=== PATIENT | female | born 1935 | race Caucasian/White ===

== ENCOUNTER 2018-10-14 09:26 | Observation (INO) ==
[2018-10-14 10:22] LABS: Hematocrit 44.5 % (37.0-47.0); Hemoglobin 14.5 gm/dL (12.5-16.0); Mean Cell Volume 97.8 fl (78-100); Mean Corpuscular Hemoglobin 31.9 pg (27-31); Mean Corpuscular Hgb Conc 32.6 g/dl (32-36); Mean Platelet Volume 10.4 fl (8-12.5); Neutrophil # 4.2 K/mm3 (1.3-6.0); Neutrophil % 89.8 % (42-75.0); Platelet Count 178 K/mm3 (150-450); Red Blood Count 4.55 M/mm3 (4.2-5.4); Red Cell Distribution Width 13.8 % (11.5-14.0); White Blood Count 4.7 K/mm3 (4.0-10.5)
[2018-10-14 10:30] LABS: Troponin I 0.059 ng/mL (0.00-0.10)
[2018-10-14 10:32] LABS: Albumin * 3.6 gm/dl (3.4-5.0); BUN/Creatinine Ratio 20.2 (9.0-21.6); Bilirubin, Total 0.6 mg/dL (0.0-1.1); Ca. Corrected For Albumin 10.1 mg/dL (8.4-10.2); Calcium * 10.1 mg/dL (7.9-10.9); Carbon Dioxide 28.4 mmol/L (24-32.6); Magnesium 1.8 mg/dL (1.2-2.8); Potassium 4.4 mmol/L (3.4-4.6); Total Protein 7.4 gm/dL (6.2-8.2)
[2018-10-14] MEDS ORDERED: FUROSEMIDE 10 MG/ML VIAL IV ONE (11:41)
--- NOTE | 2018-10-14 12:40 | ERNOTE ---
Dyspnea - General Presenting Symptoms: shortness of breath, difficulty of breathing Time Seen by Provider: 10/14/18 09:55 Source: patient Exam Limitations: no limitations - Immun/Allergies/Home Medications Immunizations: IMMUNIZATION HX Immunizations Up to Date Yes History of Influenza Vaccine No Hx Pneumococcal Vaccination No Allergies/Adverse Reactions: Allergies Sulfa (Sulfonamide Antibiotics) Allergy (Verified 10/14/18 09:48) Home Medications: HOME MEDICATIONS Enalapril Maleate [Vasotec] 10 mg PO BID 09/28/14 [Last Taken 09/27/14 17:00] Gemfibrozil [Lopid] 600 mg PO BID 09/28/14 [Last Taken 09/27/14 20:00] Cholecalciferol (Vitamin D3) [Vitamin D] 2,000 unit PO DAILY 04/11/17 [Last Taken Unknown] fluticasone 50 mcg/actuation nasal spray,suspension 2 spray GEOVANNA DAILY 03/20/18 [Last Taken Unknown] warfarin 4 mg tablet See Rx Instructions PO .COMPLEX #30 tab 06/11/18 [Last Taken Unknown] warfarin 5 mg tablet See Rx Instructions PO .COMPLEX #30 tab 06/11/18 [Last Taken Unknown] amlodipine 10 mg tablet 10 mg PO DAILY #30 tab 07/04/18 [Last Taken Unknown] metformin 500 mg tablet 500 mg PO BID #180 tab 09/06/18 [Last Taken Unknown] Blood Sugar Diagnostic [Accu-Chek Joellen Plus test strp] 0 strip .ROUTE .MED SUPPLY 10/14/18 [Last Taken Unknown] Methylcellulose [Fiber] 1,000 mg PO DAILY 10/14/18 [Last Taken Unknown] Novi-3 Fatty Acids [Novi-3] 1,000 mg PO DAILY 10/14/18 [Last Taken Unknown] - History of Present Illness Narrative: Patient presents with progressive shortness of breath, inability to lay flat on her back and swollen ankles. She rates his symptoms as at least moderate in severity. 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 Initiating event: Reports: none Frequency of episodes: Reports: no prior episodes Modifying Factors - (Improves): Reports: nothing Modifying Factors (Worsens): Reports: lying down Associated Symptoms-Dyspnea: Reports: denies symptoms Review of Systems - Review of Systems Constitutional: Present: See HPI EYE: Present: no symptoms reported ENT: Present: no symptoms reported Respiratory: Present: See HPI Cardiology: Present: no symptoms reported Gastrointestinal/Abdominal: Present: no symptoms reported Genitourinary: Present: no symptoms reported Musculoskeletal: Present: no symptoms reported Skin: Present: no symptoms reported Neurological: Present: no symptoms reported Endocrine: Present: no symptoms reported Hematologic/Lymphatic: Present: no symptoms reported Psych: Present: no symptoms reported Medical History (Last Reviewed 10/14/18 @ 09:48 by Jocelyn Kwok RN) Refused influenza vaccine (Acute) Onset Date: ~06/26/18 Anemia, aplastic Onset Date: Unknown Diabetes mellitus type 2 in nonobese Onset Date: Unknown Hyperlipidemia Onset Date: Unknown Hypertension Onset Date: Unknown Hypothyroidism Onset Date: Unknown Vitamin D deficiency Onset Date: Unknown Surgical History: Surgical History (Last Reviewed 10/14/18 @ 09:48 by Jocelyn Kwok RN) History of aortic valve replacement Onset Date: ~1987, History of cholecystectomy Onset Date: Unknown History of hysterectomy Onset Date: ~1964 Family History: Family History (Last Reviewed 10/14/18 @ 09:48 by Jocelyn Kwok RN) Mother Diabetes Hypertension CAD (coronary artery disease) Father , 78 Broken hip Social History: Preferred Language Turkmen Smoking Status Never smoker Have you smoked in the past 12 No months Alcohol Use none Drug Use none (Last Updated 06/26/18 @ 11:51 by Thu Lema MD) No Social History Section defined Physical Exam - Physical Exam General Appearance: Present: wd/wn, alert, moderate distress Head Exam: Present: normal inspection, no evidence of injury Eye Exam: Normal inspection: bilateral, PERRL: bilateral Ears, Nose, Throat: Present: normal ENT inspection, H, normal pharynx Neck: Present: normal inspection, nontender Respiratory: Present: no respiratory distress, no accessory muscle use, chest nontender, accessory muscle use, crackles - in bases Cardiovascular/Chest: Present: regular rate, rhythm, normal peripheral pulses, systolic murmur Gastrointestinal/Abdominal: Present: normal bowel sounds, nontender, nondistended, soft, no organomegaly Rectal Exam: Present: deferred Back Exam: Present: normal inspection, normal range of motion Extremity Exam: Present: normal inspection, non-tender, normal range of motion, extremity edema Neurological Exam: Present: alert, oriented, normal mood/affect Skin Exam: Present: normal color, warm/dry Lymphatic Exam: Present: no adenopathy Progress - Results and Orders Patient's Lab Results:: I have reviewed the patient's lab results. - Vital Signs Patient's Vital Signs:: I have reviewed the patient's vital signs. Vital Signs: Vital Signs 10/14/18 09:40 10/14/18 10:15 10/14/18 11:10 Temperature 37.2 C Pulse Rate 76 81 68 Respiratory Rate 22 H 21 H 12 Blood Pressure 157/72 H 145/89 150/57 H O2 Sat by Pulse Oximetry 91 L 89 L 90 L 10/14/18 11:15 10/14/18 11:40 10/14/18 11:55 Temperature Pulse Rate 68 69 70 Respiratory Rate 28 H 15 Blood Pressure 152/63 H 164/62 H O2 Sat by Pulse Oximetry 91 L 91 L - EKG EKG #1 EKG: NSR EKG read: Reviewed by me - X-Ray X-Ray #1 X-Ray: chest Interpretation: Reviewed by me - Progress/Reassessment Chief Complaint: Dyspnea Plan - Plan Plan: Patient was given 80 mg of Lasix IV push in the emergency department and she will be admitted overnight for attempted correction of her hyperanticoagulation, diuresis to remove or reduce some of the congestive heart failure and echocardiogram will likely be done. Departure Clinical Impression: Coagulation defect, Hypoxemia CHF (congestive heart failure) Qualifiers: Heart failure type: unspecified Heart failure chronicity: acute Qualified Code(s): I50.9 - Heart failure, unspecified - Departure Disposition: Still a patient Condition: Fair
--- NOTE | 2018-10-14 17:40 | HP ---
Chief Complaint - Chief Complaint Date of Service: 10/14/18 Time of Service: 17:27 Chief Complaint: Leg swelling History of Present Illness: This is an 82-year-old female with a past medical history of hypertension hyperlipidemia hypothyroidism anemia presents from home with complaints of lower extremity swelling for the past several weeks. She states that she called her PCPs office today to get an appointment regarding her lower extremity swelling and was asked to go to the emergency room. In the emergency department she was found to be hypoxic down to 89%, with Suprep therapeutic INR of 9, elevated BNP, chest x-ray positive for pulmonary vascular congestion. She is admitted to the CHF pathway. She received 1 dose of 80 mg IV Lasix with good diuresis.She is not actively bleeding from urine or stool. She did notice some blood when she blew her nose but is not having any active nosebleeds. Medical History (Last Reviewed 10/14/18 @ 13:13 by Estefanía Bonilla RN) Refused influenza vaccine (Acute) Onset Date: ~06/26/18 Anemia, aplastic Onset Date: Unknown Diabetes mellitus type 2 in nonobese Onset Date: Unknown Hyperlipidemia Onset Date: Unknown Hypertension Onset Date: Unknown Hypothyroidism Onset Date: Unknown Vitamin D deficiency Onset Date: Unknown Surgical History: Surgical History (Last Reviewed 10/14/18 @ 13:13 by Estefanía Bonilla RN) History of aortic valve replacement Onset Date: ~1987, History of cholecystectomy Onset Date: Unknown History of hysterectomy Onset Date: ~1964 Family History: Family History (Last Reviewed 10/14/18 @ 13:13 by Estefanía Bonilla RN) Mother Diabetes Hypertension CAD (coronary artery disease) Father , 78 Broken hip Social History: Patient Lives/Resources Home Utilized Occupation retired Preferred Language Turkmen Do you have any orthodox or Yes: Sabianist cultural preference? Smoking Status Never smoker Have you smoked in the past 12 No months Alcohol Use none Drug Use none (Last Updated 06/26/18 @ 11:51 by Thu Lema MD) No Social History Section defined Review Of Systems (GEN) - Review of Systems Generalized/Overall Review: Absent: Fever Respiratory: Absent: Shortness of Breath Cardiac: Present: Edema. Absent: Chest Pain Abdominal: Absent: Abdominal Pain Genitourinary: Present: Frequency Misc: All systems neg except as marked Immunizations: IMMUNIZATION HX Immunizations Up to Date Yes History of Influenza Vaccine No Hx Pneumococcal Vaccination No Allergies/Adverse Reactions: Allergies Allergy/AdvReac Type Severity Reaction Status Date / Time Sulfa (Sulfonamide Allergy Verified 10/14/18 09:48 Antibiotics) Home Medications: HOME MEDICATIONS Enalapril Maleate [Vasotec] 10 mg PO BID 09/28/14 [Last Taken 10/13/18] Gemfibrozil [Lopid] 600 mg PO BID 09/28/14 [Last Taken 10/13/18] Cholecalciferol (Vitamin D3) [Vitamin D] 2,000 unit PO DAILY 04/11/17 [Last Taken 10/13/18] fluticasone 50 mcg/actuation nasal spray,suspension 2 spray GEOVANNA DAILY 03/20/18 [Last Taken 10/13/18] warfarin 4 mg tablet See Rx Instructions PO .COMPLEX #30 tab 06/11/18 [Last Taken 10/13/18] warfarin 5 mg tablet See Rx Instructions PO .COMPLEX #30 tab 06/11/18 [Last Taken 10/13/18] amlodipine 10 mg tablet 10 mg PO DAILY #30 tab 07/04/18 [Last Taken 10/13/18] metformin 500 mg tablet 500 mg PO BID #180 tab 09/06/18 [Last Taken 10/13/18] Blood Sugar Diagnostic [Accu-Chek Joellen Plus test strp] 0 strip .ROUTE .MEDSUPPLY 10/14/18 [Last Taken Unknown] Methylcellulose [Fiber] 1,000 mg PO DAILY 10/14/18 [Last Taken 10/13/18] Kerrick-3 Fatty Acids [Kerrick-3] 1,000 mg PO DAILY 10/14/18 [Last Taken 10/13/18] Exam - Exam Vital Signs: Vital Signs - Last Taken Temp 36.4 C 10/14/18 13:16 Pulse 83 10/14/18 13:16 Resp 18 10/14/18 13:16 BP 146/59 10/14/18 13:16 Pulse Ox 96 10/14/18 13:16 Constitutional: Present: Alert, Cooperative, Well developed, Well nourished, No distress ENT Exam: Absent: hearing grossly normal Respiratory: Present: crackles - Bilateral bases left worse than right. Absent: accessory muscle use, rhonchi, wheezing Cardiovascular/Chest: Present: normal peripheral pulses Peripheral Pulses: dorsalis-pedis (R): 2+, dorsalis-pedis (L): 2+ Abdomen: Present: Normal bowel sounds, soft, nontender Extremity: Present: lower extremity edema - 1+ bilaterally Diagnostic Studies: Abnormal Lab Results 10/14/18 10/14/18 10/14/18 Range/Units 10:05 10:05 10:20 MCH 31.9 H (27-31) pg Neutrophils % 89.8 H (42-75.0) % Lymphocytes % 4.7 L (20-51) % Lymphocytes # 0.22 L (1.5-3.5) k/mm3 pO2 51.1 L (83.0-108.0) mmHg Total CO2 24.5 H (19.0-24.0) mmol/L ABG O2 Sat (Measured) 87.6 L (94.0-98.0) % Sodium 146 H (132-142) mmol/L Plasma Sodium 147 H (130-142) mmol/L Anion Gap 16.0 H (6.8-13.8) mmol/L Est GFR (Non-Af Amer) 57 L (60-130) mL/min Random Glucose 139 H (70-110) mg/dL ALT 10 L (19-67) U/L B-Natriuretic Peptide 3138 H (5-550) pg/mL Laboratory Results WBC 4.7 K/mm3 (4.0-10.5) 10/14/18 10:05 RBC 4.55 M/mm3 (4.2-5.4) 10/14/18 10:05 Hgb 14.5 gm/dL (12.5-16.0) 10/14/18 10:05 Hct 44.5 % (37.0-47.0) 10/14/18 10:05 MCV 97.8 fl (78-100) 10/14/18 10:05 MCH 31.9 pg (27-31) H 10/14/18 10:05 MCHC 32.6 g/dl (32-36) 10/14/18 10:05 RDW 13.8 % (11.5-14.0) 10/14/18 10:05 Plt Count 178 K/mm3 (150-450) 10/14/18 10:05 MPV 10.4 fl (8-12.5) 10/14/18 10:05 Immature Gran % (Auto) 0.20 % (0.001-0.429) 10/14/18 10:05 Immature Gran # (Auto) 0.01 K/mm3 (0.000-0.0310) 10/14/18 10:05 Neutrophils % 89.8 % (42-75.0) H 10/14/18 10:05 Lymphocytes % 4.7 % (20-51) L 10/14/18 10:05 Monocytes % 4.5 % (0.0-9) 10/14/18 10:05 Eosinophils % 0.6 % (0.0-3.0) 10/14/18 10:05 Basophils % 0.2 % (0.0-1.0) 10/14/18 10:05 Nucleated RBC % 0.0 k/mm3 (0-1) 10/14/18 10:05 Neutrophils # 4.2 K/mm3 (1.3-6.0) 10/14/18 10:05 Lymphocytes # 0.22 k/mm3 (1.5-3.5) L 10/14/18 10:05 Monocytes # 0.2 k/mm3 (0.0-1.0) 10/14/18 10:05 Eosinophils # 0.0 k/mm3 (0.0-0.7) 10/14/18 10:05 Absolute Basophils 0.0 k/mm3 (0.0-0.1) 10/14/18 10:05 pCO2 35.7 mmHg (32.0-45.0) 10/14/18 10:20 pO2 51.1 mmHg (83.0-108.0) L 10/14/18 10:20 HCO3 23.4 mmol/L (21.0-28.0) 10/14/18 10:20 Total CO2 24.5 mmol/L (19.0-24.0) H 10/14/18 10:20 Base Excess -0.3 mmol/L (-2.0-3.0) 10/14/18 10:20 ABG pH 7.44 (7.35-7.45) 10/14/18 10:20 ABG O2 Sat (Measured) 87.6 % (94.0-98.0) L 10/14/18 10:20 Sodium 146 mmol/L (132-142) H 10/14/18 10:05 Plasma Sodium 147 mmol/L (130-142) H 10/14/18 10:05 Potassium 4.4 mmol/L (3.4-4.6) 10/14/18 10:05 Chloride 106 mmol/L (97-106) 10/14/18 10:05 Carbon Dioxide 28.4 mmol/L (24-32.6) 10/14/18 10:05 Anion Gap 16.0 mmol/L (6.8-13.8) H 10/14/18 10:05 BUN 20 mg/dL (3-23) 10/14/18 10:05 Creatinine 0.99 mg/dL (0.4-1.4) 10/14/18 10:05 Est GFR (Non-Af Amer) 57 mL/min (60-130) L 10/14/18 10:05 BUN/Creatinine Ratio 20.2 (9.0-21.6) 10/14/18 10:05 Random Glucose 139 mg/dL (70-110) H 10/14/18 10:05 Calcium 10.1 mg/dL (7.9-10.9) 10/14/18 10:05 Calcium Adj for Albumin 10.1 mg/dL (8.4-10.2) 10/14/18 10:05 Magnesium 1.8 mg/dL (1.2-2.8) 10/14/18 10:05 Total Bilirubin 0.6 mg/dL (0.0-1.1) 10/14/18 10:05 AST 23 U/L (0-48) 10/14/18 10:05 ALT 10 U/L (19-67) L 10/14/18 10:05 Alkaline Phosphatase 83 U/L (50-170) 10/14/18 10:05 Troponin I 0.059 ng/mL (0.00-0.10) 10/14/18 10:05 B-Natriuretic Peptide 3138 pg/mL (5-550) H 10/14/18 10:05 Total Protein 7.4 gm/dL (6.2-8.2) 10/14/18 10:05 Albumin 3.6 gm/dl (3.4-5.0) 10/14/18 10:05 Assessment/Plan - Narrative Narrative: This is an 82-year-old female presenting with signs and symptoms of [facility]. She was also found to have a supratherapeutic INR, but is not actively bleeding. She has been admitted to the CHF pathway. We will diurese her and monitor her labs. - Assessment/Plan (1) CHF (congestive heart failure) Assessment: Her last echocardiogram was 2 years ago. I will order one now, continue with IV Lasix, monitor CMP, fluid and salt restriction. Problem: Acute Qualifiers: Heart failure type: unspecified Heart failure chronicity: acute Qualified Code(s): I50.9 - Heart failure, unspecified (2) Coagulation defect Assessment: INR on admission was 9 with no active bleed. Hold Coumadin and recheck INR in the morning. Problem: Acute (3) Hypoxemia Assessment: Continue with oxygen as needed. Problem: Acute (4) HTN (hypertension) Assessment: Continue enalapril and amlodipine. Problem: Acute (5) Diabetes Assessment: Continue home meds, metformin. Problem: Acute Qualifiers: Diabetes mellitus type: type 2 (6) HLD (hyperlipidemia) Assessment: Continue gemfibrozil. Problem: Acute
[2018-10-14] MEDS: ENALAPRIL MALEATE 5 MG TABLET PO SCH (20:59)
[2018-10-15 05:25] LABS: Hemoglobin 13.5 gm/dL (12.5-16.0); Mean Cell Volume 97.2 fl (78-100); Mean Corpuscular Hgb Conc 32.9 g/dl (32-36); Mean Platelet Volume 10.7 fl (8-12.5); Neutrophil # 2.8 K/mm3 (1.3-6.0); Neutrophil % 72.7 % (42-75.0); Platelet Count 143 K/mm3 (150-450); Red Blood Count 4.22 M/mm3 (4.2-5.4); Red Cell Distribution Width 13.5 % (11.5-14.0); White Blood Count 3.9 K/mm3 (4.0-10.5)
[2018-10-15 05:47] LABS: Anion Gap 13.3 mmol/L (6.8-13.8); BUN/Creatinine Ratio 20.2 (9.0-21.6); Bilirubin, Total 0.7 mg/dL (0.0-1.1); Ca. Corrected For Albumin 9.2 mg/dL (8.4-10.2); Calcium * 8.7 mg/dL (7.9-10.9); Carbon Dioxide 29.8 mmol/L (24-32.6); Potassium 4.1 mmol/L (3.4-4.6); Total Protein 6.7 gm/dL (6.2-8.2)
[2018-10-15 06:01] LABS: Prothrombin Time (Patient) 87.8 Seconds (9.0-11.0)
[2018-10-15 06:36] LABS: INR 8.59 INR (0.90-1.10)
[2018-10-15] MEDS ORDERED: GEMFIBROZIL 600 MG TABLET PO SCH (07:00)
[2018-10-15] MEDS ORDERED: metFORMIN HCL 500 MG TABLET PO SCH (09:00)
[2018-10-15] MEDS ORDERED: FUROSEMIDE 40 MG TABLET PO SCH (09:00)
[2018-10-15] MEDS ORDERED: amLODIPine BESYLATE 10 MG TABLET PO SCH (09:00)
[2018-10-15] MEDS: ENALAPRIL MALEATE 5 MG TABLET PO SCH (09:12)
[2018-10-15] MEDS ORDERED: PHYTONADIONE (VIT K1) 5 MG TABLET PO ONE (09:17)
--- NOTE | 2018-10-15 11:31 | DS ---
(1) CHF (congestive heart failure) Diagnosis(s): She is asymptomatic. Denies shortness of breath. I will send her home on a 2- week supply of oral Lasix at 20 mg every other day. She is advised to follow-up with her primary care physician Dr. Lema and her french folder Dr. Diallo to determine whether or not she needs to continue on Lasix. I recommend that she monitors the swelling in her legs, and if her legs began to swell again she should take Lasix every day. She should get an echocardiogram as an outpatient. Problem: Acute Qualifiers: Heart failure type: unspecified Heart failure chronicity: acute Qualified Code(s): I50.9 - Heart failure, unspecified (2) Coagulation defect Diagnosis(s): Her INR is still elevated at 8.59 today. We will continue holding her warfarin. She received 1 dose of vitamin K at 2.5 mg. She will follow-up with the Coumadin clinic on October 17, 2018. Problem: Acute (3) Hypoxemia Diagnosis(s): We will attempt to titrate her off of the oxygen. She denies shortness of breath at rest and with ambulation. Problem: Acute (4) HTN (hypertension) Diagnosis(s): Stable continue home medications. Problem: Chronic Qualifiers: Hypertension type: essential hypertension Qualified Code(s): I10 - Essential (primary) hypertension (5) Diabetes Diagnosis(s): Stable continue home medications. Problem: Chronic Qualifiers: Diabetes mellitus type: type 2 (6) HLD (hyperlipidemia) Diagnosis(s): Stable continue home medications. Problem: Chronic Description of Stay: 82-year-old female with past medical history of hypertension, hyperlipidemia, hypothyroidism with complaints, anemia presents from home of lower extremity swelling for the past several weeks. She contacted her primary care physician's office and was asked to go to the emergency room. She was found to have an elevated BNP of over 3000, chest x-ray showed pulmonary vascular congestion. She was admitted to the CHF pathway. She will received 1 dose of IV Lasix at 80 mg, with good diuresis she was transitioned to oral Lasix which she tolerated well. She lost about 8 pounds of water weight. Patient on admission was also found to have a supra therapeutic INR of 9. No active bleed. Warfarin was held and her INR dropped to 8.59 the next day. She then received 1 dose of vitamin K at 2.5 mg. She will follow-up with her primary care physician Dr. Lema within 1 week of discharge. She states she has an appointment with her french folder Dr. Diallo on October 28. I recommend that she get an echocardiogram as an outpatient. She will follow-up with the Coumadin clinic in 2 days after discharge from hospital. Procedures Performed: none Results and Findings: Lab Pending Results 10/14/18 10:05: WBC 4.7, RBC 4.55, Hgb 14.5, Hct 44.5, MCV 97.8, MCH 31.9 H, MCHC 32.6, RDW 13.8, Plt Count 178, MPV 10.4, Immature Gran % (Auto) 0.20, Immature Gran # (Auto) 0.01, Neutrophils % 89.8 H, Lymphocytes % 4.7 L, Monocytes % 4.5, Eosinophils % 0.6, Basophils % 0.2, Nucleated RBC % 0.0, Neutrophils # 4.2, Lymphocytes # 0.22 L, Monocytes # 0.2, Eosinophils # 0.0, Absolute Basophils 0.0 10/14/18 10:05: Sodium 146 H, Plasma Sodium 147 H, Potassium 4.4, Chloride 106, Carbon Dioxide 28.4, Anion Gap 16.0 H, BUN 20, Creatinine 0.99, Est GFR (Non-Af Amer) 57 L, BUN/Creatinine Ratio 20.2, Random Glucose 139 H, Calcium 10.1, Calcium Adj for Albumin 10.1, Magnesium 1.8, Total Bilirubin 0.6, AST 23, ALT 10 L, Alkaline Phosphatase 83, Troponin I 0.059, B-Natriuretic Peptide 3138 H, Total Protein 7.4, Albumin 3.6 10/14/18 10:20: pCO2 35.7, pO2 51.1 L, HCO3 23.4, Total CO2 24.5 H, Base Excess -0.3, ABG pH 7.44, ABG O2 Sat (Measured) 87.6 L 10/15/18 05:15: PT 87.8 H, INR (Anticoag Therapy) 8.59 H* 10/15/18 05:15: WBC 3.9 L, RBC 4.22, Hgb 13.5, Hct 41.0, MCV 97.2, MCH 32.0 H, MCHC 32.9, RDW 13.5, Plt Count 143 L, MPV 10.7, Immature Gran % (Auto) 0.00 L, Immature Gran # (Auto) 0.00, Neutrophils % 72.7, Lymphocytes % 13.6 L, Monocytes % 9.3 H, Eosinophils % 3.6 H, Basophils % 0.8, Nucleated RBC % 0.0, Neutrophils # 2.8, Lymphocytes # 0.53 L, Monocytes # 0.4, Eosinophils # 0.1, Absolute Basophils 0.0 10/15/18 05:15: Sodium 144 H, Plasma Sodium 144 H, Potassium 4.1, Chloride 105, Carbon Dioxide 29.8, Anion Gap 13.3, BUN 20, Creatinine 0.99, Est GFR (Non-Af Amer) 57 L, BUN/Creatinine Ratio 20.2, Random Glucose 119 H, Calcium 8.7, Calcium Adj for Albumin 9.2, Total Bilirubin 0.7, AST 29, ALT 8 L, Alkaline Phosphatase 79, Total Protein 6.7, Albumin 3.0 L Discharge Location: Home Disposition: Home self-care Condition: Fair Referrals: Thu Lema MD [Primary Care Provider] - Additional Patient Instructions (free text): -Please make TCM appointment unless senior care discharge. Thank you! Naina @ [phone]. Prescriptions (Any new or edited meds): Furosemide [Lasix] 20 mg PO Q48H #14 tab Complete Home Medications List: Complete Home Medication List: Enalapril Maleate [Vasotec] 10 mg PO BID 09/28/14 Gemfibrozil [Lopid] 600 mg PO BID 09/28/14 Cholecalciferol (Vitamin D3) [Vitamin D3] 2,000 unit PO DAILY 04/11/17 fluticasone 50 mcg/actuation nasal spray,suspension 2 spray GEOVANNA DAILY 03/20/18 warfarin 4 mg tablet See Rx Instructions PO .COMPLEX #30 tab 06/11/18 warfarin 5 mg tablet See Rx Instructions PO .COMPLEX #30 tab 06/11/18 amlodipine 10 mg tablet 10 mg PO DAILY #30 tab 07/04/18 metformin 500 mg tablet 500 mg PO BID #180 tab 09/06/18 Blood Sugar Diagnostic [Contour Test Strip] 0 strip .ROUTE .MEDSUPPLY 10/14/18 Methylcellulose [Fiber] 1,000 mg PO DAILY 10/14/18 Amasa-3 Fatty Acids [Amasa-3] 1,000 mg PO DAILY 10/14/18 Furosemide [Lasix] 20 mg PO Q48H #14 tab 10/15/18
[2018-10-15 14:08] VITALS: BP 117/63
== END 2018-10-15 13:15 | disposition home or self-care (01) ==
LOC: ER 09:26 → INTOOBSV 11:57 → MS 11:57
PROVIDERS: ADMIT Internal Medicine; ATTEND Internal Medicine
DX: I50.9 Heart failure, unspecified; E11.9 Type 2 diabetes mellitus without complications; D68.9 Coagulation defect, unspecified; R09.02 Hypoxemia; E78.5 Hyperlipidemia, unspecified; I10 Essential (primary) hypertension
CPT/HCPCS: 36415; 36600; 71020; 71046; 80053; 82803; 83519; 83735; 83880; 84484; 85025; 85610; 93005; 96374; 99285; G0378

== ENCOUNTER 2019-02-01 13:52 | Observation (INO) ==
[2019-02-01] MEDS ORDERED: ALBUTEROL SULFATE/IPRATROPIUM 3 ML NEBU IH ONE (14:15)
[2019-02-01 14:38] LABS: Hematocrit 41.2 % (37.0-47.0); Hemoglobin 12.9 gm/dL (12.5-16.0); Mean Cell Volume 97.9 fl (78-100); Mean Corpuscular Hemoglobin 30.6 pg (27-31); Mean Corpuscular Hgb Conc 31.3 g/dl (32-36); Mean Platelet Volume 10.1 fl (8-12.5); Neutrophil # 3.3 K/mm3 (1.3-6.0); Neutrophil % 78.9 % (42-75.0); Platelet Count 152 K/mm3 (150-450); Red Blood Count 4.21 M/mm3 (4.2-5.4); Red Cell Distribution Width 13.9 % (11.5-14.0); White Blood Count 4.2 K/mm3 (4.0-10.5)
--- NOTE | 2019-02-01 14:45 | ERNOTE ---
Time Seen by Provider: 02/01/19 14:07 Stated Complaint: Cough x 3-4 weeks Presenting Symptoms:: cough Source: patient Exam Limitations: no limitations Immunizations: IMMUNIZATION HX Immunizations Up to Date Yes History of Influenza Vaccine No Hx Pneumococcal Vaccination No Allergies/Adverse Reactions: Allergies Sulfa (Sulfonamide Antibiotics) Allergy (Verified 02/01/19 14:05) Home Medications: HOME MEDICATIONS Gemfibrozil [Lopid] 600 mg PO BID 09/28/14 [Last Taken 10/13/18] Cholecalciferol (Vitamin D3) [Vitamin D3] 2,000 unit PO DAILY 04/11/17 [Last Taken 10/13/18] fluticasone 50 mcg/actuation nasal spray,suspension 2 spray GEOVANNA DAILY 03/20/18 [Last Taken 10/13/18] warfarin 4 mg tablet See Rx Instructions PO .COMPLEX #30 tab 06/11/18 [Last Taken 10/13/18] warfarin 5 mg tablet See Rx Instructions PO .COMPLEX #30 tab 06/11/18 [Last Taken 10/13/18] amlodipine 10 mg tablet 10 mg PO DAILY #30 tab 07/04/18 [Last Taken 10/13/18] metformin 500 mg tablet 500 mg PO BID #180 tab 09/06/18 [Last Taken 10/13/18] Blood Sugar Diagnostic [Contour Test Strip] 0 strip .ROUTE .MEDSUPPLY 10/14/18 [Last Taken Unknown] Methylcellulose [Fiber] 1,000 mg PO DAILY 10/14/18 [Last Taken 10/13/18] Caldwell-3 Fatty Acids [Caldwell-3] 1,000 mg PO DAILY 10/14/18 [Last Taken 10/13/18] promethazine 6.25 mg-codeine 10 mg/5 mL syrup 5 ml PO Q6H PRN #118 ml 10/22/18 [Last Taken Unknown] Losartan Potassium [Cozaar] 100 mg PO DAILY 11/19/18 [Last Taken Unknown] furosemide 20 mg tablet 20 mg PO DAILY #30 tab 12/09/18 [Last Taken Unknown] - History of Present Ilness Narrative: Patient presents with a cough over the past 3 to 4 weeks, however is gotten worse over the last 5 to 7 days. Patient denies any pain, sputum or hemoptysis Timing: getting worse Severity: moderate Frequency/Possible Cause: Reports: no prior episodes Modifying Factors - Improves: Reports: nothing Modifying Factors - Worsens: Reports: activity, coughing Associated Symptoms: Reports: cough Review of Systems - Review of Systems Constitutional: Present: See HPI EYE: Present: no symptoms reported ENT: Present: no symptoms reported Respiratory: Present: See HPI Cardiology: Present: no symptoms reported Gastrointestinal/Abdominal: Present: no symptoms reported Genitourinary: Present: no symptoms reported Musculoskeletal: Present: no symptoms reported Skin: Present: no symptoms reported Neurological: Present: no symptoms reported Endocrine: Present: no symptoms reported Hematologic/Lymphatic: Present: no symptoms reported Psych: Present: no symptoms reported Medical History (Updated 10/15/18 @ 11:36 by Irish Marquez MD) Refused influenza vaccine (Acute) Onset Date: ~06/26/18 Anemia, aplastic Onset Date: Unknown Diabetes mellitus type 2 in nonobese Onset Date: Unknown Hyperlipidemia Onset Date: Unknown Hypertension Onset Date: Unknown Hypothyroidism Onset Date: Unknown Vitamin D deficiency Onset Date: Unknown Surgical History: Surgical History (Updated 10/15/18 @ 11:36 by Irish Marquez MD) History of aortic valve replacement Onset Date: ~1987, History of cholecystectomy Onset Date: Unknown History of hysterectomy Onset Date: ~1964 Family History: Family History (Updated 03/20/18 @ 07:37 by Tashia Matthews CMA) Mother Diabetes Hypertension CAD (coronary artery disease) Father , 78 Broken hip Social History: Preferred Language Ecuadorean Smoking Status Never smoker Alcohol Use none Drug Use none (Last Updated 10/23/18 @ 12:41 by Thu Lema MD) No Social History Section defined Physical Exam - Physical Exam General Appearance: Present: wd/wn, alert, mild distress Head Exam: Present: normal inspection, no evidence of injury Eye Exam: Normal inspection: bilateral, PERRL: bilateral Ears, Nose, Throat: Present: normal ENT inspection, H, normal pharynx Neck: Present: normal inspection, nontender Respiratory: Present: no accessory muscle use, chest nontender, respiratory distress - Mild, rales - Right middle lobe Cardiovascular/Chest: Present: regular rate, rhythm, no murmur, normal peripheral pulses Gastrointestinal/Abdominal: Present: normal bowel sounds, nontender, nondistended, soft, no organomegaly Rectal Exam: Present: deferred Back Exam: Present: normal inspection, normal range of motion Extremity Exam: Present: normal inspection, non-tender, no edema, normal range of motion Neurological Exam: Present: alert, oriented, normal mood/affect Skin Exam: Present: normal color, warm/dry Lymphatic Exam: Present: no adenopathy Progress - Results and Orders Patient's Lab Results:: I have reviewed the patient's lab results. - Vital Signs Patient's Vital Signs:: I have reviewed the patient's vital signs. Vital Signs: Vital Signs 02/01/19 14:01 02/01/19 14:07 02/01/19 14:24 Temperature 37.5 C Pulse Rate 83 87 Respiratory Rate 22 H 16 Blood Pressure 140/67 O2 Sat by Pulse Oximetry 84 L 94 99 02/01/19 14:28 Temperature Pulse Rate 82 Respiratory Rate 14 Blood Pressure 138/63 O2 Sat by Pulse Oximetry 2 L - EKG EKG #1 EKG: MINA EKG read: Reviewed by me - X-Ray X-Ray #1 X-Ray: chest Interpretation: Reviewed by me - Progress/Reassessment Chief Complaint: Cough Plan - Plan Plan: Despite not having a diagnosis of pulmonary fibrosis, the chest x-ray certainly has had appearance. Without oxygen support the patient's O2 saturation falls down to 83-84%. Patient will be admitted overnight for some aggressive pulmonary toilet, evaluation for home O2 and likely the ability to provide nebulizer treatments to her self. Given the patient's underlying history of aplastic anemia it is unclear exactly how much infectious etiology this has. I will treat her presumptive for an underlying bronchitis and will start her on Rocephin and Zithromax. Patient is very suspicious for an interstitial pneumonia, especially given the low-grade fever and a cough over the past 3 to 4 weeks. Departure Clinical Impression: Hypoxemia, Pulmonary fibrosis - Departure Disposition: Still a patient Condition: Fair Referrals: Thu Lema MD [Primary Care Provider] -
[2019-02-01 14:46] LABS: Prothrombin Time (Patient) 30.1 Seconds (9.1-10.7)
[2019-02-01 14:47] LABS: INR 3.18 INR (0.92-1.08)
[2019-02-01 14:54] LABS: Albumin * 3.5 gm/dl (3.4-5.0); Anion Gap 13.3 mmol/L (6.8-13.8); Bilirubin, Total 0.5 mg/dL (0.0-1.1); Ca. Corrected For Albumin 9.7 mg/dL (8.4-10.2); Calcium * 9.6 mg/dL (7.9-10.9); Carbon Dioxide 28.2 mmol/L (24-32.6); Potassium 4.5 mmol/L (3.4-4.6); Total Protein 7.5 gm/dL (6.2-8.2)
[2019-02-01 15:11] LABS: Troponin I 0.041 ng/mL (0.00-0.10)
[2019-02-01] MEDS ORDERED: cefTRIAXone SODIUM 1,000 MG/100 ML BAG IV ONE (15:41)
[2019-02-01] MEDS ORDERED: AZITHROMYCIN 250 MG TABLET PO ONE (15:42)
--- NOTE | 2019-02-01 17:13 | HP ---
Chief Complaint - Chief Complaint Date of Service: 02/01/19 Time of Service: 16:30 Chief Complaint: dyspnea, hypoxemia History of Present Illness: Sylvia Barclay is an 83-year-old female patient who was brought to the emergency room because of shortness of breath. When she first came to the emergency room her oxygen sat was barely above 70%. After resting her O2 sat came up to 85% on room air. She was then placed on oxygen at 2 L that brought it up to 93 to 94%. At this time she is on oxygen at 2 L and is no longer feeling air hungry. Chest x-ray shows a lot of scar tissue in her lungs that may be from some autoimmune process or sarcoidosis. It does not have the typical appearance of interstitial fibrosis. The CBC has a normal white count hemoglobin and hematocrit and she is not anemic although she has a remote history of aplastic anemia. Platelets are also normal. 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 The first 1 lasted about 3 years and the second 1 has lasted almost 30 years. She does have an elevated BNP of 2019. Her renal function is excellent. Liver enzymes are normal. It appears that she may be oxygen dependent and will have to make arrangements for home oxygen, nebulizer treatments etc. Medical History (Updated 02/01/19 @ 15:43 by Jayy Gonzalez DO) Refused influenza vaccine (Acute) Onset Date: ~06/26/18 Anemia, aplastic Onset Date: Unknown Diabetes mellitus type 2 in nonobese Onset Date: Unknown Hyperlipidemia Onset Date: Unknown Hypertension Onset Date: Unknown Hypothyroidism Onset Date: Unknown Vitamin D deficiency Onset Date: Unknown Surgical History: Surgical History (Updated 10/15/18 @ 11:36 by Irish Marquez MD) History of aortic valve replacement Onset Date: ~1987, History of cholecystectomy Onset Date: Unknown History of hysterectomy Onset Date: ~1964 Family History: Family History (Updated 03/20/18 @ 07:37 by Tashia Matthews CMA) Mother Diabetes Hypertension CAD (coronary artery disease) Father , 78 Broken hip Social History: Patient Lives/Resources Home Utilized Occupation retired Preferred Language Bengali Do you have any sikh or Yes: Pentecostal cultural preference? Smoking Status Never smoker Have you smoked in the past 12 No months Do you dip or chew tobacco No Alcohol Use none Drug Use none (Last Updated 10/23/18 @ 12:41 by Thu Lema MD) No Social History Section defined Review Of Systems (GEN) - Review of Systems EENTM: Present: No Symptoms Reported Respiratory: Present: Cough, Shortness of Breath, Wheezing Cardiac: Present: No Symptoms Reported. Absent: Chest Pain, Edema, Palpitations Abdominal: Present: No Symptoms Reported, Nausea. Absent: Vomiting Genitourinary: Present: No Symptoms Reported Musculoskeletal: Present: No Symptoms Reported Neurological: Present: No Symptoms Reported Skin: Present: No Symptoms Reported Endocrine: Present: No Symptoms Reported Immunizations: IMMUNIZATION HX Immunizations Up to Date Yes History of Influenza Vaccine No Hx Pneumococcal Vaccination No Allergies/Adverse Reactions: Allergies Allergy/AdvReac Type Severity Reaction Status Date / Time Sulfa (Sulfonamide Allergy Verified 02/01/19 14:05 Antibiotics) Home Medications: HOME MEDICATIONS Gemfibrozil [Lopid] 600 mg PO BID 09/28/14 [Last Taken 10/13/18] Cholecalciferol (Vitamin D3) [Vitamin D3] 2,000 unit PO DAILY 04/11/17 [Last Taken 10/13/18] warfarin 4 mg tablet See Rx Instructions PO .COMPLEX #30 tab 06/11/18 [Last Taken 10/13/18] warfarin 5 mg tablet See Rx Instructions PO .COMPLEX #30 tab 06/11/18 [Last Taken 10/13/18] amlodipine 10 mg tablet 10 mg PO DAILY #30 tab 07/04/18 [Last Taken 10/13/18] metformin 500 mg tablet 500 mg PO BID #180 tab 09/06/18 [Last Taken 10/13/18] Blood Sugar Diagnostic [Contour Test Strip] 0 strip .ROUTE .MEDSUPPLY 10/14/18 [Last Taken Unknown] Methylcellulose [Fiber] 1,000 mg PO BID 10/14/18 [Last Taken 10/13/18] [place]-3 Fatty Acids [[place]-3] 1,000 mg PO DAILY 10/14/18 [Last Taken 10/13/18] Losartan Potassium [Cozaar] 100 mg PO DAILY 11/19/18 [Last Taken Unknown] furosemide 20 mg tablet 20 mg PO DAILY #30 tab 12/09/18 [Last Taken Unknown] Exam - Exam Vital Signs: Vital Signs - Last Taken Temp 36.8 C 02/01/19 16:08 Pulse 83 02/01/19 16:15 Resp 16 05/18/19 16:15 BP 124/57 02/01/19 16:15 Pulse Ox 96 02/01/19 16:15 Constitutional: Present: Alert, Oriented x3, Cooperative, Well developed, Well nourished, No distress ENT Exam: Present: normal ENT inspection, hearing grossly normal, pharynx normal, TMs normal Eye Exam: bilateral eye: normal inspection, PERRL, EOMI Neck: Present: non-tender, full range of motion, supple, normal inspection, trachea midline Back Exam: Present: normal inspection, no CVA tenderness, no vertebral tenderness Respiratory: Present: decreased breath sounds, accessory muscle use, expiration (prolonged), No wheezing Cardiovascular/Chest: Present: normal peripheral pulses, regular rate, rhythm, no chest tenderness, no edema, no gallop, no JVD, no murmur, no rub. Absent: edema Peripheral Pulses: carotid (R): 2+, carotid (L): 2+, radial (R): 2+, radial (L): 2+ Abdomen: Present: Normal bowel sounds, soft, nontender, nondistended, no rebound tenderness, no hepatospenomegaly, no masses /Rectal: Present: Exam deferred Extremity: Present: normal range of motion, non-tender, normal inspection, no pedal edema, no calf tenderness, normal capillary refill Skin Exam: Present: normal color, warm/dry, no cyanosis Lymphatic: Present: no adenopathy Neurologic: Present: lens polisher hand II-XII nml as tested, normal cerebellar test, no motor/sensory deficits, alert, normal mood/affect, oriented x 3 Appearance: Present: appropriate appearance, appropriate insight, neat, no memory impairment, denies illness Eye contact: Present: cooperative, good eye contact, normal speech, avoids eye contact Thoughts: Present: normal thought pattern, no apparent hallucination, auditory hallucinations Diagnostic Studies: Abnormal Lab Results 02/01/19 02/01/19 02/01/19 Range/Units 14:15 14:15 14:15 MCHC 31.3 L (32-36) g/dl Immature Gran % (Auto) 0.00 L (0.001-0.429) % Neutrophils % 78.9 H (42-75.0) % Lymphocytes % 9.5 L (20-51) % Monocytes % 10.2 H (0.0-9) % Lymphocytes # 0.40 L (1.5-3.5) k/mm3 PT 30.1 H (9.1-10.7) Seconds INR (Anticoag Therapy) 3.18 H (0.92-1.08) INR BUN 30 H (3-23) mg/dL Est GFR (Non-Af Amer) 46 L (60-130) mL/min BUN/Creatinine Ratio 25.0 H (9.0-21.6) Random Glucose 130 H (70-110) mg/dL ALT 13 L (19-67) U/L B-Natriuretic Peptide (5-550) pg/mL 02/01/19 Range/Units 14:15 MCHC (32-36) g/dl Immature Gran % (Auto) (0.001-0.429) % Neutrophils % (42-75.0) % Lymphocytes % (20-51) % Monocytes % (0.0-9) % Lymphocytes # (1.5-3.5) k/mm3 PT (9.1-10.7) Seconds INR (Anticoag Therapy) (0.92-1.08) INR BUN (3-23) mg/dL Est GFR (Non-Af Amer) (60-130) mL/min BUN/Creatinine Ratio (9.0-21.6) Random Glucose (70-110) mg/dL ALT (19-67) U/L B-Natriuretic Peptide 2019 H (5-550) pg/mL Laboratory Results WBC 4.2 K/mm3 (4.0-10.5) 02/01/19 14:15 RBC 4.21 M/mm3 (4.2-5.4) 02/01/19 14:15 Hgb 12.9 gm/dL (12.5-16.0) 02/01/19 14:15 Hct 41.2 % (37.0-47.0) 02/01/19 14:15 MCV 97.9 fl (78-100) 02/01/19 14:15 MCH 30.6 pg (27-31) 02/01/19 14:15 MCHC 31.3 g/dl (32-36) L 02/01/19 14:15 RDW 13.9 % (11.5-14.0) 02/01/19 14:15 Plt Count 152 K/mm3 (150-450) 02/01/19 14:15 MPV 10.1 fl (8-12.5) 02/01/19 14:15 Immature Gran % (Auto) 0.00 % (0.001-0.429) L 02/01/19 14:15 Immature Gran # (Auto) 0.00 K/mm3 (0.000-0.0310) 02/01/19 14:15 78.9 % (42-75.0) H 02/01/19 14:15 9.5 % (20-51) L 02/01/19 14:15 10.2 % (0.0-9) H 02/01/19 14:15 0.7 % (0.0-3.0) 02/01/19 14:15 0.7 % (0.0-1.0) 02/01/19 14:15 Nucleated RBC % 0.0 k/mm3 (0-1) 02/01/19 14:15 3.3 K/mm3 (1.3-6.0) 02/01/19 14:15 0.40 k/mm3 (1.5-3.5) L 02/01/19 14:15 0.4 k/mm3 (0.0-1.0) 02/01/19 14:15 0.0 k/mm3 (0.0-0.7) 02/01/19 14:15 Absolute Basophils 0.0 k/mm3 (0.0-0.1) 02/01/19 14:15 PT 30.1 Seconds (9.1-10.7) H 02/01/19 14:15 INR (Anticoag Therapy) 3.18 INR (0.92-1.08) H 02/01/19 14:15 Sodium 136 mmol/L (132-142) 02/01/19 14:15 136 mmol/L (130-142) 02/01/19 14:15 Potassium 4.5 mmol/L (3.4-4.6) 02/01/19 14:15 Chloride 99 mmol/L (97-106) 02/01/19 14:15 Carbon Dioxide 28.2 mmol/L (24-32.6) 02/01/19 14:15 13.3 mmol/L (6.8-13.8) 02/01/19 14:15 BUN 30 mg/dL (3-23) H 02/01/19 14:15 1.20 mg/dL (0.4-1.4) 02/01/19 14:15 Est GFR (Non-Af Amer) 46 mL/min (60-130) L 02/01/19 14:15 25.0 (9.0-21.6) H 02/01/19 14:15 130 mg/dL (70-110) H 02/01/19 14:15 1.1 mmol/L (0.4-2.0) 02/01/19 14:15 Calcium 9.6 mg/dL (7.9-10.9) 02/01/19 14:15 Calcium Adj for Albumin 9.7 mg/dL (8.4-10.2) 02/01/19 14:15 0.5 mg/dL (0.0-1.1) 02/01/19 14:15 AST 22 U/L (0-48) 02/01/19 14:15 ALT 13 U/L (19-67) L 02/01/19 14:15 98 U/L (50-170) 02/01/19 14:15 0.041 ng/mL (0.00-0.10) 02/01/19 14:15 B-Natriuretic Peptide 2019 pg/mL (5-550) H 02/01/19 14:15 7.5 gm/dL (6.2-8.2) 02/01/19 14:15 3.5 gm/dl (3.4-5.0) 02/01/19 14:15 Assessment/Plan - Narrative Narrative: 1. Respiratory therapy treatments through the night 2. Continue IV antibiotics empirically 3. Arrange for home oxygen equipment, a portable oxygen concentrator, and nebulizer equipment with [employer]. - Assessment/Plan (1) Dyspnea on minimal exertion Problem: Acute (2) Hypoxemia Problem: Acute (3) Pneumonia Problem: Acute Qualifiers: Pneumonia type: due to unspecified organism Laterality: bilateral Lung location: unspecified part of lung Qualified Code(s): J18.9 - Pneumonia, unspecified organism
[2019-02-01] MEDS ORDERED: WARFARIN SODIUM 5 MG TABLET PO SCH (17:15)
[2019-02-01] MEDS ORDERED: AZITHROMYCIN 250 MG TABLET ONE (17:30)
[2019-02-01] MEDS: metFORMIN HCL 500 MG TABLET PO SCH (17:32)
[2019-02-01] MEDS: GEMFIBROZIL 600 MG TABLET PO SCH (21:46)
[2019-02-02] MEDS: ALBUTEROL SULFATE/IPRATROPIUM 3 ML NEBU IH PRN ×4 (00:19→23:39)
[2019-02-02 06:15] LABS: Hematocrit 39.9 % (37.0-47.0); Hemoglobin 12.3 gm/dL (12.5-16.0); Mean Cell Volume 100.5 fl (78-100); Mean Corpuscular Hgb Conc 30.8 g/dl (32-36); Mean Platelet Volume 10.6 fl (8-12.5); Neutrophil % 86.8 % (42-75.0); Platelet Count 140 K/mm3 (150-450); Red Blood Count 3.97 M/mm3 (4.2-5.4); Red Cell Distribution Width 13.8 % (11.5-14.0); White Blood Count 4.6 K/mm3 (4.0-10.5)
[2019-02-02 06:40] LABS: Anion Gap 11.7 mmol/L (6.8-13.8); BUN/Creatinine Ratio 22.7 (9.0-21.6); Carbon Dioxide 31.7 mmol/L (24-32.6); Estimated Creat Clear 33.2; Potassium 4.4 mmol/L (3.4-4.6)
[2019-02-02 07:30] LABS: Prothrombin Time (Patient) 33.5 Seconds (9.1-10.7)
[2019-02-02 07:35] LABS: INR 3.55 INR (0.92-1.08)
[2019-02-02] MEDS: FUROSEMIDE 20 MG TABLET PO SCH (08:27)
[2019-02-02] MEDS: metFORMIN HCL 500 MG TABLET PO SCH ×2 (08:27→16:38)
[2019-02-02] MEDS: LOSARTAN POTASSIUM 50 MG TABLET PO SCH (08:27)
[2019-02-02] MEDS: amLODIPine BESYLATE 10 MG TABLET PO SCH (08:27)
[2019-02-02] MEDS: GEMFIBROZIL 600 MG TABLET PO SCH ×2 (08:28→20:48)
--- NOTE | 2019-02-02 09:48 | PN ---
Subjective - Date and Time Seen Date: 02/02/19 Time: 07:50 Subjective Narrative: has had a restful night. She said she slept 3 hours without waking which is unusual for her because she is usually having to get up to go to the bathroom. She is in good spirits this morning. She continues to cough and have scattered rhonchi and wheezes. Nursing got her up to walk initially without her oxygen on and she quickly desaturated down to 79%. On 2 L nasal cannula while walking she was at 85% and at rest is 90%. This establishes that she will require oxygen when she goes home and will not be able to get that for her until tomorrow. She will need a home concentrator, a portable concentrator, and a nebulizer with nebulizer solutions to include albuterol, budesonide, and formoterol. Objective - Review of Systems Generalized/Overall Review: Reports: No Symptoms Reported EENTM: Reports: No Symptoms Reported Respiratory: Reports: Cough, Wheezing Cardiac: Reports: No Symptoms Reported Abdominal: Reports: No Symptoms Reported Genitourinary Symptoms: Reports: No Symptoms Reported Musculoskeletal Complaints: Reports: No Symptoms Reported Neurological: Reports: No Symptoms Reported Skin: Reports: No Symptoms Reported Endocrine: Reports: No Symptoms Reported - Vitals Vitals: Last Vital Signs Temp 37.4 C 02/02/19 07:34 Pulse 86 02/02/19 08:27 Resp 28 H 02/02/19 07:34 BP 115/53 02/02/19 08:27 Pulse Ox 90 L 02/02/19 07:34 - Abnormal Lab Findings Abnormal Lab Findings: Abnormal Lab Results 02/01/19 02/01/19 02/01/19 Range/Units 14:15 14:15 14:15 RBC (4.2-5.4) M/mm3 Hgb (12.5-16.0) gm/dL MCV (78-100) fl MCHC 31.3 L (32-36) g/dl Plt Count (150-450) K/mm3 Immature Gran % (Auto) 0.00 L (0.001-0.429) % Neutrophils % 78.9 H (42-75.0) % Lymphocytes % 9.5 L (20-51) % Monocytes % 10.2 H (0.0-9) % Lymphocytes # 0.40 L (1.5-3.5) k/mm3 PT 30.1 H (9.1-10.7) Seconds INR (Anticoag Therapy) 3.18 H (0.92-1.08) INR Sodium (132-142) mmol/L Plasma Sodium (130-142) mmol/L BUN 30 H (3-23) mg/dL Est GFR (Non-Af Amer) 46 L (60-130) mL/min BUN/Creatinine Ratio 25.0 H (9.0-21.6) Random Glucose 130 H (70-110) mg/dL ALT 13 L (19-67) U/L B-Natriuretic Peptide (5-550) pg/mL 02/01/19 02/02/19 02/02/19 Range/Units 14:15 05:50 06:00 RBC 3.97 L (4.2-5.4) M/mm3 Hgb 12.3 L (12.5-16.0) gm/dL MCV 100.5 H (78-100) fl MCHC 30.8 L (32-36) g/dl Plt Count 140 L (150-450) K/mm3 Immature Gran % (Auto) (0.001-0.429) % Neutrophils % 86.8 H (42-75.0) % Lymphocytes % 4.8 L (20-51) % Monocytes % (0.0-9) % Lymphocytes # 0.22 L (1.5-3.5) k/mm3 PT 33.5 H (9.1-10.7) Seconds INR (Anticoag Therapy) 3.55 H (0.92-1.08) INR Sodium (132-142) mmol/L Plasma Sodium (130-142) mmol/L BUN (3-23) mg/dL Est GFR (Non-Af Amer) (60-130) mL/min BUN/Creatinine Ratio (9.0-21.6) Random Glucose (70-110) mg/dL ALT (19-67) U/L B-Natriuretic Peptide 2019 H (5-550) pg/mL 02/02/19 Range/Units 06:00 RBC (4.2-5.4) M/mm3 Hgb (12.5-16.0) gm/dL MCV (78-100) fl MCHC (32-36) g/dl Plt Count (150-450) K/mm3 Immature Gran % (Auto) (0.001-0.429) % Neutrophils % (42-75.0) % Lymphocytes % (20-51) % Monocytes % (0.0-9) % Lymphocytes # (1.5-3.5) k/mm3 PT (9.1-10.7) Seconds INR (Anticoag Therapy) (0.92-1.08) INR Sodium 143 H (132-142) mmol/L Plasma Sodium 144 H (130-142) mmol/L BUN 25 H (3-23) mg/dL Est GFR (Non-Af Amer) 51 L (60-130) mL/min BUN/Creatinine Ratio 22.7 H (9.0-21.6) Random Glucose 139 H (70-110) mg/dL ALT (19-67) U/L B-Natriuretic Peptide (5-550) pg/mL - EKG/Xray Findings XRAY: chest Interpretation: Reviewed by me - Exam Constitutional: Present: Alert, Oriented x3, Cooperative, Well developed, Well nourished, No distress ENT Exam: Present: normal ENT inspection, hearing grossly normal, pharynx normal, TMs normal Neck: Present: non-tender, full range of motion, supple Breasts: Present: Exam deferred Respiratory: Present: chest non-tender, no respiratory distress, rhonchi, whee zing, expiration (prolonged) Cardiovascular/Chest: Present: normal peripheral pulses, regular rate, rhythm, no chest tenderness, no edema, no gallop, no JVD, no murmur, no rub Abdomen: Present: Normal bowel sounds, soft, nontender, nondistended, no rebound tenderness, no hepatospenomegaly, no masses /Rectal: Present: Exam deferred Extremity: Present: normal range of motion, non-tender, normal inspection, no pedal edema, no calf tenderness, normal capillary refill Skin Exam: Present: normal color, warm/dry, no cyanosis Lymphatic: Present: no adenopathy Neurologic: Present: patient relations liaison II-XII nml as tested, normal cerebellar test, no motor/sensory deficits Appearance: Present: appropriate appearance, appropriate insight, neat Eye contact: Present: cooperative, good eye contact, normal speech Thoughts: Present: normal thought pattern, no apparent hallucination Assessment/Plan Plan Narrative: 1. Continue respiratory therapy treatment 2. Continue antibiotic therapy 3. Anticipate discharge tomorrow after we can arrange for home oxygen - Problems/Diagnosis (1) Dyspnea on minimal exertion Problem: Acute (2) Hypoxemia Problem: Acute (3) Pneumonia Problem: Acute Qualifiers: Pneumonia type: due to unspecified organism Laterality: bilateral Lung location: unspecified part of lung Qualified Code(s): J18.9 - Pneumonia, unspecified organism
[2019-02-02] MEDS ORDERED: guaiFENesin/DEXTROMETHORPHAN 118 ML BTL PO PRN (09:49)
[2019-02-02] MEDS: ALBUTEROL SULFATE/IPRATROPIUM 3 ML NEBU IH SCH ×2 (10:04→18:00)
[2019-02-02] MEDS: BENZONATATE 100 MG CAPSULE PO PRN ×2 (10:38→20:48)
[2019-02-02] MEDS ORDERED: WARFARIN SODIUM 5 MG TABLET PO SCH (17:00)
[2019-02-03] MEDS: ALBUTEROL SULFATE/IPRATROPIUM 3 ML NEBU IH SCH (06:09)
[2019-02-03 06:20] LABS: Prothrombin Time (Patient) 51.9 Seconds (9.1-10.7)
[2019-02-03 06:52] LABS: INR 5.6 INR (0.92-1.08)
[2019-02-03] MEDS: LOSARTAN POTASSIUM 50 MG TABLET PO SCH (08:34)
[2019-02-03] MEDS: FUROSEMIDE 20 MG TABLET PO SCH (08:35)
[2019-02-03] MEDS: metFORMIN HCL 500 MG TABLET PO SCH (08:35)
[2019-02-03] MEDS: GEMFIBROZIL 600 MG TABLET PO SCH (08:35)
[2019-02-03] MEDS: amLODIPine BESYLATE 10 MG TABLET PO SCH (08:36)
--- NOTE | 2019-02-03 09:41 | DS ---
(1) COPD (chronic obstructive pulmonary disease) Problem: Chronic Qualifiers: COPD type: emphysema (2) Pneumonia Problem: Ruled-out Qualifiers: Pneumonia type: due to unspecified organism Laterality: bilateral Lung location: unspecified part of lung Qualified Code(s): J18.9 - Pneumonia, unspecified organism (3) Hypoxemia requiring supplemental oxygen Problem: Chronic (4) CHF (congestive heart failure) Problem: Resolved Qualifiers: Heart failure type: unspecified Heart failure chronicity: acute Qualified Code(s): I50.9 - Heart failure, unspecified (5) Dyspnea on minimal exertion Problem: Acute (6) Bronchitis Problem: Resolved Description of Stay: Sylvia Tavares is an 83-year-old female admitted through ER with hypoxemia secondary to congestive heart failure and acute exacerbation of COPD. Her congestive failure was resolved with 80 of Lasix IV and maintaining with 40 of Lasix p.o. She continues to be hypoxic on room air however. At rest on room air her O2 sat is 85% and walking a short distance she desaturates to 79%. And ambulating her saturations are 85 to 87% on 2 L nasal cannula O2 and at rest she is 91 to 92%. This has been demonstrated daily over the weekend. It was thought that the acute exacerbation of COPD was from a pneumonia or at least a purulent bronchitis. However her cough has been nonproductive, she has been afebrile, and there are no consolidated areas on her chest x-ray. She had a similar episode a year ago in which she was hospitalized. I now believe that the cause is reactive airway disease secondary to the pollens in the air. Also her house is being remodeled by her children right now there is a lot of dust in her home environment that may have contributed to this acute exacerbation. She will need to be discharged on continuous oxygen therapy and nebulizer treatments. Her O2 sat was measured today while walking and she requires 3 L nasal cannula to keep her O2 sat above 90%. Otherwise she has been good spirits in good health and there have been no other complications. Her disposition is improved. She will be discharged to home. Sylvia Tavares is confined to home due to COPD and hypoxemia. The need for usp is education of the disease process and management of oxygen, respiratory therapy equipment, and medications for her COPD and acute bronchitis. The need for physical therapy is for limb strengthening, balance, endurance improvement. The need for home health care skilled services is directly related to the time spent [id number] with the person. Procedures Performed: none Results and Findings: Pending Mircobiology Results 02/01/19 14:31 Blood Blood Culture - Preliminary NO GROWTH 24 HOURS 02/01/19 14:15 Blood Blood Culture - Preliminary NO GROWTH 24 HOURS Lab Pending Results 02/01/19 14:15: WBC 4.2, RBC 4.21, Hgb 12.9, Hct 41.2, MCV 97.9, MCH 30.6, MCHC 31.3 L, RDW 13.9, Plt Count 152, MPV 10.1, Immature Gran % (Auto) 0.00 L, Immature Gran # (Auto) 0.00, Neutrophils % 78.9 H, Lymphocytes % 9.5 L, Monocytes % 10.2 H, Eosinophils % 0.7, Basophils % 0.7, Nucleated RBC % 0.0, Neutrophils # 3.3, Lymphocytes # 0.40 L, Monocytes # 0.4, Eosinophils # 0.0, Absolute Basophils 0.0 02/01/19 14:15: Sodium 136, Plasma Sodium 136, Potassium 4.5, Chloride 99, Carbon Dioxide 28.2, Anion Gap 13.3, BUN 30 H, Creatinine 1.20, Est GFR (Non-Af Amer) 46 L, BUN/Creatinine Ratio 25.0 H, Random Glucose 130 H, Calcium 9.6, Calcium Adj for Albumin 9.7, Total Bilirubin 0.5, AST 22, ALT 13 L, Alkaline Phosphatase 98, Total Protein 7.5, Albumin 3.5 02/01/19 14:15: PT 30.1 H, INR (Anticoag Therapy) 3.18 H 02/01/19 14:15: Lactic Acid, Venous 1.1 02/01/19 14:15: Troponin I 0.041, B-Natriuretic Peptide 2019 H 02/02/19 05:50: PT 33.5 H, INR (Anticoag Therapy) 3.55 H 02/02/19 06:00: WBC 4.6, RBC 3.97 L, Hgb 12.3 L, Hct 39.9, MCV 100.5 H, MCH 31.0, MCHC 30.8 L, RDW 13.8, Plt Count 140 L, MPV 10.6, Immature Gran % (Auto) 0.40, Immature Gran # (Auto) 0.02, Neutrophils % 86.8 H, Lymphocytes % 4.8 L, Monocytes % 7.6, Eosinophils % 0.2, Basophils % 0.2, Nucleated RBC % 0.0, Neutrophils # 4.0, Lymphocytes # 0.22 L, Monocytes # 0.4, Eosinophils # 0.0, Absolute Basophils 0.0 02/02/19 06:00: Sodium 143 H, Plasma Sodium 144 H, Potassium 4.4, Chloride 104, Carbon Dioxide 31.7, Anion Gap 11.7, BUN 25 H, Creatinine 1.10, Est GFR (Non-Af Amer) 51 L, BUN/Creatinine Ratio 22.7 H, Random Glucose 139 H, Calcium 9.0 02/03/19 06:00: PT 51.9 H, INR (Anticoag Therapy) 5.60 H* Discharge Location: Home Disposition: Home Health Service Home Health Agency: [facility] Home Health Condition: Fair Face to Face Encounter completed per [facility] Guidelines: Yes Discharge Activity: Activity as tolerated Discharge Diet: General/regular food Referrals: Thu Lema MD [Primary Care Provider] - Additional Patient Instructions (free text): [facility] new. Please call report and fax orders upon discharge. Nursing and PT. -Please make TCM appointment unless jail discharge. Thank you! Naina @ ext:[phone].Continuous oxygen at 2 L nasal cannula. Nebulizer treatments with budesonide and formoterol and albuterol 3 times a day. She can do albuterol treatments every 4 hours as needed. Wear a mask if the home environment is too robert. Schedule appt. with Dr. Lema in the next 2 weeks. Prescriptions (Any new or edited meds): Albuterol Sulfate [Albuterol Sulfate 2.5 MG/0.5ML] 1 vial INHALATION Q4H PRN #100 vial PRN Reason: Shortness Of Breath Albuterol Sulfate/Ipratropium [Duoneb 2.5-0.5MG/3ML Soln] 3 ml INHALATION BIDRT #100 nebu guaiFENesin [Mucinex] 600 mg PO BID #60 tablet.sa Formoterol Fumarate [Perforomist] 20 mcg INHALATION TID #90 vial.neb Budesonide [Pulmicort Respules] 0.5 mg INHALATION TID #90 vial.[facility] guaiFENesin/DEXTROMETHORPHAN [Robitussin-Dm] 10 ml PO Q4H PRN #180 btl PRN Reason: Cough Benzonatate [Tessalon] 200 mg PO TID PRN #180 cap PRN Reason: Cough Complete Home Medications List: Complete Home Medication List: Gemfibrozil [Lopid] 600 mg PO BID 09/28/14 Cholecalciferol (Vitamin D3) [Vitamin D3] 2,000 unit PO DAILY 04/11/17 warfarin 4 mg tablet See Rx Instructions PO .COMPLEX #30 tab 06/11/18 warfarin 5 mg tablet See Rx Instructions PO .COMPLEX #30 tab 06/11/18 amlodipine 10 mg tablet 10 mg PO DAILY #30 tab 07/04/18 metformin 500 mg tablet 500 mg PO BID #180 tab 09/06/18 Blood Sugar Diagnostic [Contour Test Strip] 0 strip .ROUTE .MEDSUPPLY 10/14/18 Methylcellulose [Fiber] 1,000 mg PO BID 10/14/18 [place]-3 Fatty Acids [[place]-3] 1,000 mg PO DAILY 10/14/18 Losartan Potassium [Cozaar] 100 mg PO DAILY 11/19/18 furosemide 20 mg tablet 20 mg PO DAILY #30 tab 12/09/18 Albuterol Sulfate [Albuterol Sulfate 2.5 MG/0.5ML] 1 vial INHALATION Q4H PRN #100 vial 02/03/19 Albuterol Sulfate/Ipratropium [Duoneb 2.5-0.5MG/3ML Soln] 3 ml INHALATION BIDRT #100 nebu 02/03/19 Benzonatate [Tessalon] 200 mg PO TID PRN #180 cap 02/03/19 Budesonide [Pulmicort Respules] 0.5 mg INHALATION TID #90 vial.neb 02/03/19 Formoterol Fumarate [Perforomist] 20 mcg INHALATION TID #90 vial.neb 02/03/19 guaiFENesin [Mucinex] 600 mg PO BID #60 tablet.sa 02/03/19 guaiFENesin/DEXTROMETHORPHAN [Robitussin-Dm] 10 ml PO Q4H PRN #180 btl 02/03/19
[2019-02-03 14:58] VITALS: BP 119/58
[2019-02-04] MEDS ORDERED: WARFARIN SODIUM 1 TAB TAB PO SCH (17:00)
[2019-02-04] MEDS ORDERED: WARFARIN SODIUM 2.5 MG TABLET PO SCH (17:00)
[2019-02-06] MEDS ORDERED: WARFARIN SODIUM 4 MG TABLET PO SCH (17:00)
== END 2019-02-03 14:45 | disposition home health service (06) ==
LOC: MS 13:52 → ER 13:52
PROVIDERS: ADMIT Family Medicine; ATTEND Family Medicine
CPT/HCPCS: 36415; 71020; 71046; 80048; 80053; 83519; 83605; 83880; 84484; 85025; 85610; 87040; 93005; 94640; 94664; 94760; 99285; G0378

== ENCOUNTER 2019-02-08 17:31 | Observation (INO) ==
[2019-02-08] MEDS ORDERED: ALBUTEROL SULFATE/IPRATROPIUM 3 ML NEBU IH ONE (17:51)
[2019-02-08] MEDS ORDERED: METHYLPREDNISOLONE SOD SUCC/PF 40 MG/ML VIAL IV ONE (17:52)
[2019-02-08] MEDS ORDERED: ACETAMINOPHEN 325 MG TABLET PO ONE (17:54)
[2019-02-08 18:17] LABS: Hemoglobin 12.3 gm/dL (12.5-16.0); Mean Corpuscular Hemoglobin 30.9 pg (27-31); Mean Corpuscular Hgb Conc 31.5 g/dl (32-36); Mean Platelet Volume 10.5 fl (8-12.5); Neutrophil # 11.4 K/mm3 (1.3-6.0); Neutrophil % 93.4 % (42-75.0); Platelet Count 165 K/mm3 (150-450); Red Blood Count 3.98 M/mm3 (4.2-5.4); Red Cell Distribution Width 13.6 % (11.5-14.0); White Blood Count 12.1 K/mm3 (4.0-10.5)
[2019-02-08 18:26] LABS: Prothrombin Time (Patient) 22.6 Seconds (9.1-10.7)
[2019-02-08 18:28] LABS: INR 2.36 INR (0.92-1.08)
[2019-02-08] MEDS ORDERED: LEVOFLOXACIN IN DEXTROSE 5 % 500 MG/100 ML BAG IV SCH (18:30)
[2019-02-08 18:41] LABS: Albumin * 3.1 gm/dl (3.4-5.0); Anion Gap 7.3 mmol/L (6.8-13.8); BUN/Creatinine Ratio 21.6 (9.0-21.6); Bilirubin, Total 0.7 mg/dL (0.0-1.1); Calcium * 9.6 mg/dL (7.9-10.9); Carbon Dioxide 36.7 mmol/L (24-32.6); Total Protein 7.1 gm/dL (6.2-8.2); Troponin I 0.039 ng/mL (0.00-0.10)
[2019-02-08 19:01] LABS: Urine Appearance Clear (CLEAR); Urine Bilirubin Negative (NEGATIVE); Urine Color Yellow; Urine Ketone Negative (NEGATIVE)
[2019-02-08] MEDS ORDERED: FUROSEMIDE 10 MG/ML VIAL IV ONE (19:01)
[2019-02-08 19:02] LABS: Urine Bacteria None Seen; Urine Blood 5 /ul (NEGATIVE); Urine Nitrite Negative (NEGATIVE); Urine Protein Negative (NEGATIVE); Urine RBC 0-5 /hpf (0-5); Urine Urobilinogen Normal (NORMAL); Urine WBC 0-5 /hpf (0-5)
--- NOTE | 2019-02-08 19:29 | ERNOTE ---
Dyspnea - Date Date of Service: 02/08/19 - General Presenting Symptoms: shortness of breath, other - fever Time Seen by Provider: 02/08/19 17:41 Source: patient Exam Limitations: no limitations - Immun/Allergies/Home Medications Immunizations: IMMUNIZATION HX Immunizations Up to Date Yes History of Influenza Vaccine No Hx Pneumococcal Vaccination No Allergies/Adverse Reactions: Allergies Sulfa (Sulfonamide Antibiotics) Allergy (Verified 02/08/19 17:43) Home Medications: HOME MEDICATIONS Gemfibrozil [Lopid] 600 mg PO BID 09/28/14 [Last Taken 10/13/18] Cholecalciferol (Vitamin D3) [Vitamin D3] 2,000 unit PO DAILY 04/11/17 [Last Taken 10/13/18] warfarin 4 mg tablet See Rx Instructions PO .COMPLEX #30 tab 06/11/18 [Last Taken 10/13/18] warfarin 5 mg tablet See Rx Instructions PO .COMPLEX #30 tab 06/11/18 [Last Taken 10/13/18] amlodipine 10 mg tablet 10 mg PO DAILY #30 tab 07/04/18 [Last Taken 10/13/18] metformin 500 mg tablet 500 mg PO BID #180 tab 09/06/18 [Last Taken 10/13/18] Blood Sugar Diagnostic [Contour Test Strip] 0 strip .ROUTE .MEDSUPPLY 10/14/18 [Last Taken Unknown] Methylcellulose [Fiber] 1,000 mg PO BID 10/14/18 [Last Taken 10/13/18] [place]-3 Fatty Acids [[place]-3] 1,000 mg PO DAILY 10/14/18 [Last Taken 10/13/18] Losartan Potassium [Cozaar] 100 mg PO DAILY 11/19/18 [Last Taken Unknown] furosemide 20 mg tablet 20 mg PO DAILY #30 tab 12/09/18 [Last Taken Unknown] Albuterol Sulfate [Albuterol Sulfate 2.5 MG/0.5ML] 1 vial INHALATION Q4H PRN #100 vial 02/03/19 [Last Taken Unknown] Albuterol Sulfate/Ipratropium [Duoneb 2.5-0.5MG/3ML Soln] 3 ml INHALATION BIDRT #100 nebu 02/03/19 [Last Taken Unknown] Benzonatate [Tessalon] 200 mg PO TID PRN #180 cap 02/03/19 [Last Taken Unknown] Budesonide [Pulmicort Respules] 0.5 mg INHALATION TID #90 vial.neb 02/03/19 [Last Taken Unknown] Formoterol Fumarate [Perforomist] 20 mcg INHALATION TID #90 vial.neb 02/03/19 [Last Taken Unknown] guaiFENesin [Mucinex] 600 mg PO BID #60 tablet.sa 02/03/19 [Last Taken Unknown] guaiFENesin/DEXTROMETHORPHAN [Robitussin-Dm] 10 ml PO Q4H PRN #180 btl 02/03/19 [Last Taken Unknown] - History of Present Illness Narrative: Patient has been at home with oxygen since hospital discharge. She was not on oxygen before coming into the hospital last visit. She was feeling beter for a few days at home, then started to feel worse. Today not feeling well at all. Fever, increaed SOB and exertional SOB. Fatigue and generalized weakness. She lives at home alone. She is quite SOB upon arrival here. Severity: moderate Treatment [employer]: oxygen Initiating event: Reports: unknown Frequency of episodes: Reports: other - this stated over the last 24 hours Modifying Factors - (Improves): Reports: nothing Modifying Factors (Worsens): Reports: activity Associated Symptoms-Dyspnea: Reports: fever/chills, cough, wheezing, ankle/leg swelling, weakness. Denies: chest pain/discomfort Prior Treatment: Reports: recently seen, recently hospitalized. Denies: currently on antibiotics Review of Systems - Review of Systems Constitutional: Present: fever EYE: Present: other - red eyes bilaterally ENT: Absent: sore throat Respiratory: Present: shortness of breath, cough Cardiology: Absent: chest pain Gastrointestinal/Abdominal: Absent: abdominal pain Genitourinary: Absent: dysuria Musculoskeletal: Present: other - leg swelling Skin: Absent: rash Neurological: Present: other - generalized weakness All Other Systems: All systems neg except as marked Medical History (Updated 02/08/19 @ 19:19 by Jayy Okeefe MD) Refused influenza vaccine (Acute) Onset Date: ~06/26/18 Congestive heart failure (CHF) Anemia, aplastic Onset Date: Unknown Diabetes mellitus type 2 in nonobese Onset Date: Unknown Hyperlipidemia Onset Date: Unknown Hypertension Onset Date: Unknown Hypothyroidism Onset Date: Unknown Vitamin D deficiency Onset Date: Unknown Surgical History: Surgical History (Updated 10/15/18 @ 11:36 by Irish Marquez MD) History of aortic valve replacement Onset Date: ~1987, History of cholecystectomy Onset Date: Unknown History of hysterectomy Onset Date: ~1964 Family History: Family History (Updated 03/20/18 @ 07:37 by Tashia Matthews CMA) Mother Diabetes Hypertension CAD (coronary artery disease) Father , 78 Broken hip Social History: Preferred Language Romansh Do you have any mormon or No cultural preference? Smoking Status Never smoker Alcohol Use none Drug Use none (Last Updated 10/23/18 @ 12:41 by Thu Lema MD) No Social History Section defined Physical Exam - Physical Exam General Appearance: Present: alert, mild distress, other - patient does not appear to feel well at all Head Exam: Present: normal inspection, no evidence of injury Eye Exam: Normal inspection: bilateral, PERRL: bilateral Ears, Nose, Throat: Present: normal ENT inspection. Absent: dry mucous membranes Neck: Present: normal inspection Respiratory: Present: respiratory distress, wheezing, other - teachypnea, wheezing Cardiovascular/Chest: Present: regular rate, rhythm, normal peripheral pulses Gastrointestinal/Abdominal: Present: normal bowel sounds, nontender, n ondistended, soft Back Exam: Absent: CVA tenderness (R), CVA tenderness (L) Extremity Exam: Present: other - trace edema Neurological Exam: Present: alert, no motor/sensory deficits, other - generalized weakness noted Skin Exam: Present: normal color, warm/dry Progress - Results and Orders Patient's Lab Results:: I have reviewed the patient's lab results. - Vital Signs Patient's Vital Signs:: I have reviewed the patient's vital signs. Vital Signs: Vital Signs 02/08/19 17:32 02/08/19 17:44 02/08/19 17:58 Temperature 38.8 C H Pulse Rate 97 98 Respiratory Rate 24 H 20 Blood Pressure 142/61 O2 Sat by Pulse Oximetry 84 L 92 L 93 02/08/19 18:47 02/08/19 19:10 Temperature 38.2 C H Pulse Rate 93 88 Respiratory Rate 22 H Blood Pressure 125/65 131/64 O2 Sat by Pulse Oximetry 91 L - EKG EKG #1 EKG: NSR EKG read: Interp. by me EKG Comments: NSR rate 97. RBBB LAFB, Minimal change from prior EKG.No STEMI noted - X-Ray X-Ray #1 X-Ray: chest Interpretation: Interp. by me X-ray Comments: No real time radiology reads. I feel there is increased retrocardiac density. This is c/w pneumonia. - Progress/Reassessment Chief Complaint: Dyspnea Progress Note-Subjective: 02/08/19 19:26 Patient given IV solumedrol for what sounded like a COPD exacerbation and duoneb. This helped her wheezing freatly. Tylenol for fever and when her fever came down she was feeling much improved. Her distress and tachycardia improved. IV lasix for the elevated BNP ans leg swelling. IV ABx for what I feel to be a pneumonia. She did not feel well enough to go home, D/W Dr Sanderson and will be admitted observation. Departure Clinical Impression: Fever, SOB (shortness of breath), Pneumonia, COPD exacerbation, CHF (congestive heart failure) - Departure Disposition: Still a patient Condition: Stable Referrals: Thu Lema MD [Primary Care Provider] -
[2019-02-08] MEDS ORDERED: ALBUTEROL SULFATE 2.5 MG/0.5 ML VIAL.NEB IH PRN (21:38)
[2019-02-08] MEDS ORDERED: BENZONATATE 100 MG CAPSULE PO PRN (21:38)
[2019-02-09 07:49] LABS: INR 3.26 INR (0.92-1.08); Prothrombin Time (Patient) 30.8 Seconds (9.1-10.7)
[2019-02-09] MEDS: FORMOTEROL FUMARATE 20 MCG/2 ML VIAL IH SCH ×2 (08:56→12:51)
[2019-02-09] MEDS ORDERED: amLODIPine BESYLATE 10 MG TABLET PO SCH (09:00)
[2019-02-09] MEDS ORDERED: metFORMIN HCL 500 MG TABLET PO SCH (09:00)
[2019-02-09] MEDS ORDERED: LOSARTAN POTASSIUM 50 MG TABLET PO SCH (09:00)
[2019-02-09] MEDS ORDERED: FUROSEMIDE 20 MG TABLET PO SCH (09:00)
[2019-02-09] MEDS ORDERED: GEMFIBROZIL 600 MG TABLET PO SCH (09:00)
[2019-02-09] MEDS: BUDESONIDE 0.5 MG/2 ML VIAL.NEB IH SCH ×2 (09:08→12:50)
--- NOTE | 2019-02-09 12:19 | HP ---
Chief Complaint - Chief Complaint Date of Service: 02/08/19 Time of Service: 22:06 Chief Complaint: Cough, shortness of breath, fatigue History of Present Illness: 83-year-old female presented to the ER after developing worsening shor tness of breath, cough, fever while home. Patient recently seen in the ER and evaluated and diagnosed with COPD exacerbation roughly 1 week prior and was sent home on inhalers. Patient has no history of COPD, has never been a smoker. She had no lung issues prior to her recent illness a few weeks ago, COPD unlikely. Patient returned to the ER today with the above symptoms, chest x-ray showed in filtrate in the right lower lobe. She was started on Levaquin. She was transferred to the floor where she was monitored. She currently is on 3 L of oxygen which she has been on since she was discharged initially with her first ER visit, she has been maintaining her sats with 3 L. Her temperature came down with Tylenol. The rest of her vital signs are stable. This evening patient endorses productive cough, shortness of breath, fever/chills, and overall weakness. She also has minimal swelling in her lower extremities and has a history of CHF, BMP today elevated at 2636. The rest of her came panel was within normal limits. She did have an elevated white count 12.1 with a left shift of 93.4%. Negative for influenza, negative for mycoplasma pneumonia. Medical History (Updated 02/08/19 @ 19:19 by Jayy Okeefe MD) Refused influenza vaccine (Acute) Onset Date: ~06/26/18 Congestive heart failure (CHF) Anemia, aplastic Onset Date: Unknown Diabetes mellitus type 2 in nonobese Onset Date: Unknown Hyperlipidemia Onset Date: Unknown Hypertension Onset Date: Unknown Hypothyroidism Onset Date: Unknown Vitamin D deficiency Onset Date: Unknown Surgical History: Surgical History (Updated 10/15/18 @ 11:36 by Irish Marquez MD) History of aortic valve replacement Onset Date: ~1987, History of cholecystectomy Onset Date: Unknown History of hysterectomy Onset Date: ~1964 Family History: Family History (Updated 03/20/18 @ 07:37 by Tashia Matthews CMA) Mother Diabetes Hypertension CAD (coronary artery disease) Father , 78 Broken hip Social History: Patient Lives/Resources Home Utilized Occupation tired Preferred Language Portuguese Do you have any mormonism or Yes: faith cultural preference? Smoking Status Never smoker Have you smoked in the past 12 No months Do you dip or chew tobacco No Alcohol Use none Drug Use none (Last Updated 10/23/18 @ 12:41 by Thu Lema MD) No Social History Section defined Review Of Systems (GEN) - Review of Systems Generalized/Overall Review: Present: Weakness, Chills, Fever, Fatigue EENTM: Present: Nose Congestion. Absent: Ear Pain, Throat Pain, Throat Swelling, Mouth Pain Respiratory: Present: Cough, Shortness of Breath, Wheezing Cardiac: Present: Edema. Absent: Chest Pain, Palpitations Abdominal: Absent: Nausea, Vomiting, Abdominal Pain Genitourinary: Present: No Symptoms Reported Musculoskeletal: Present: No Symptoms Reported Neurological: Present: No Symptoms Reported Skin: Present: No Symptoms Reported Immunizations: IMMUNIZATION HX Immunizations Up to Date Yes History of Influenza Vaccine No Hx Pneumococcal Vaccination No Allergies/Adverse Reactions: Allergies Allergy/AdvReac Type Severity Reaction Status Date / Time Sulfa (Sulfonamide Allergy Unknown Other Verified 02/08/19 20:36 Antibiotics) Home Medications: HOME MEDICATIONS Gemfibrozil [Lopid] 600 mg PO BID 09/28/14 [Last Taken 02/08/19 08:00] Cholecalciferol (Vitamin D3) [Vitamin D3] 2,000 unit PO DAILY 04/11/17 [Last Taken 02/08/19] warfarin 5 mg tablet See Rx Instructions PO .COMPLEX #30 tab 06/11/18 [Last Taken 02/08/19] amlodipine 10 mg tablet 10 mg PO DAILY #30 tab 07/04/18 [Last Taken 02/08/19] metformin 500 mg tablet 500 mg PO BID #180 tab 09/06/18 [Last Taken 02/08/19] Blood Sugar Diagnostic [Contour Test Strip] 0 strip .ROUTE .MEDSUPPLY 10/14/18 [Last Taken Unknown] Methylcellulose [Fiber] 1,000 mg PO DAILY 10/14/18 [Last Taken 02/08/19] [place]-3 Fatty Acids [[place]-3] 1,000 mg PO DAILY 10/14/18 [Last Taken 02/08/19] Losartan Potassium [Cozaar] 100 mg PO DAILY 11/19/18 [Last Taken 02/08/19] furosemide 20 mg tablet 20 mg PO DAILY #30 tab 12/09/18 [Last Taken 02/08/19] Albuterol Sulfate [Albuterol Sulfate 2.5 MG/0.5ML] 1 vial INHALATION Q4H PRN #100 vial 02/03/19 [Last Taken Unknown] Albuterol Sulfate/Ipratropium [Duoneb 2.5-0.5MG/3ML Soln] 3 ml INHALATION BIDRT #100 nebu 02/03/19 [Last Taken Unknown] Benzonatate [Tessalon] 200 mg PO TID PRN #180 cap 02/03/19 [Last Taken 02/08/19] Budesonide [Pulmicort Respules] 0.5 mg INHALATION TID #90 vial.neb 02/03/19 [Last Taken Unknown] Formoterol Fumarate [Perforomist] 20 mcg INHALATION TID #90 vial.neb 02/03/19 [Last Taken Unknown] guaiFENesin [Mucinex] 600 mg PO BID #60 tablet.sa 02/03/19 [Last Taken 02/08/19] guaiFENesin/DEXTROMETHORPHAN [Robitussin-Dm] 10 ml PO Q4H PRN #180 btl 02/03/19 [Last Taken 02/08/19 15:00] Warfarin Sodium 2.5 mg PO TU 02/08/19 [Last Taken 02/04/19] Exam - Exam Vital Signs: Vital Signs - Last Taken Temp 36.8 C 02/09/19 06:42 Pulse 79 02/09/19 09:09 Resp 18 02/09/19 06:42 BP 114/53 02/09/19 09:09 Pulse Ox 97 02/09/19 06:42 Constitutional: Present: Alert, Oriented x3, Elderly, Thin and frail ENT Exam: Present: pharynx normal, other - Postnasal drip. Absent: nasal congestion, nasal drainage Eye Exam: bilateral eye: normal inspection Neck: Present: non-tender, supple. Absent: lymphadenopathy (R), lymphadenopathy (L) Respiratory: Present: no respiratory distress, crackles - Right lower lobe, rhonchi - Bilateral lower lobes. Absent: stridor, wheezing Cardiovascular/Chest: Present: normal peripheral pulses, regular rate, rhythm, no murmur, edema - 1+, nonpitting bilateral lower extremities just above her ankles Abdomen: Present: Normal bowel sounds, soft, nontender Skin Exam: Present: normal color, warm/dry Appearance: Present: appropriate appearance, appropriate insight, neat Thoughts: Present: normal thought pattern, normal mood /affect Diagnostic Studies: Abnormal Lab Results 02/08/19 02/08/19 02/08/19 Range/Units 18:00 18:00 18:00 WBC 12.1 H (4.0-10.5) K/mm3 RBC 3.98 L (4.2-5.4) M/mm3 Hgb 12.3 L (12.5-16.0) gm/dL MCHC 31.5 L (32-36) g/dl Immature Gran % (Auto) 0.50 H (0.001-0.429) % Immature Gran # (Auto) 0.06 H (0.000-0.0310) K/mm3 Neutrophils % 93.4 H (42-75.0) % Lymphocytes % 1.7 L (20-51) % Neutrophils # 11.4 H (1.3-6.0) K/mm3 Lymphocytes # 0.21 L (1.5-3.5) k/mm3 PT 22.6 H (9.1-10.7) Seconds INR (Anticoag Therapy) 2.36 H (0.92-1.08) INR Plasma Sodium 143 H (130-142) mmol/L Carbon Dioxide 36.7 H (24-32.6) mmol/L Random Glucose 185 H (70-110) mg/dL B-Natriuretic Peptide 2636 H (5-550) pg/mL Albumin 3.1 L (3.4-5.0) gm/dl Urine Blood (NEGATIVE) /ul 02/08/19 02/09/19 Range/Units 18:33 07:26 WBC (4.0-10.5) K/mm3 RBC (4.2-5.4) M/mm3 Hgb (12.5-16.0) gm/dL MCHC (32-36) g/dl Immature Gran % (Auto) (0.001-0.429) % Immature Gran # (Auto) (0.000-0.0310) K/mm3 Neutrophils % (42-75.0) % Lymphocytes % (20-51) % Neutrophils # (1.3-6.0) K/mm3 Lymphocytes # (1.5-3.5) k/mm3 PT 30.8 H (9.1-10.7) Seconds INR (Anticoag Therapy) 3.26 H (0.92-1.08) INR Plasma Sodium (130-142) mmol/L Carbon Dioxide (24-32.6) mmol/L Random Glucose (70-110) mg/dL B-Natriuretic Peptide (5-550) pg/mL Albumin (3.4-5.0) gm/dl Urine Blood 5 H (NEGATIVE) /ul Laboratory Results WBC 12.1 K/mm3 (4.0-10.5) H 02/08/19 18:00 RBC 3.98 M/mm3 (4.2-5.4) L 02/08/19 18:00 Hgb 12.3 gm/dL (12.5-16.0) L 02/08/19 18:00 Hct 39.0 % (37.0-47.0) 02/08/19 18:00 MCV 98.0 fl (78-100) 02/08/19 18:00 MCH 30.9 pg (27-31) 02/08/19 18:00 MCHC 31.5 g/dl (32-36) L 02/08/19 18:00 RDW 13.6 % (11.5-14.0) 02/08/19 18:00 Plt Count 165 K/mm3 (150-450) 02/08/19 18:00 MPV 10.5 fl (8-12.5) 02/08/19 18:00 Immature Gran % (Auto) 0.50 % (0.001-0.429) H 02/08/19 18:00 Immature Gran # (Auto) 0.06 K/mm3 (0.000-0.0310) H 02/08/19 18:00 93.4 % (42-75.0) H 02/08/19 18:00 1.7 % (20-51) L 02/08/19 18:00 4.0 % (0.0-9) 02/08/19 18:00 0.2 % (0.0-3.0) 02/08/19 18:00 0.2 % (0.0-1.0) 02/08/19 18:00 Nucleated RBC % 0.0 k/mm3 (0-1) 02/08/19 18:00 11.4 K/mm3 (1.3-6.0) H 02/08/19 18:00 0.21 k/mm3 (1.5-3.5) L 02/08/19 18:00 0.5 k/mm3 (0.0-1.0) 02/08/19 18:00 0.0 k/mm3 (0.0-0.7) 02/08/19 18:00 Absolute Basophils 0.0 k/mm3 (0.0-0.1) 02/08/19 18:00 PT 30.8 Seconds (9.1-10.7) H 02/09/19 07:26 INR (Anticoag Therapy) 3.26 INR (0.92-1.08) H 02/09/19 07:26 Sodium 142 mmol/L (132-142) 02/08/19 18:00 143 mmol/L (130-142) H 02/08/19 18:00 Potassium 4.0 mmol/L (3.4-4.6) 02/08/19 18:00 Chloride 102 mmol/L (97-106) 02/08/19 18:00 Carbon Dioxide 36.7 mmol/L (24-32.6) H 02/08/19 18:00 7.3 mmol/L (6.8-13.8) 02/08/19 18:00 BUN 19 mg/dL (3-23) 02/08/19 18:00 0.88 mg/dL (0.4-1.4) 02/08/19 18:00 Est GFR (Non-Af Amer) 66 mL/min (60-130) D 02/08/19 18:00 21.6 (9.0-21.6) 02/08/19 18:00 185 mg/dL (70-110) H 02/08/19 18:00 0.9 mmol/L (0.4-2.0) 02/08/19 18:00 Calcium 9.6 mg/dL (7.9-10.9) 02/08/19 18:00 Calcium Adj for Albumin 10.0 mg/dL (8.4-10.2) 02/08/19 18:00 0.7 mg/dL (0.0-1.1) 02/08/19 18:00 AST 27 U/L (0-48) 02/08/19 18:00 ALT 19 U/L (19-67) 02/08/19 18:00 88 U/L (50-170) 02/08/19 18:00 0.039 ng/mL (0.00-0.10) 02/08/19 18:00 B-Natriuretic Peptide 2636 pg/mL (5-550) H 02/08/19 18:00 7.1 gm/dL (6.2-8.2) 02/08/19 18:00 3.1 gm/dl (3.4-5.0) L 02/08/19 18:00 Yellow 02/08/19 18:33 Clear (CLEAR) 02/08/19 18:33 6.0 pH (5.0-7.0) 02/08/19 18:33 Ur Specific [place] 1.010 SP.GR. (1.005-1.010) 02/08/19 18:33 Negative mg/dL (NEGATIVE) 02/08/19 18:33 Negative mg/dL (NEGATIVE) 02/08/19 18:33 Negative mg/dL (NEGATIVE) 02/08/19 18:33 5 /ul (NEGATIVE) H 02/08/19 18:33 Negative (NEGATIVE) 02/08/19 18:33 Negative mg/dl (NEGATIVE) 02/08/19 18:33 Normal EU/dl (NORMAL) 02/08/19 18:33 Ur Leukocyte Esterase Negative /ul (NEGATIVE) 02/08/19 18:33 0-5 /hpf (0-5) 02/08/19 18:33 0-5 /hpf (0-5) 02/08/19 18:33 Ur Epithelial Cells 0-5 /hpf (0-5) 02/08/19 18:33 None seen (NONE) 02/08/19 18:33 No culture indicated 02/08/19 18:33 Influenza Type A Ag Negative (NEGATIVE) 02/08/19 18:00 Influenza Type B Ag Negative (NEGATIVE) 02/08/19 18:00 Mycoplasma pneumon IgM Non reactive (NonReactive) 02/08/19 18:00 Assessment/Plan - Narrative Narrative: Patient placed in observation for pneumonia, she was started on Levaquin in the ER, fever reduced with Tylenol. Still on 3 L which she has been on since going home 1 week prior, maintaining O2 saturations 95% above. Rest of her vital signs are stable at this time. We will continue Levaquin, monitor INR. Patient takes Coumadin for history of aortic valve replacementwe will hold her Coumadin at this time as it is going to increase due to cross-reactivity with the Levaquin. Will monitor INR in the morning. Blood cultures pending. Patient received DuoNeb treatment in the ER, states that she is feeling much better since arriving to the floor. Her shortness of breath may also be caused by exacerbation of her CHF, will fluid restrict her and continue her diuresis. Unsure as to what kind of CHF she has or when her last echocardiogram was. If she clinically improves tomorrow then will allow her to follow-up with her dispute specialist Dr. Diallo, who can order an echo or change her CHF treatment plan if needed. Continue patient's chronic medicines otherwise. She will be started on a consistent carb diet. No DVT prophylaxis needed due to being therapeutic on Coumadin. Nurses will call with any questions or concerns. - Assessment/Plan (1) Pneumonia Problem: Acute Qualifiers: (2) CHF (congestive heart failure) Problem: Chronic Qualifiers: (3) HTN (hypertension) Problem: Chronic Qualifiers: (4) Diabetes Problem: Chronic (5) Hypoxemia requiring supplemental oxygen Problem: Acute
--- NOTE | 2019-02-09 12:26 | DS ---
(1) Pneumonia Problem: Acute Qualifiers: (2) CHF (congestive heart failure) Problem: Chronic Qualifiers: (3) HTN (hypertension) Problem: Chronic Qualifiers: (4) Diabetes Problem: Chronic (5) Hypoxemia requiring supplemental oxygen Problem: Acute Description of Stay: 83-year-old female brought in for productive cough, fever, fatigue. Found to have a right lower lobe infiltrate on x-ray and started on Levaquin. She did receive a breathing treatment x2 which made her feel better and currently is in good spirits is and is desiring to go home. Will continue Levaquin for another week, she will need to have her INR checked daily with her home health nurse. We will hold her Coumadin at this time and it can be restarted once it drops below 2.5. Also recommend continuing fluid restrictions to 1800 cc while recovering from this shortness of breath with hypoxia as I feel like this is a mixed picture and she has been affected by both the pneumonia and also some fluid overload from her CHF. She has an appointment to see Dr. Lema later this week and Dr. Diallo her device engineer in a couple of weeks, I advised that she keep both appointments. She was given a diagnosis of COPD a week ago in the ER which clinically does not fit as she has not had any lung issues up until she got sick in the last couple weeks and she is a non-smoker. Recommend pulmonary function test if she continues to require oxygen therapy to maintain sats after her pneumonia and CHF have improved/resolved. The rest of her vital signs have been stable. Pertinent labs during the stay included to have elevated white count at 12.1 with a left shift of 93.4%, INR discharge was 3.26, BNP of 2636, negative influenza and mycoplasma. Advised her to continue with some of her breathing treatments at home until she completes antibiotics and her pneumonia resolves, then this can be revisited with Dr. Lema at her follow-up appointment. Patient and daughter are in agreement with treatment plan, she was discharged home in stable condition on a heart healthy diet, she knows to return to the ER if she develops worsening symptoms. Procedures Performed: none Results and Findings: Lab Pending Results 02/08/19 18:00: WBC 12.1 H, RBC 3.98 L, Hgb 12.3 L, Hct 39.0, MCV 98.0, MCH 30.9, MCHC 31.5 L, RDW 13.6, Plt Count 165, MPV 10.5, Immature Gran % (Auto) 0.50 H, Immature Gran # (Auto) 0.06 H, Neutrophils % 93.4 H, Lymphocytes % 1.7 L, Monocytes % 4.0, Eosinophils % 0.2, Basophils % 0.2, Nucleated RBC % 0.0, Neutrophils # 11.4 H, Lymphocytes # 0.21 L, Monocytes # 0.5, Eosinophils # 0.0, Absolute Basophils 0.0 02/08/19 18:00: PT 22.6 H, INR (Anticoag Therapy) 2.36 H 02/08/19 18:00: Sodium 142, Plasma Sodium 143 H, Potassium 4.0, Chloride 102, Carbon Dioxide 36.7 H, Anion Gap 7.3, BUN 19, Creatinine 0.88, Est GFR (Non-Af Amer) 66 D, BUN/Creatinine Ratio 21.6, Random Glucose 185 H, Calcium 9.6, Calcium Adj for Albumin 10.0, Total Bilirubin 0.7, AST 27, ALT 19, Alkaline Phosphatase 88, Troponin I 0.039, B-Natriuretic Peptide 2636 H, Total Protein 7.1, Albumin 3.1 L 02/08/19 18:00: Lactic Acid, Venous 0.9 02/08/19 18:00: Influenza Type A Ag Negative, Influenza Type B Ag Negative 02/08/19 18:00: Mycoplasma pneumon IgM Non reactive 02/08/19 18:33: Urine Color Yellow, Urine Appearance Clear, Urine pH 6.0, Ur Specific [place] 1.010, Urine Protein Negative, Urine Glucose (UA) Negative, Urine Ketones Negative, Urine Blood 5 H, Urine Nitrate Negative, Urine Bilirubin Negative, Urine Urobilinogen Normal, Ur Leukocyte Esterase Negative, Urine RBC 0-5, Urine WBC 0-5, Ur Epithelial Cells 0-5, Urine Bacteria None seen, Urine Culture Comments No culture indicated 02/09/19 07:26: PT 30.8 H, INR (Anticoag Therapy) 3.26 H Discharge Location: Home [facility]position: [facility] Agency[facility] Home Health Condition: Stable Discharge Activity: Activity as tolerated - Patient will need to have INR checked daily while on Levaquin Discharge Diet: Low fat/chol Referrals: Thu Lema MD [Primary Care Provider] - Additional Patient Instructions (free text): Fluid restrictions 1800 cc of free fluid. Discussed this with patient and daughter who are in agreement. Prescriptions (Any new or edited meds): Levofloxacin [Levaquin] 500 mg PO DAILY #9 tab Complete Home Medications List: Complete Home Medication List: Gemfibrozil [Lopid] 600 mg PO BID 09/28/14 Cholecalciferol (Vitamin D3) [Vitamin D3] 2,000 unit PO DAILY 04/11/17 warfarin 5 mg tablet See Rx Instructions PO .COMPLEX #30 tab 06/11/18 amlodipine 10 mg tablet 10 mg PO DAILY #30 tab 07/04/18 metformin 500 mg tablet 500 mg PO BID #180 tab 09/06/18 Blood Sugar Diagnostic [Contour Test Strip] 0 strip .ROUTE .MEDSUPPLY 10/14/18 Methylcellulose [Fiber] 1,000 mg PO DAILY 10/14/18 [place]-3 Fatty Acids [[place]-3] 1,000 mg PO DAILY 10/14/18 Losartan Potassium [Cozaar] 100 mg PO DAILY 11/19/18 furosemide 20 mg tablet 20 mg PO DAILY #30 tab 12/09/18 Albuterol Sulfate [Albuterol Sulfate 2.5 MG/0.5ML] 1 vial INHALATION Q4H PRN #100 vial 02/03/19 Albuterol Sulfate/Ipratropium [Duoneb 2.5-0.5MG/3ML Soln] 3 ml INHALATION BIDRT #100 nebu 02/03/19 Benzonatate [Tessalon] 200 mg PO TID PRN #180 cap 02/03/19 Budesonide [Pulmicort Respules] 0.5 mg INHALATION TID #90 vial.neb 02/03/19 Formoterol Fumarate [Perforomist] 20 mcg INHALATION TID #90 vial.neb 02/03/19 guaiFENesin [Mucinex] 600 mg PO BID #60 tablet.sa 02/03/19 guaiFENesin/DEXTROMETHORPHAN [Robitussin-Dm] 10 ml PO Q4H PRN #180 btl 02/03/19 Warfarin Sodium 2.5 mg PO TU 02/08/19 Levofloxacin [Levaquin] 500 mg PO DAILY #9 tab 02/09/19
[2019-02-09 13:01] VITALS: BP 96/68
[2019-02-09] MEDS ORDERED: WARFARIN SODIUM 5 MG TABLET PO SCH (17:00)
[2019-02-11] MEDS ORDERED: WARFARIN SODIUM 2.5 MG TABLET PO SCH (17:00)
== END 2019-02-09 13:30 | disposition home health service (06) ==
LOC: ER 17:31 → MS 17:31
PROVIDERS: ADMIT Family Medicine; ATTEND Family Medicine
CPT/HCPCS: 36415; 71020; 71046; 80053; 81001; 83519; 83605; 83880; 84484; 85025; 85610; 86738; 87040; 87400; 87449; 93005; 94640; 94664; 96365; 96375; 99285; G0378

== ENCOUNTER 2019-09-29 11:40 | Observation (INO) ==
[2019-09-29 12:18] LABS: Hematocrit 26.9 % (37.0-47.0); Mean Cell Volume 96.4 fl (78-100); Neutrophil # 4.5 K/mm3 (1.3-6.0); Platelet Count 202 K/mm3 (150-450); Red Blood Count 2.79 M/mm3 (4.2-5.4); Red Cell Distribution Width 14.7 % (11.5-14.0); White Blood Count 4.9 K/mm3 (4.0-10.5)
[2019-09-29 12:20] LABS: Hemoglobin 7.8 gm/dL (12.5-16.0)
--- NOTE | 2019-09-29 12:24 | ERNOTE ---
Dyspnea - General Time Seen by Provider: 09/29/19 12:06 Source: patient Exam Limitations: no limitations - Immun/Allergies/Home Medications Immunizations: IMMUNIZATION HX Immunizations Up to Date Yes History of Influenza Vaccine Yes Hx Pneumococcal Vaccination Yes Allergies/Adverse Reactions: Allergies Sulfa (Sulfonamide Antibiotics) Allergy (Unknown, Verified 09/29/19 14:27) Other Not sure of what the reaction was, patient state it caused her get anemia. amlodipine Adverse Reaction (Verified 09/29/19 14:27) Other cough Home Medications: HOME MEDICATIONS Gemfibrozil [Lopid] 600 mg PO BID 09/28/14 [Last Taken 02/08/19 08:00] Cholecalciferol (Vitamin D3) [Vitamin D3] 2,000 unit PO DAILY 04/11/17 [Last Taken 02/08/19] Blood Sugar Diagnostic [Contour Test Strip] 0 strip .ROUTE .MEDSUPPLY 10/14/18 [Last Taken Unknown] Methylcellulose [Fiber] 1,000 mg PO DAILY 10/14/18 [Last Taken 02/08/19] [place]-3 Fatty Acids [[place]-3] 1,000 mg PO DAILY 10/14/18 [Last Taken 02/08/19] Albuterol Sulfate [Albuterol Sulfate 2.5 MG/0.5ML] 1 vial INHALATION Q4H PRN #100 vial 02/03/19 [Last Taken Unknown] Albuterol Sulfate/Ipratropium [Duoneb 2.5-0.5MG/3ML Soln] 3 ml INHALATION BIDRT #100 nebu 02/03/19 [Last Taken Unknown] Budesonide [Pulmicort Respules] 0.5 mg INHALATION TID #90 vial.neb 02/03/19 [Last Taken Unknown] Formoterol Fumarate [Perforomist] 20 mcg INHALATION TID #90 vial.neb 02/03/19 [Last Taken Unknown] Warfarin Sodium 2.5 mg PO MO 02/08/19 [Last Taken 02/04/19] losartan 25 mg tablet 25 mg PO DAILY 03/18/19 [Last Taken Unknown] Albuterol Sulfate [Ventolin HFA] 1 puff INHALATION QID PRN 07/15/19 [Last Taken Unknown] Furosemide 40 mg PO DAILY 09/29/19 [Last Taken Unknown] Warfarin Sodium 5 mg PO SUTUWETHFRSA 09/29/19 [Last Taken Unknown] metFORMIN HCL [Metformin HCl] 500 mg PO BID 09/29/19 [Last Taken Unknown] - History of Present Illness Narrative: Patient has a history of CHF and pulmonary fibrosis. Two months ago she started with pulmonary rehab three times a week. Since last week (five days ago) she has not been able to tolerate it due to increased shortness of breath, denies any significant cough, no chest pain, denies recent illness. She went to her PCPs office, O3 sats were low there,after resting in bed in ER O2 sats mid 90's on home O2 setting. Patient states that she is on 2-3 liters of O2 during the day and 4liter at night or with activity. Denies any recent medication changes INR in coumadin clinic was >10 today, she is on coumadin for aortic valve replacement. She denies any bleeding currently but has had multiple episodes of nose bleeds in the past Date (Duration): 09/25/19 Treatment SUBSTATION SUPERVISOR: by patient, oxygen Initiating event: Denies: upper resp illness, out of meds Frequency of episodes: Reports: no prior episodes Modifying Factors - (Improves): Reports: rest Modifying Factors (Worsens): Reports: activity Associated Symptoms-Dyspnea: Denies: fever/chills, sweating, chest pain/discomfort, cough, wheezing Review of Systems - Review of Systems Constitutional: Absent: recent illness ENT: Present: nasal drainage. Absent: nose congestion, sore throat Respiratory: Present: See HPI, shortness of breath. Absent: cough Cardiology: Absent: chest pain Gastrointestinal/Abdominal: Absent: nausea, abdominal pain Genitourinary: Present: no symptoms reported Neurological: Absent: headache Medical History (Last Reviewed 09/29/19 @ 12:30 by Bonnie Boudreaux MD) Refused influenza vaccine (Acute) Onset Date: ~06/26/18 Congestive heart failure (CHF) Anemia, aplastic Onset Date: Unknown Diabetes mellitus type 2 in nonobese Onset Date: Unknown Hyperlipidemia Onset Date: Unknown Hypertension Onset Date: Unknown Hypothyroidism Onset Date: Unknown Vitamin D deficiency Onset Date: Unknown Surgical History: Surgical History (Last Reviewed 09/29/19 @ 12:30 by Bonnie Boudreaux MD) History of aortic valve replacement Onset Date: ~1987, History of cholecystectomy Onset Date: Unknown History of hysterectomy Onset Date: ~1964 Family History: Family History (Last Reviewed 09/29/19 @ 14:27 by Lola Simms RN) Mother Diabetes Hypertension CAD (coronary artery disease) Father , 78 Broken hip Social History: (Last Reviewed 09/29/19 @ 14:27 by Lola Simms RN) Social History: Marital status: / household members: none Tobacco: Smoking Status: Never smoker Alcohol: alcohol intake: never Substance Use: substance use type: does not use Dietary Habits: caffeine: Yes Physical Exam - Physical Exam General Appearance: Present: wd/wn, alert, no apparent distress Eye Exam: Normal inspection: bilateral Ears, Nose, Throat: Present: normal pharynx Respiratory: Present: no respiratory distress, no accessory muscle use, decreased breath sounds, expiration (prolonged), crackles Cardiovascular/Chest: Present: regular rate, rhythm, no murmur Gastrointestinal/Abdominal: Present: normal bowel sounds, nontender, nondistended, soft Neurological Exam: Present: alert, oriented, normal mood/affect Skin Exam: Present: normal color, warm/dry Progress - Results and Orders Patient's Lab Results:: I have reviewed the patient's lab results. - Vital Signs Patient's Vital Signs:: I have reviewed the patient's vital signs. Vital Signs: Vital Signs 09/29/19 11:54 09/29/19 11:58 09/29/19 11:59 Temperature 36.3 C Pulse Rate 77 77 75 Respiratory Rate 25 H 17 Blood Pressure 112/42 O2 Sat by Pulse Oximetry 73 L 95 - X-Ray X-Ray #1 X-Ray: chest - LLL infiltrate Interpretation: Reviewed by me - Progress/Reassessment Chief Complaint: Dyspnea Progress Note-Subjective: 09/29/19 13:07 discussed infiltrate with patient, agrees to admission for pneumonia 09/29/19 13:[address] Anthony 09/29/19 13:[address] Anthony, okay to admit for pneumonia and anemia, give one unit of RBC as Hb under 9 and chronic heart and lung disease INR elevated but currently no source of bleeding anemia: Hb trending down since last year from 12 to 7.8 concerning for occult bleed Departure Clinical Impression: Interstitial lung disease, Anticoagulation excessive Pneumonia Qualifiers: Pneumonia type: due to unspecified organism Laterality: left Lung location: lower lobe of lung Qualified Code(s): J18.9 - Pneumonia, unspecified organism CHF (congestive heart failure) Qualifiers: Heart failure type: unspecified Heart failure chronicity: acute on chronic Qualified Code(s): I50.9 - Heart failure, unspecified Anemia Qualifiers: Anemia type: unspecified type Qualified Code(s): D64.9 - Anemia, unspecified - Departure Disposition: Still a patient Condition: Stable
[2019-09-29 12:27] LABS: Albumin * 2.7 gm/dl (3.4-5.0); Anion Gap 10.3 mmol/L (6.8-13.8); BUN/Creatinine Ratio 31.1 (9.0-21.6); Bilirubin, Total 0.4 mg/dL (0.0-1.1); Ca. Corrected For Albumin 10.8 mg/dL (8.4-10.2); Calcium * 10.1 mg/dL (7.9-10.9); Carbon Dioxide 38.2 mmol/L (24-32.6); Potassium 4.5 mmol/L (3.4-4.6); Total Protein 7.1 gm/dL (6.2-8.2)
[2019-09-29] MEDS ORDERED: AZITHROMYCIN 250 MG TABLET PO STA (13:53)
[2019-09-29] MEDS ORDERED: ACETAMINOPHEN 500 MG TABLET PO PRN (14:10)
[2019-09-29] MEDS ORDERED: guaiFENesin 100 MG/5 ML SYRUP PO PRN (14:11)
[2019-09-29] MEDS ORDERED: ALBUTEROL SULFATE 2.5 MG/0.5 ML VIAL.NEB IH PRN (14:12)
[2019-09-29] MEDS ORDERED: FUROSEMIDE 10 MG/ML VIAL IV SCH (14:30)
[2019-09-29] MEDS ORDERED: diphenhydrAMINE HCL 25 MG CAPSULE PO ONE (15:44)
[2019-09-29] MEDS: ALBUTEROL SULFATE 2.5 MG/0.5 ML VIAL.NEB IH SCH ×2 (15:57→20:05)
[2019-09-29] MEDS: FAMOTIDINE 20 MG TABLET PO SCH ×2 (16:02→20:55)
[2019-09-29] MEDS: FUROSEMIDE 10 MG/ML VIAL IV SCH ×2 (16:02→20:54)
[2019-09-29] MEDS: LOSARTAN POTASSIUM 50 MG TABLET PO SCH (16:03)
--- NOTE | 2019-09-29 16:38 | HP ---
Chief Complaint - Chief Complaint Date of Service: 09/29/19 Time of Service: 16:19 Chief Complaint: I have been having worsening shortness of breath History of Present Illness: 83-year-old female with past medical history of hypertension, hyperlipidemia, type 2 diabetes, COPD on home oxygen, pulmonary fibrosis, anemia, interstitial lung disease, CHF, aortic valve replacement was evaluated in the ER after the patient was sent to the ER from her PCPs office. Patient has been undergoing pulmonary rehab for worsening shortness of breath due to pulmonary fibrosis and COPD but she has been experiencing worsening shortness of breath with mild exertion. Patient reports that last week when she went to rehab she was unable to complete the session due to the shortness of breath and she attempted to undergo session today but could not complete it due to significant dyspnea. Patient was then sent to her primary care physician's office and was subsequently sent to the ER due to significant hypoxemia and worsening of her shortness of breath. Once in the ER the patient was found to be hypoxic and below her baseline oxygen saturation, she was put on increased oxygen by nasal cannula which did not stabilize her oxygen saturation. Patient was also found to be anemic on lab with a hemoglobin of 7.8, review of her record demonstrates a gradual decline in her hemoglobin over the past several months. She denies any melena or blood in her stools but says she recently had 2 episodes of epistaxis at home. When asked she said that the nosebleeds were not of a significant amount but took a long to stop due to Coumadin. Of sign ificance patient was found to have an INR of 10 so her warfarin was held and she was evaluated for ongoing bleeding but source of bleeding was not found. Also of significance on labs she had a BNP that was more elevated than the last one on record, she was also found to have bilateral pedal edema of 3+ and bibasilar crackles on auscultation. Patient reports taking her furosemide as prescribed but admits that the dose that she is on has not been adequate to control her fluid overload. She denies any fever or chills but reports occasional hacking cough over the past several days, chest x-ray done in the ER demonstrated infiltrate over the right lung making a diagnosis of pneumonia very possible. Patient agreed to being admitted to be treated with IV antibiotics, transfusion of PRBCs, and IV diuretics to treat her conditions. Medical History (Last Reviewed 09/29/19 @ 14:27 by Lola Simms RN) Refused influenza vaccine (Acute) Onset Date: ~06/26/18 Congestive heart failure (CHF) Anemia, aplastic Onset Date: Unknown Diabetes mellitus type 2 in nonobese Onset Date: Unknown Hyperlipidemia Onset Date: Unknown Hypertension Onset Date: Unknown Hypothyroidism Onset Date: Unknown Vitamin D deficiency Onset Date: Unknown Surgical History: Surgical History (Last Reviewed 09/29/19 @ 14:27 by Lola Simms RN) History of aortic valve replacement Onset Date: ~1987, History of cholecystectomy Onset Date: Unknown History of hysterectomy Onset Date: ~1964 Family History: Family History (Last Reviewed 09/29/19 @ 14:27 by Lola Simms RN) Mother Diabetes Hypertension CAD (coronary artery disease) Father , 78 Broken hip Social History: (Last Reviewed 09/29/19 @ 14:27 by Lola Simms RN) Social History: Marital status: / household members: none Tobacco: Smoking Status: Never smoker Alcohol: alcohol intake: never Substance Use: substance use type: does not use Dietary Habits: caffeine: Yes Peds Patient Hx - Developmental: No Pertinent Hx Peds Patient Hx - Medical: No Pertinent Hx Peds Patient Hx - Cardiac/Respiratory: No Pertinent Hx Peds Patient Hx - Surgical: No Surgical History Patient History - Cancer: No Hx of Cancer Review Of Systems (GEN) - Review of Systems Generalized/Overall Review: Present: Weakness EENTM: Present: No Symptoms Reported Respiratory: Present: Cough, Shortness of Breath Cardiac: Present: Edema Abdominal: Present: No Symptoms Reported Genitourinary: Present: No Symptoms Reported Musculoskeletal: Present: No Symptoms Reported Neurological: Present: No Symptoms Reported Skin: Present: No Symptoms Reported Endocrine: Present: No Symptoms Reported Immunizations: IMMUNIZATION HX Immunizations Up to Date Yes History of Influenza Vaccine Yes Hx Pneumococcal Vaccination Yes Allergies/Adverse Reactions: Allergies Allergy/AdvReac Type Severity Reaction Status Date / Time Sulfa (Sulfonamide Allergy Unknown Other Verified 09/29/19 14:27 Antibiotics) amlodipine AdvReac Other Verified 09/29/19 14:27 Home Medications: HOME MEDICATIONS Gemfibrozil [Lopid] 600 mg PO BID 09/28/14 [Last Taken 02/08/19 08:00] Cholecalciferol (Vitamin D3) [Vitamin D3] 2,000 unit PO DAILY 04/11/17 [Last Taken 02/08/19] Blood Sugar Diagnostic [Contour Test Strip] 0 strip .ROUTE .MEDSUPPLY 10/14/18 [Last Taken Unknown] Methylcellulose [Fiber] 1,000 mg PO DAILY 10/14/18 [Last Taken 02/08/19] [place]-3 Fatty Acids [[place]-3] 1,000 mg PO DAILY 10/14/18 [Last Taken 02/08/19] Albuterol Sulfate [Albuterol Sulfate 2.5 MG/0.5ML] 1 vial INHALATION Q4H PRN #100 vial 02/03/19 [Last Taken Unknown] Albuterol Sulfate/Ipratropium [Duoneb 2.5-0.5MG/3ML Soln] 3 ml INHALATION BIDRT #100 nebu 02/03/19 [Last Taken Unknown] Budesonide [Pulmicort Respules] 0.5 mg INHALATION TID #90 vial.neb 02/03/19 [Last Taken Unknown] Formoterol Fumarate [Perforomist] 20 mcg INHALATION TID #90 vial.neb 02/03/19 [Last Taken Unknown] Warfarin Sodium 2.5 mg PO MO 02/08/19 [Last Taken 02/04/19] losartan 25 mg tablet 25 mg PO DAILY 03/18/19 [Last Taken Unknown] Albuterol Sulfate [Ventolin HFA] 1 puff INHALATION QID PRN 07/15/19 [Last Taken Unknown] Furosemide 40 mg PO DAILY 09/29/19 [Last Taken Unknown] Warfarin Sodium 5 mg PO SUTUWETHFRSA 09/29/19 [Last Taken Unknown] metFORMIN HCL [Metformin HCl] 500 mg PO BID 09/29/19 [Last Taken Unknown] Exam - Exam Vital Signs: Vital Signs - Last Taken Temp 36.4 C 09/29/19 14:59 Pulse 80 09/29/19 16:02 Resp 14 09/29/19 14:59 BP 121/47 09/29/19 16:02 Pulse Ox 92 L 09/29/19 14:59 Constitutional: Present: Alert, Oriented x3, Cooperative, Well developed, Well nourished, No distress, Elderly, Thin and frail ENT Exam: Present: normal ENT inspection, hearing grossly normal, pharynx normal, TMs normal Eye Exam: bilateral eye: normal inspection, PERRL, EOMI Neck: Present: non-tender, full range of motion, supple, normal inspection, trachea midline Back Exam: Present: normal inspection, no CVA tenderness, no vertebral tenderness Breasts: Present: Exam deferred Respiratory: Present: crackles - Bibasilar crackles, wheezing Cardiovascular/Chest: Present: no chest tenderness, no gallop, no JVD, no murmur, no rub Peripheral Pulses: carotid (R): 3+, carotid (L): 3+, femoral (R): 3+, femoral (L): 3+, dorsalis-pedis (R): 3+, dorsalis-pedis (L): 3+ Abdomen: Present: Normal bowel sounds, soft, nontender, no rebound tenderness, no hepatospenomegaly, no masses /Rectal: Present: Exam deferred Extremity: Present: normal range of motion, non-tender, normal inspection, no calf tenderness, normal capillary refill, pedal edema - 3+ bilateral pedal edema Skin Exam: Present: normal color, warm/dry, no cyanosis Lymphatic: Present: no adenopathy 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, normal cerebellar test, no motor/sensory deficits, alert, normal mood/affect, oriented x 3 Appearance: Present: appropriate appearance, appropriate insight, neat, no memory impairment Eye contact: Present: cooperative, good eye contact, normal speech Thoughts: Present: normal thought pattern, no apparent hallucination Diagnostic Studies: Abnormal Lab Results 09/29/19 09/29/19 09/29/19 Range/Units 12:12 12:12 12:12 RBC 2.79 L (4.2-5.4) M/mm3 Hgb 7.8 L* (12.5-16.0) gm/dL Hct 26.9 L (37.0-47.0) % MCHC 29.0 L (32-36) g/dl RDW 14.7 H (11.5-14.0) % Immature Gran % (Auto) 0.60 H (0.001-0.429) % Neutrophils % 92.0 H (42-75.0) % Lymphocytes % 3.7 L (20-51) % Lymphocytes # 0.18 L (1.5-3.5) k/mm3 Sodium 144 H (132-142) mmol/L Plasma Sodium 146 H (130-142) mmol/L Carbon Dioxide 38.2 H (24-32.6) mmol/L BUN 37 H (3-23) mg/dL Est GFR (Non-Af Amer) 46 L (60-130) mL/min BUN/Creatinine Ratio 31.1 H (9.0-21.6) Random Glucose 208 H (70-110) mg/dL Calcium Adj for Albumin 10.8 H (8.4-10.2) mg/dL ALT 14 L (19-67) U/L B-Natriuretic Peptide 5252 H (5-550) pg/mL Albumin 2.7 L (3.4-5.0) gm/dl Crossmatch 09/29/19 Range/Units 14:12 RBC (4.2-5.4) M/mm3 Hgb (12.5-16.0) gm/dL Hct (37.0-47.0) % MCHC (32-36) g/dl RDW (11.5-14.0) % Immature Gran % (Auto) (0.001-0.429) % Neutrophils % (42-75.0) % Lymphocytes % (20-51) % Lymphocytes # (1.5-3.5) k/mm3 Sodium (132-142) mmol/L Plasma Sodium (130-142) mmol/L Carbon Dioxide (24-32.6) mmol/L BUN (3-23) mg/dL Est GFR (Non-Af Amer) (60-130) mL/min BUN/Creatinine Ratio (9.0-21.6) Random Glucose (70-110) mg/dL Calcium Adj for Albumin (8.4-10.2) mg/dL ALT (19-67) U/L B-Natriuretic Peptide (5-550) pg/mL Albumin (3.4-5.0) gm/dl Crossmatch See Detail Laboratory Results WBC 4.9 K/mm3 (4.0-10.5) 09/29/19 12:12 RBC 2.79 M/mm3 (4.2-5.4) L 09/29/19 12:12 Hgb 7.8 gm/dL (12.5-16.0) L* 09/29/19 12:12 Hct 26.9 % (37.0-47.0) L 09/29/19 12:12 MCV 96.4 fl (78-100) 09/29/19 12:12 MCH 28.0 pg (27-31) 09/29/19 12:12 MCHC 29.0 g/dl (32-36) L 09/29/19 12:12 RDW 14.7 % (11.5-14.0) H 09/29/19 12:12 Plt Count 202 K/mm3 (150-450) 09/29/19 12:12 MPV 11.0 fl (8-12.5) 09/29/19 12:12 Immature Gran % (Auto) 0.60 % (0.001-0.429) H 09/29/19 12:12 Immature Gran # (Auto) 0.03 K/mm3 (0.000-0.0310) 09/29/19 12:12 Neutrophils % 92.0 % (42-75.0) H 09/29/19 12:12 Lymphocytes % 3.7 % (20-51) L 09/29/19 12:12 Monocytes % 3.1 % (0.0-9) 09/29/19 12:12 Eosinophils % 0.4 % (0.0-3.0) 09/29/19 12:12 Basophils % 0.2 % (0.0-1.0) 09/29/19 12:12 Nucleated RBC % 0.0 k/mm3 (0-1) 09/29/19 12:12 Neutrophils # 4.5 K/mm3 (1.3-6.0) 09/29/19 12:12 Lymphocytes # 0.18 k/mm3 (1.5-3.5) L 09/29/19 12:12 Monocytes # 0.2 k/mm3 (0.0-1.0) 09/29/19 12:12 Eosinophils # 0.0 k/mm3 (0.0-0.7) 09/29/19 12:12 Absolute Basophils 0.0 k/mm3 (0.0-0.1) 09/29/19 12:12 Sodium 144 mmol/L (132-142) H 09/29/19 12:12 Plasma Sodium 146 mmol/L (130-142) H 09/29/19 12:12 Potassium 4.5 mmol/L (3.4-4.6) 09/29/19 12:12 Chloride 100 mmol/L (97-106) 09/29/19 12:12 Carbon Dioxide 38.2 mmol/L (24-32.6) H 09/29/19 12:12 Anion Gap 10.3 mmol/L (6.8-13.8) 09/29/19 12:12 BUN 37 mg/dL (3-23) H 09/29/19 12:12 Creatinine 1.19 mg/dL (0.4-1.4) 09/29/19 12:12 Est GFR (Non-Af Amer) 46 mL/min (60-130) L 09/29/19 12:12 BUN/Creatinine Ratio 31.1 (9.0-21.6) H 09/29/19 12:12 Random Glucose 208 mg/dL (70-110) H 09/29/19 12:12 Calcium 10.1 mg/dL (7.9-10.9) 09/29/19 12:12 Calcium Adj for Albumin 10.8 mg/dL (8.4-10.2) H 09/29/19 12:12 Total Bilirubin 0.4 mg/dL (0.0-1.1) 09/29/19 12:12 AST 25 U/L (0-48) 09/29/19 12:12 ALT 14 U/L (19-67) L 09/29/19 12:12 Alkaline Phosphatase 109 U/L (50-170) 09/29/19 12:12 B-Natriuretic Peptide 5252 pg/mL (5-550) H 09/29/19 12:12 Total Protein 7.1 gm/dL (6.2-8.2) 09/29/19 12:12 Albumin 2.7 gm/dl (3.4-5.0) L 09/29/19 12:12 Blood Type A Positive 09/29/19 14:12 Antibody Screen Negative 09/29/19 14:12 Crossmatch See Detail 09/29/19 14:12 Assessment/Plan - Narrative Narrative: Patient was evaluated medical chart was reviewed and decision to admit to inpatient for treatment of a diagnosis of acute bronchopneumonia, CHF exacerbation, anemia, and COPD exacerbation. She was taken to our MedSurg floor and prepped for transfusion of 1 unit of PRBC to treat her anemia, she will also be treated with multiple doses of IV diuretics to treat her CHF exacerbation, as well as dual therapy for bronchopneumonia. Follow-up labs have been ordered for tomorrow morning to evaluate the patient's response to treatment. She is currently on an increased oxygen rate by nasal cannula and is maintaining adequate O2 saturation. We will treat her with breathing treatments as needed in order to optimize her respiratory function. All of the patient's routine meds were reconciled. Will follow daily INR to monitor for bleeding time and watch for any signs and symptoms of bleeding. - Assessment/Plan (1) Heart failure, systolic, with acute decompensation Problem: Acute (2) COPD exacerbation Problem: Acute (3) Anemia Problem: Acute (4) Dyspnea on minimal exertion Problem: Acute (5) Supratherapeutic INR Problem: Acute (6) Pulmonary fibrosis Problem: Acute (7) Fluid overload Problem: Acute (8) Acute kidney injury superimposed on CKD Problem: Acute
[2019-09-29] MEDS: metFORMIN HCL 500 MG TABLET PO SCH (17:34)
[2019-09-29] MEDS: INSULIN REGULAR, HUMAN 100 UNITS/ML VIAL SC SCH ×2 (17:34→20:53)
[2019-09-29] MEDS: ALBUTEROL SULFATE/IPRATROPIUM 3 ML NEBU IH SCH (18:23)
[2019-09-29] MEDS: BUDESONIDE 0.5 MG/2 ML VIAL.NEB IH SCH (18:24)
[2019-09-29] MEDS: GEMFIBROZIL 600 MG TABLET PO SCH (20:54)
[2019-09-30] MEDS: ALBUTEROL SULFATE/IPRATROPIUM 3 ML NEBU IH SCH (05:59)
[2019-09-30] MEDS: BUDESONIDE 0.5 MG/2 ML VIAL.NEB IH SCH (06:00)
[2019-09-30] MEDS: ALBUTEROL SULFATE 2.5 MG/0.5 ML VIAL.NEB IH SCH (06:01)
[2019-09-30 06:21] LABS: Hematocrit 33.3 % (37.0-47.0); Hemoglobin 9.7 gm/dL (12.5-16.0); Mean Cell Volume 94.9 fl (78-100); Mean Corpuscular Hemoglobin 27.6 pg (27-31); Mean Corpuscular Hgb Conc 29.1 g/dl (32-36); Neutrophil % 91.5 % (42-75.0); Platelet Count 202 K/mm3 (150-450); Red Blood Count 3.51 M/mm3 (4.2-5.4); Red Cell Distribution Width 15.1 % (11.5-14.0); White Blood Count 6.5 K/mm3 (4.0-10.5)
[2019-09-30 06:33] LABS: Albumin * 2.8 gm/dl (3.4-5.0); Anion Gap 8.9 mmol/L (6.8-13.8); BUN/Creatinine Ratio 31.1 (9.0-21.6); Bilirubin, Total 0.6 mg/dL (0.0-1.1); Ca. Corrected For Albumin 10.1 mg/dL (8.4-10.2); Calcium * 9.5 mg/dL (7.9-10.9); Carbon Dioxide 38.6 mmol/L (24-32.6); Potassium 4.5 mmol/L (3.4-4.6); Total Protein 7.4 gm/dL (6.2-8.2)
[2019-09-30 06:40] LABS: Prothrombin Time (Patient) 84.3 Seconds (9.1-10.7)
[2019-09-30 06:56] LABS: INR 9.28 INR (0.92-1.08)
[2019-09-30] MEDS: INSULIN REGULAR, HUMAN 100 UNITS/ML VIAL SC SCH (07:01)
--- NOTE | 2019-09-30 08:56 | DS ---
(1) Heart failure, systolic, with acute decompensation Problem: Acute (2) COPD exacerbation Problem: Resolved (3) Anemia Problem: Acute (4) Dyspnea on minimal exertion Problem: Resolved (5) Supratherapeutic INR Problem: Acute (6) Pulmonary fibrosis Problem: Chronic (7) Fluid overload Problem: Acute (8) Acute kidney injury superimposed on CKD Problem: Acute Date of Discharge:: 09/30/19 Hospital Course: 83-year-old female admitted for bronchopneumonia, COPD exacerbation, and decompensated CHF was evaluated at bedside was found to be afebrile and in no acute distress. Patient has shown significant improvement since being admitted to our [facility]. Her dyspnea on mild exertion has improved significantly and she reports less shortness of breath. Patient's pedal edema has also improved however she still has residual swelling of the lower extremities. Auscultation of the patient's lungs was significant only for minimal bibasilar crackles but no wheezing. Patient has been treated with IV antibiotics for her pneumonia, IV Lasix for fluid overload and she was transfused 1 unit of PRBC for ongoing anemia. Labs done this morning demonstrates an increase in her hemoglobin from 7.8 to above 9 and resolution of her hypernatremia. Patient also maintained stable vitals and adequate oxygen saturation with her usual 3 L of O2 by nasal cannula. A small decrease in her GFR was noted likely secondary to the treatment with IV Lasix in efforts to diurese her. Therefore we will discharge patient with lab orders to follow renal function and electrolytes as well as hemoglobin levels in addition to a prescription for additional days of p.o. antibiotics. Patient's p.o. Lasix will also be increased to 60 mg a day since she was found to be fluid overloaded on admission and had worsening dyspnea, this might be indicative of the need to increase her diuresis in order to avoid fluid overload. She was instructed to follow-up with her primary care doctor in 1 week. Procedures Performed: none Results and Findings: Lab Pending Results 09/29/19 12:12: WBC 4.9, RBC 2.79 L, Hgb 7.8 L*, Hct 26.9 L, MCV 96.4, MCH 28.0, MCHC 29.0 L, RDW 14.7 H, Plt Count 202, MPV 11.0, Immature Gran % (Auto) 0.60 H, Immature Gran # (Auto) 0.03, Neutrophils % 92.0 H, Lymphocytes % 3.7 L, Monocytes % 3.1, Eosinophils % 0.4, Basophils % 0.2, Nucleated RBC % 0.0, Neutrophils # 4.5, Lymphocytes # 0.18 L, Monocytes # 0.2, Eosinophils # 0.0, Absolute Basophils 0.0 09/29/19 12:12: Sodium 144 H, Plasma Sodium 146 H, Potassium 4.5, Chloride 100, Carbon Dioxide 38.2 H, Anion Gap 10.3, BUN 37 H, Creatinine 1.19, Est GFR (Non- Af Amer) 46 L, BUN/Creatinine Ratio 31.1 H, Random Glucose 208 H, Calcium 10.1, Calcium Adj for Albumin 10.8 H, Total Bilirubin 0.4, AST 25, ALT 14 L, Alkaline Phosphatase 109, Total Protein 7.1, Albumin 2.7 L 09/29/19 12:12: B-Natriuretic Peptide 5252 H 09/29/19 14:12: Blood Type A Positive, Antibody Screen Negative, Crossmatch See Detail 09/30/19 06:18: WBC 6.5 D, RBC 3.51 L, Hgb 9.7 L, Hct 33.3 L, MCV 94.9, MCH 27.6, MCHC 29.1 L, RDW 15.1 H, Plt Count 202, MPV 11.0, Immature Gran % (Auto) 0.50 H, Immature Gran # (Auto) 0.03, Neutrophils % 91.5 H, Lymphocytes % 4.1 L, Monocytes % 3.4, Eosinophils % 0.3, Basophils % 0.2, Nucleated RBC % 0.0, Neutrophils # 6.0, Lymphocytes # 0.27 L, Monocytes # 0.2, Eosinophils # 0.0, Absolute Basophils 0.0 09/30/19 06:18: Sodium 142, Plasma Sodium 143 H, Potassium 4.5, Chloride 99, Carbon Dioxide 38.6 H, Anion Gap 8.9, BUN 41 H, Creatinine 1.32, Est GFR (Non-Af Amer) 41 L, BUN/Creatinine Ratio 31.1 H, Random Glucose 173 H, Calcium 9.5, Calcium Adj for Albumin 10.1, Total Bilirubin 0.6, AST 31, ALT 14 L, Alkaline Phosphatase 118, Total Protein 7.4, Albumin 2.8 L 09/30/19 06:18: PT 84.3 H, INR (Anticoag Therapy) 9.28 H* Discharge Location: Home Disposition: Home self-care Condition: Stable Face to Face Encounter completed per [facility] Guidelines: No Discharge Activity: Activity as tolerated Discharge Diet: Consistent carbs Referrals: Thu Lema MD [Primary Care Provider] - Prescriptions (Any new or edited meds): Furosemide 20 mg PO HS #30 tab Transmission Status: Pending to [place], [place] Azithromycin [Zithromax] 250 mg PO DAILY 5 Days #5 tab Transmission Status: Pending to [place], [place] Complete Home Medications List: Complete Home Medication List: Gemfibrozil [Lopid] 600 mg PO BID 09/28/14 Cholecalciferol (Vitamin D3) [Vitamin D3] 2,000 unit PO DAILY 04/11/17 Methylcellulose [Fiber] 1,000 mg PO DAILY 10/14/18 [place]-3 Fatty Acids [[place]-3] 1,000 mg PO DAILY 10/14/18 Albuterol Sulfate [Albuterol Sulfate 2.5 MG/0.5ML] 1 vial INHALATION Q4H PRN #100 vial 02/03/19 Albuterol Sulfate/Ipratropium [Duoneb 2.5-0.5MG/3ML Soln] 3 ml INHALATION BIDRT #100 nebu 02/03/19 Budesonide [Pulmicort Respules] 0.5 mg INHALATION TID #90 vial.neb 02/03/19 Formoterol Fumarate [Perforomist] 20 mcg INHALATION TID #90 vial.neb 02/03/19 Warfarin Sodium 2.5 mg PO MO 02/08/19 losartan 25 mg tablet 25 mg PO DAILY 03/18/19 Albuterol Sulfate [Ventolin HFA] 1 puff INHALATION QID PRN 07/15/19 Furosemide 40 mg PO DAILY 09/29/19 Warfarin Sodium 5 mg PO SUTUWETHFRSA 09/29/19 metFORMIN HCL [Metformin HCl] 500 mg PO BID 09/29/19 Azithromycin [Zithromax] 250 mg PO DAILY 5 Days #5 tab 09/30/19 Furosemide 20 mg PO HS #30 tab 09/30/19
[2019-09-30] MEDS ORDERED: CHOLECALCIFEROL 1,000 UNIT CAPSULE PO SCH (09:00)
[2019-09-30] MEDS ORDERED: FUROSEMIDE 40 MG TABLET PO SCH (09:00)
[2019-09-30] MEDS ORDERED: OMEGA-3 FATTY ACIDS 1 CAP CAPSULE PO SCH (09:00)
[2019-09-30] MEDS: LOSARTAN POTASSIUM 50 MG TABLET PO SCH (09:03)
[2019-09-30] MEDS: GEMFIBROZIL 600 MG TABLET PO SCH (09:04)
[2019-09-30] MEDS: FAMOTIDINE 20 MG TABLET PO SCH (09:04)
[2019-09-30] MEDS: FUROSEMIDE 10 MG/ML VIAL IV SCH (09:04)
[2019-09-30] MEDS: metFORMIN HCL 500 MG TABLET PO SCH (09:04)
[2019-09-30 10:21] VITALS: BP 149/63
[2019-09-30] MEDS ORDERED: AZITHROMYCIN 250 MG TABLET PO SCH (13:54)
== END 2019-09-30 10:22 | disposition home or self-care (01) ==
LOC: MS 11:40 → ER 11:40 → MS 14:30
PROVIDERS: ADMIT Family Medicine; ATTEND Family Medicine
CPT/HCPCS: 36415; 36430; 71020; 71046; 80053; 83519; 83880; 85025; 85610; 86850; 87040; 93005; 94640; 94760; 96365; 96366; 96372; 96375; 99285; G0378; P9016

== ENCOUNTER 2020-10-15 14:33 | Inpatient (IN) ==
[2020-10-15 15:27] LABS: Hematocrit 30.2 % (37.0-47.0); Hemoglobin 8.2 gm/dL (12.5-16.0); Mean Cell Volume 103.8 fl (78-100); Mean Corpuscular Hemoglobin 28.2 pg (27-31); Mean Corpuscular Hgb Conc 27.2 g/dl (32-36); Neutrophil # 4.3 K/mm3 (1.3-6.0); Neutrophil % 92.4 % (42-75.0); Platelet Count 136 K/mm3 (150-450); Red Blood Count 2.91 M/mm3 (4.2-5.4); Red Cell Distribution Width 21.8 % (11.5-14.0); White Blood Count 4.7 K/mm3 (4.0-10.5)
[2020-10-15 15:36] LABS: Prothrombin Time (Patient) 26.8 Seconds (9.1-10.7)
[2020-10-15 15:37] LABS: INR 2.82 INR (0.92-1.08)
--- NOTE | 2020-10-15 15:47 | ERNOTE ---
Dyspnea - Date Date of Service: 10/15/20 - General Presenting Symptoms: shortness of breath, other - Weakness, Edema Time Seen by Provider: 10/15/20 14:51 Source: patient, family, RN notes reviewed, old records Exam Limitations: no limitations - Immun/Allergies/Home Medications Immunizations: IMMUNIZATION HX Immunizations Up to Date Yes History of Influenza Vaccine Yes Hx Pneumococcal Vaccination Yes Allergies/Adverse Reactions: Allergies Sulfa (Sulfonamide Antibiotics) Allergy (Unknown, Verified 10/15/20 15:01) Other Not sure of what the reaction was, patient state it caused her get anemia. amlodipine Adverse Reaction (Verified 10/15/20 15:01) Other cough Home Medications: HOME MEDICATIONS Gemfibrozil [Lopid] 600 mg PO BID 09/28/14 [Last Taken 02/08/19 08:00] Cholecalciferol (Vitamin D3) [Vitamin D3] 2,000 unit PO DAILY 04/11/17 [Last Taken 02/08/19] Methylcellulose [Fiber] 1,000 mg PO DAILY 10/14/18 [Last Taken 02/08/19] Victoria-3 Fatty Acids [Victoria-3] 1,000 mg PO DAILY 10/14/18 [Last Taken 02/08/19] Albuterol Sulfate [Albuterol Sulfate 2.5 MG/0.5ML] 1 vial IH Q4H PRN #100 vial 02/03/19 [Last Taken Unknown] Albuterol Sulfate/Ipratropium [Duoneb 2.5-0.5MG/3ML Soln] 3 ml IH BIDRT #100 nebu 02/03/19 [Last Taken Unknown] Budesonide [Pulmicort Respules] 0.5 mg IH TID #90 vial.neb 02/03/19 [Last Taken Unknown] Formoterol Fumarate [Perforomist] 20 mcg IH TID #90 vial.neb 02/03/19 [Last Taken Unknown] Warfarin Sodium 2.5 mg PO SUTUWETHFRSA 02/08/19 [Last Taken 02/04/19] losartan 25 mg tablet 25 mg PO DAILY 03/18/19 [Last Taken Unknown] Albuterol Sulfate [Ventolin HFA] 1 puff IH QID PRN 07/15/19 [Last Taken Unknown] Warfarin Sodium 5 mg PO MO 09/29/19 [Last Taken Unknown] albuterol sulfate 2.5 mg IH DAILY #90 ml 02/18/20 [Last Taken Unknown] metformin 500 mg tablet 500 mg PO BID #180 tab 08/11/20 [Last Taken Unknown] furosemide 40 mg tablet See Rx Instructions .ROUTE .COMPLEX #30 unknown measurement unit code: tablet 08/16/20 [Last Taken Unknown] 4 Wheeled Walker with seat and brakes See Rx Instructions .ROUTE .MEDSUPPLY #1 ea 10/01/20 [Last Taken Unknown] furosemide 40 mg tablet 40 mg PO BID #60 tab 10/11/20 [Last Taken Unknown] Metolazone [Zaroxolyn] 2.5 mg PO DAILY 10/15/20 [Last Taken Unknown] - History of Present Illness Narrative: is an 84-year-old female brought to the emergency department from home by private vehicle for weakness and lower extremity edema. She is accompanied by her daughter. Her daughter reports that her condition has been gradually worsening for approximately 6 weeks. The patient has been getting more and more weak, to the point where she is hardly getting up. She has home physical therapy, which she seems to tolerate well, but then is not able to do much else. Her appetite has been poor and she has been eating very little. Her lower extremity edema has recently started weeping, and she has pitting edema to her thighs. The patient reports being unable to lay down flat. She reports that she becomes extremely short of breath with minimal activity. She saw her PCP on 10-01-2020 for the same complaints. Her chest x-ray at that time showed a probable right lower lobe pneumonia. She was prescribed cefdinir but apparently only took it for 3 days due to diarrhea. She had a BNP of 6700 at that time. Her Lasix was increased to [address] 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 The daughter reports that the patient has had very little urine output today despite taking the additional diuretic. She is on home oxygen due to a history of COPD. She is anticoagulated on warfarin for chronic A. fib. She is also diabetic and has a history of an aortic valve transplant. Modifying Factors - (Improves): Reports: oxygen, rest Modifying Factors (Worsens): Reports: albuterol, coughing, lying down Associated Symptoms-Dyspnea: Reports: cough - Infrequent, ankle/leg swelling. Denies: fever/chills, chest pain/discomfort, leg/calf pain Prior Treatment: Reports: recently seen, treated by physician. Denies: currently on antibiotics Review of Systems - Review of Systems Constitutional: Present: recent illness, malaise, decreased activity level. Absent: fever, chills EYE: Present: no symptoms reported ENT: Absent: nose congestion, nasal drainage, sore throat Respiratory: Present: shortness of breath, cough, orthopnea Cardiology: Present: edema. Absent: chest pain, syncope Gastrointestinal/Abdominal: Present: eating less, drinking less. Absent: vomiting, diarrhea Genitourinary: Present: decreased urinary output. Absent: frequency, dysuria Musculoskeletal: Absent: muscle pain, joint pain Skin: Present: lesions - weeping from open areas on lower extremities. Absent: rash, change in color Neurological: Present: weakness. Absent: headache, dizziness/light-headedness Endocrine: Present: no symptoms reported Hematologic/Lymphatic: Present: easy bruising, easy bleeding Psych: Present: no symptoms reported Medical History (Last Reviewed 10/15/20 @ 16:13 by Jeannie Cain NP) Refused influenza vaccine (Acute) Onset Date: ~06/26/18 Congestive heart failure (CHF) Anemia, aplastic Onset Date: Unknown Diabetes mellitus type 2 in nonobese Onset Date: Unknown Hyperlipidemia Onset Date: Unknown Hypertension Onset Date: Unknown Hypothyroidism Onset Date: Unknown Vitamin D deficiency Onset Date: Unknown Surgical History: Surgical History (Last Reviewed 10/15/20 @ 16:13 by Jeannie Cain NP) History of aortic valve replacement Onset Date: ~1987, History of cholecystectomy Onset Date: Unknown History of hysterectomy Onset Date: ~1964 Family History: Family History (Last Reviewed 10/15/20 @ 16:13 by Jeannie Cain NP) Mother Diabetes Hypertension CAD (coronary artery disease) Father , 78 Broken hip Social History: (Last Reviewed 10/15/20 @ 16:13 by Jeannie Cain NP) Social History: Marital status: / household members: none Tobacco: Smoking Status: Never smoker Alcohol: alcohol intake: never Substance Use: substance use type: does not use Dietary Habits: caffeine: Yes Physical Exam - Physical Exam General Appearance: Present: alert, thin, other - Generally frail-appearing but alert and pleasant Head Exam: Present: normal inspection Eye Exam: Normal inspection: bilateral Neck: Present: normal inspection, nontender, supple Respiratory: Present: accessory muscle use - Mild tachypnea with shallow resp irations, crackles - Bilateral bases, other - Dyspneic with position change Cardiovascular/Chest: Present: regular rate, rhythm, normal peripheral pulses Gastrointestinal/Abdominal: Present: nontender, nondistended, soft Extremity Exam: Present: extremity edema - Severe pitting lower extremity edema that extends to lower abdomen. Absent: joint redness, joint swelling Neurological Exam: Present: alert, oriented, normal mood/affect. Absent: no motor/sensory deficits - Hard of hearing Skin Exam: Present: normal color, warm/dry, other - Erythematous area to coccyx with Stage II skin breakdown Progress - Results and Orders Patient's Lab Results:: I have reviewed the patient's lab results. - Vital Signs Patient's Vital Signs:: I have reviewed the patient's vital signs. Vital Signs: Vital Signs 10/15/20 14:54 10/15/20 15:01 Temperature 36.5 C Pulse Rate 81 81 Respiratory Rate 31 H 22 H Blood Pressure 135/62 126/45 O2 Sat by Pulse Oximetry 98 100 - EKG EKG #1 EKG: atrial fibrillation, RBBB EKG read: Reviewed by me - X-Ray X-Ray #1 X-Ray: chest Interpretation: Reviewed by me X-ray Comments: ONE VIEW CHEST Comparison: 10/01/20, 09/29/19, 03/18/19 Technique: A single upright AP view of the chest were obtained. Findings: The cardiac silhouette is at least mildly enlarged in size. There is been a previous median sternotomy. The mediastinum and hilum are with in normal limits. There are persistent infiltrates within the right lung, which appears to progressed in the right upper lobe. Again seen is scattered fibrotic change within the left lung. There may be a developing infiltrate in the left upper lobe. There is small bibasilar effusions with associated bibasilar atelectasis. IMPRESSION: 1. MILDLY ENLARGED HEART WITH PREVIOUS MEDIAN STERNOTOMY. 2. RIGHT LUNG INFILTRATES, WHICH HAVE PROGRESSED. 3. PROBABLE DEVELOPING INFILTRATE IN THE LEFT UPPER LOBE. 4. SMALL BIBASILAR EFFUSIONS. Electronically signed by Molina Edmonds M.D.. - Progress/Reassessment Chief Complaint: General Assessment Progress:: Unchanged Plan - Plan Plan: Dr. Ritter was contacted and agreed to admit the patient for pneumonia and CHF. Her COVID-19 test results are pending. She will be started on Rocephin and Zithromax. Departure Clinical Impression: Acute on chronic congestive heart failure Qualifiers: Heart failure type: unspecified Qualified Code(s): I50.9 - Heart failure, unspecified Bilateral pneumonia Qualifiers: Pneumonia type: due to unspecified organism Lung location: unspecified part of lung Qualified Code(s): J18.9 - Pneumonia, unspecified organism - Departure Disposition: Still a patient Condition: Stable Referrals: Thu Lema MD [Primary Care Provider] -
[2020-10-15 15:48] LABS: Anion Gap 8.2 mmol/L (6.8-13.8); BUN/Creatinine Ratio 55.2 (9.0-21.6); Bilirubin, Total 0.5 mg/dL (0.0-1.1); Ca. Corrected For Albumin 9.7 mg/dL (8.4-10.2); Calcium * 9.2 mg/dL (7.9-10.9); Carbon Dioxide 34.3 mmol/L (24-32.6); Potassium 4.5 mmol/L (3.4-4.6); Total Protein 7.1 gm/dL (6.2-8.2)
[2020-10-15 15:50] LABS: Troponin I 0.189 ng/mL (0.00-0.10)
[2020-10-15 16:12] LABS: Urine Bilirubin Negative (NEGATIVE); Urine Ketone Negative (NEGATIVE); Urine Nitrite Negative (NEGATIVE); Urine Protein Negative (NEGATIVE); Urine Urobilinogen Normal (NORMAL); Urine pH 5.5 pH (5.0-7.0)
[2020-10-15] MEDS ORDERED: AZITHROMYCIN 250 MG TABLET PO ONE (16:33)
[2020-10-15] MEDS ORDERED: cefTRIAXone SODIUM 1,000 MG/100 ML BAG IV ONE (16:33)
[2020-10-15 16:49] LABS: Urine Appearance Clear (CLEAR); Urine Bacteria TRACE; Urine Blood 5 /ul (NEGATIVE); Urine Color Yellow; Urine RBC TRACE /hpf (0-5); Urine WBC None Seen /hpf (0-5)
[2020-10-15 16:50] LABS: Urine Amorphous Sediment Many - 3+ (NONE-FEW)
[2020-10-15] MEDS ORDERED: ALBUTEROL SULFATE 2.5 MG/0.5 ML VIAL.NEB IH PRN (21:16)
[2020-10-15] MEDS ORDERED: ALBUTEROL SULFATE/IPRATROPIUM 3 ML NEBU IH SCH (21:30)
[2020-10-15] MEDS ORDERED: FUROSEMIDE 10 MG/ML VIAL IV ONE (21:39)
[2020-10-15] MEDS ORDERED: INSULIN LISPRO 100 UNITS/ML VIAL ONE (22:30)
[2020-10-15] MEDS: INSULIN LISPRO 100 UNITS/ML VIAL SC SCH (22:40)
[2020-10-15] MEDS: WARFARIN SODIUM 2.5 MG TABLET PO SCH (22:50)
--- NOTE | 2020-10-15 23:20 | HP ---
Chief Complaint - Chief Complaint Date of Service: 10/15/20 Time of Service: 21:00 Chief Complaint: Shortness of breath, weakness History of Present Illness: is an 84 yo female that was brought to the [facility] ER by family for worsening shortness of breath, cough, fatigue, and weakness. She reports she has been slowly declining for the last few months, but more rapidly in the last two weeks. She was seen by her PCP and diagnosed with pneumonia and started on cefdinir. In the ER chest xray shows worsening pneumonia. COVID negative. She also has worsening lower extremity edema and bilateral pleural effusion. She reports being given metolazone by her hand sander, but has not noticed a difference since starting that medication. She reports decreased oral intake and is not able to get around at home due to weakness. Medical History (Last Reviewed 10/15/20 @ 20:45 by Sheila Gary RN) Refused influenza vaccine (Acute) Onset Date: ~06/26/18 Congestive heart failure (CHF) Anemia, aplastic Onset Date: Unknown Diabetes mellitus type 2 in nonobese Onset Date: Unknown Hyperlipidemia Onset Date: Unknown Hypertension Onset Date: Unknown Hypothyroidism Onset Date: Unknown Vitamin D deficiency Onset Date: Unknown Surgical History: Surgical History (Last Reviewed 10/15/20 @ 20:45 by Sheila Gary RN) History of aortic valve replacement Onset Date: ~1987, History of cholecystectomy Onset Date: Unknown History of hysterectomy Onset Date: ~1964 Family History: Family History (Last Reviewed 10/15/20 @ 20:45 by Sheila Gary RN) Mother Diabetes Hypertension CAD (coronary artery disease) Father , 78 Broken hip Social History: (Last Reviewed 10/15/20 @ 20:45 by Sheila Gary RN) Social History: Marital status: / household members: none Tobacco: Smoking Status: Never smoker Alcohol: alcohol intake: never Substance Use: substance use type: does not use Dietary Habits: caffeine: Yes Review Of Systems (GEN) - Review of Systems Generalized/Overall Review: Present: Weakness, Fatigue, Weight gain. Absent: Chills, Fever EENTM: Present: No Symptoms Reported Respiratory: Present: Cough, Shortness of Breath Cardiac: Present: Edema. Absent: Chest Pain, Palpitations Abdominal: Absent: Nausea, Vomiting, Abdominal Pain, Diarrhea Genitourinary: Absent: Burning, Frequency Musculoskeletal: Present: Joint Pain Neurological: Present: Weakness. Absent: Headache, Anxiety Skin: Present: No Symptoms Reported Endocrine: Present: No Symptoms Reported Immunizations: IMMUNIZATION HX Immunizations Up to Date Yes History of Influenza Vaccine Yes Hx Pneumococcal Vaccination Yes Allergies/Adverse Reactions: Allergies Allergy/AdvReac Type Severity Reaction Status Date / Time Sulfa (Sulfonamide Allergy Unknown Other Verified 10/15/20 15:01 Antibiotics) amlodipine AdvReac Other Verified 10/15/20 15:01 Home Medications: HOME MEDICATIONS Albuterol Sulfate [Albuterol Sulfate 2.5 MG/0.5ML] 1 vial IH Q4H PRN #100 vial 02/03/19 [Last Taken Unknown] Albuterol Sulfate/Ipratropium [Duoneb 2.5-0.5MG/3ML Soln] 3 ml IH BIDRT #100 nebu 02/03/19 [Last Taken 10/15/20 08:00] Warfarin Sodium 2.5 mg PO SUTUWETHFRSA 02/08/19 [Last Taken 02/04/19] losartan 25 mg tablet 25 mg PO DAILY 03/18/19 [Last Taken 10/15/20 08:00] Albuterol Sulfate [Ventolin HFA] 1 puff IH QID PRN 07/15/19 [Last Taken 10/15/20 08:00] Warfarin Sodium 5 mg PO MO 09/29/19 [Last Taken Unknown] metformin 500 mg tablet 500 mg PO BID #180 tab 08/11/20 [Last Taken 10/15/20 08:00] 4 Wheeled Walker with seat and brakes See Rx Instructions .ROUTE .MEDSUPPLY #1 ea 10/01/20 [Last Taken Unknown] furosemide 40 mg tablet 40 mg PO BID #60 tab 10/11/20 [Last Taken 10/15/20 08:00] Albuterol Sulfate 2.5 mg IH BID PRN 10/15/20 [Last Taken Unknown] Furosemide [Lasix] See Rx Instructions .ROUTE BID 10/15/20 [Last Taken 10/15/20 08:00] Exam - Exam Vital Signs: Vital Signs - Last Taken Temp 36.2 C 10/15/20 18:24 Pulse 78 10/15/20 22:38 Resp 24 H 10/15/20 18:36 BP 108/43 10/15/20 22:38 Pulse Ox 100 10/15/20 18:36 Constitutional: Present: Alert, Oriented x3, Cooperative ENT Exam: Present: hearing grossly normal Eye Exam: bilateral eye: normal inspection Respiratory: Present: no respiratory distress, crackles - bilateral Cardiovascular/Chest: Present: no murmur, irregularly irregular Peripheral Pulses: radial (R): 2+, radial (L): 2+ Abdomen: Present: Normal bowel sounds, soft, nontender, nondistended Extremity: Present: lower extremity edema - 3+ Skin Exam: Present: normal color, warm/dry, no cyanosis Appearance: Present: appropriate appearance, appropriate insight Eye contact: Present: cooperative, good eye contact, normal speech Thoughts: Present: normal thought pattern, no apparent hallucination Diagnostic Studies: Abnormal Lab Results 10/15/20 10/15/20 10/15/20 Range/Units 15:17 15:17 15:17 RBC 2.91 L (4.2-5.4) M/mm3 Hgb 8.2 L (12.5-16.0) gm/dL Hct 30.2 L (37.0-47.0) % MCV 103.8 H (78-100) fl MCHC 27.2 L (32-36) g/dl RDW 21.8 H (11.5-14.0) % Plt Count 136 L (150-450) K/mm3 Neutrophils % 92.4 H (42-75.0) % Lymphocytes % 3.2 L (20-51) % Lymphocytes # 0.15 L (1.5-3.5) k/mm3 PT 26.8 H (9.1-10.7) Seconds INR (Anticoag Therapy) 2.82 H (0.92-1.08) INR Plasma Sodium 145 H (130-142) mmol/L Carbon Dioxide 34.3 H (24-32.6) mmol/L BUN 90 H (3-23) mg/dL Creatinine 1.63 H (0.4-1.4) mg/dL Est GFR (Non-Af Amer) 32 L (60-130) mL/min BUN/Creatinine Ratio 55.2 H (9.0-21.6) Random Glucose 353 H (70-110) mg/dL Lactic Acid, Venous (0.4-2.0) mmol/L Troponin I 0.189 H* (0.00-0.10) ng/mL B-Natriuretic Peptide 8428 H (5-550) pg/mL Albumin 3.0 L (3.4-5.0) gm/dl Urine Glucose (UA) (NEGATIVE) mg/dL Urine Blood (NEGATIVE) /ul Amorphous Sediment (NONE-FEW) 10/15/20 10/15/20 Range/Units 15:17 15:50 RBC (4.2-5.4) M/mm3 Hgb (12.5-16.0) gm/dL Hct (37.0-47.0) % MCV (78-100) fl MCHC (32-36) g/dl RDW (11.5-14.0) % Plt Count (150-450) K/mm3 Neutrophils % (42-75.0) % Lymphocytes % (20-51) % Lymphocytes # (1.5-3.5) k/mm3 PT (9.1-10.7) Seconds INR (Anticoag Therapy) (0.92-1.08) INR Plasma Sodium (130-142) mmol/L Carbon Dioxide (24-32.6) mmol/L BUN (3-23) mg/dL Creatinine (0.4-1.4) mg/dL Est GFR (Non-Af Amer) (60-130) mL/min BUN/Creatinine Ratio (9.0-21.6) Random Glucose (70-110) mg/dL Lactic Acid, Venous 2.2 H* (0.4-2.0) mmol/L Troponin I (0.00-0.10) ng/mL B-Natriuretic Peptide (5-550) pg/mL Albumin (3.4-5.0) gm/dl Urine Glucose (UA) 100 H (NEGATIVE) mg/dL Urine Blood 5 H (NEGATIVE) /ul Amorphous Sediment Many - 3+ H (NONE-FEW) Laboratory Results WBC 4.7 K/mm3 (4.0-10.5) 10/15/20 15:17 RBC 2.91 M/mm3 (4.2-5.4) L 10/15/20 15:17 Hgb 8.2 gm/dL (12.5-16.0) L 10/15/20 15:17 Hct 30.2 % (37.0-47.0) L 10/15/20 15:17 MCV 103.8 fl (78-100) H 10/15/20 15:17 MCH 28.2 pg (27-31) 10/15/20 15:17 MCHC 27.2 g/dl (32-36) L 10/15/20 15:17 RDW 21.8 % (11.5-14.0) H 10/15/20 15:17 Plt Count 136 K/mm3 (150-450) L 10/15/20 15:17 Immature Gran % (Auto) 0.40 % (0.001-0.429) 10/15/20 15:17 Immature Gran # (Auto) 0.02 K/mm3 (0.000-0.0310) 10/15/20 15:17 Neutrophils % 92.4 % (42-75.0) H 10/15/20 15:17 Lymphocytes % 3.2 % (20-51) L 10/15/20 15:17 Monocytes % 3.4 % (0.0-9) 10/15/20 15:17 Eosinophils % 0.6 % (0.0-3.0) 10/15/20 15:17 Basophils % 0.0 % (0.0-1.0) 10/15/20 15:17 Nucleated RBC % 0.0 k/mm3 (0-1) 10/15/20 15:17 Neutrophils # 4.3 K/mm3 (1.3-6.0) 10/15/20 15:17 Lymphocytes # 0.15 k/mm3 (1.5-3.5) L 10/15/20 15:17 Monocytes # 0.2 k/mm3 (0.0-1.0) 10/15/20 15:17 Eosinophils # 0.0 k/mm3 (0.0-0.7) 10/15/20 15:17 Absolute Basophils 0.0 k/mm3 (0.0-0.1) 10/15/20 15:17 PT 26.8 Seconds (9.1-10.7) H 10/15/20 15:17 INR (Anticoag Therapy) 2.82 INR (0.92-1.08) H 10/15/20 15:17 Sodium 141 mmol/L (132-142) 10/15/20 15:17 Plasma Sodium 145 mmol/L (130-142) H 10/15/20 15:17 Potassium 4.5 mmol/L (3.4-4.6) 10/15/20 15:17 Chloride 103 mmol/L (97-106) 10/15/20 15:17 Carbon Dioxide 34.3 mmol/L (24-32.6) H 10/15/20 15:17 Anion Gap 8.2 mmol/L (6.8-13.8) 10/15/20 15:17 BUN 90 mg/dL (3-23) H 10/15/20 15:17 Creatinine 1.63 mg/dL (0.4-1.4) H 10/15/20 15:17 Est GFR (Non-Af Amer) 32 mL/min (60-130) L 10/15/20 15:17 BUN/Creatinine Ratio 55.2 (9.0-21.6) H 10/15/20 15:17 Random Glucose 353 mg/dL (70-110) H 10/15/20 15:17 Lactic Acid, Venous 1.3 mmol/L (0.4-2.0) 10/15/20 18:00 Calcium 9.2 mg/dL (7.9-10.9) 10/15/20 15:17 Calcium Adj for Albumin 9.7 mg/dL (8.4-10.2) 10/15/20 15:17 Total Bilirubin 0.5 mg/dL (0.0-1.1) 10/15/20 15:17 AST 29 U/L (0-48) 10/15/20 15:17 ALT 23 U/L (19-67) 10/15/20 15:17 Alkaline Phosphatase 112 U/L (50-170) 10/15/20 15:17 Troponin I 0.189 ng/mL (0.00-0.10) H* 10/15/20 15:17 B-Natriuretic Peptide 8428 pg/mL (5-550) H 10/15/20 15:17 Total Protein 7.1 gm/dL (6.2-8.2) 10/15/20 15:17 Albumin 3.0 gm/dl (3.4-5.0) L 10/15/20 15:17 Urine Color Yellow 10/15/20 15:50 Urine Appearance Clear (CLEAR) 10/15/20 15:50 Urine pH 5.5 pH (5.0-7.0) 10/15/20 15:50 Ur Specific [place] 1.010 SP.GR. (1.005-1.010) 10/15/20 15:50 Urine Protein Negative mg/dL (NEGATIVE) 10/15/20 15:50 Urine Glucose (UA) 100 mg/dL (NEGATIVE) H 10/15/20 15:50 Urine Ketones Negative mg/dL (NEGATIVE) 10/15/20 15:50 Urine Blood 5 /ul (NEGATIVE) H 10/15/20 15:50 Urine Nitrate Negative (NEGATIVE) 10/15/20 15:50 Urine Bilirubin Negative mg/dl (NEGATIVE) 10/15/20 15:50 Urine Urobilinogen Normal EU/dl (NORMAL) 10/15/20 15:50 Ur Leukocyte Esterase Negative /ul (NEGATIVE) 10/15/20 15:50 Urine RBC Trace /hpf (0-5) 10/15/20 15:50 Urine WBC None seen /hpf (0-5) 10/15/20 15:50 Ur Epithelial Cells Trace /hpf (0-5) 10/15/20 15:50 Amorphous Sediment Many - 3+ (NONE-FEW) H 10/15/20 15:50 Urine Bacteria Trace (NONE) 10/15/20 15:50 Urine Culture Comments Culture to follow 10/15/20 15:50 SARS-CoV-2 (PCR) Not detected (NotDetected) 10/15/20 16:45 Assessment/Plan - Narrative Narrative: is an 84 yo female with bilateral pneumonia and acute on chronic diastolic congestive heart failure. She will be treated with rocephin/azithromycin and IV lasix. Will schedule duonebs and albuterol nebs PRN. Will monitor troponin which is elevated, but I believe secondary to CHF and CKD. She does not have chest pain. Will consult PT and OT for weakness. Will admit to acute inpatient status as it will take >3 midnights to treat with antibiotics and diurese and monitor for response. She may need SNF following discharge. - Assessment/Plan (1) Bilateral pneumonia Problem: Acute Qualifiers: Pneumonia type: due to unspecified organism Lung location: unspecified part of lung Qualified Code(s): J18.9 - Pneumonia, unspecified organism (2) Acute on chronic diastolic CHF (congestive heart failure) Problem: Acute (3) Elevated troponin Problem: Acute (4) CKD (chronic kidney disease) stage 3, GFR 30-59 ml/min Problem: Chronic Qualifiers: Chronic kidney disease stage 3 subtype: stage 3b (GFR 30-44) Qualified Code(s): N18.32 - Chronic kidney disease, stage 3b (5) Anemia Problem: Chronic Qualifiers: Anemia type: due to chronic kidney disease Qualified Code(s): D64.9 - Anemia, unspecified
[2020-10-15] MEDS ORDERED: ALBUTEROL SULFATE/IPRATROPIUM 3 ML NEBU IH ONE (23:32)
[2020-10-15] MEDS: ALBUTEROL SULFATE/IPRATROPIUM 3 ML NEBU IH SCH (23:38)
[2020-10-16] MEDS: ALBUTEROL SULFATE/IPRATROPIUM 3 ML NEBU IH SCH ×5 (00:12→19:46)
[2020-10-16 06:17] LABS: Prothrombin Time (Patient) 19.4 Seconds (9.1-10.7)
[2020-10-16 06:24] LABS: Albumin * 2.9 gm/dl (3.4-5.0); Anion Gap 11.3 mmol/L (6.8-13.8); BUN/Creatinine Ratio 58.1 (9.0-21.6); Bilirubin, Total 0.5 mg/dL (0.0-1.1); Ca. Corrected For Albumin 9.8 mg/dL (8.4-10.2); Calcium * 9.2 mg/dL (7.9-10.9); Potassium 4.3 mmol/L (3.4-4.6); Total Protein 6.8 gm/dL (6.2-8.2)
[2020-10-16 06:41] LABS: Hematocrit 28.8 % (37.0-47.0); Mean Cell Volume 104.3 fl (78-100); Mean Corpuscular Hemoglobin 28.6 pg (27-31); Mean Corpuscular Hgb Conc 27.4 g/dl (32-36); Mean Platelet Volume 12.3 fl (8-12.5); Neutrophil # 5.8 K/mm3 (1.3-6.0); Neutrophil % 92.7 % (42-75.0); Platelet Count 104 K/mm3 (150-450); Red Blood Count 2.76 M/mm3 (4.2-5.4); White Blood Count 6.3 K/mm3 (4.0-10.5)
[2020-10-16 06:47] LABS: INR 2.01 INR (0.92-1.08)
[2020-10-16 06:49] LABS: Hemoglobin 7.9 gm/dL (12.5-16.0)
[2020-10-16] MEDS: INSULIN LISPRO 100 UNITS/ML VIAL SC SCH ×3 (07:23→17:11)
[2020-10-16] MEDS ORDERED: FUROSEMIDE 10 MG/ML VIAL IV ONE ×2 (08:35→17:02)
[2020-10-16] MEDS: LOSARTAN POTASSIUM 50 MG TABLET PO SCH (09:34)
[2020-10-16] MEDS: AZITHROMYCIN 250 MG TABLET PO SCH (09:37)
[2020-10-16] MEDS: WARFARIN SODIUM 2.5 MG TABLET PO SCH (17:08)
--- NOTE | 2020-10-16 23:53 | PN ---
Subjective - Date and Time Seen Date: 10/16/20 Time: 10:00 Subjective Narrative: remains short of breath, weak, and poor appetite. No chest pain. She has been urinating with lasix. No fever, chills, nausea, or vomiting. Objective - Vitals Vitals: Last Vital Signs Temp 36.5 C 10/16/20 22:25 Pulse 75 10/16/20 22:25 Resp 22 H 10/16/20 22:25 BP 119/42 10/16/20 22:25 Pulse Ox 91 L 10/16/20 22:25 - Abnormal Lab Findings Abnormal Lab Findings: Abnormal Lab Results 10/16/20 10/16/20 10/16/20 Range/Units 05:55 05:55 05:55 RBC 2.76 L (4.2-5.4) M/mm3 Hgb 7.9 L* (12.5-16.0) gm/dL Hct 28.8 L (37.0-47.0) % MCV 104.3 H (78-100) fl MCHC 27.4 L (32-36) g/dl RDW 22.0 H (11.5-14.0) % Plt Count 104 L (150-450) K/mm3 Immature Gran % (Auto) 0.50 H (0.001-0.429) % Neutrophils % 92.7 H (42-75.0) % Lymphocytes % 3.0 L (20-51) % Lymphocytes # 0.19 L (1.5-3.5) k/mm3 PT 19.4 H (9.1-10.7) Seconds INR (Anticoag Therapy) 2.01 H (0.92-1.08) INR Sodium 146 H (132-142) mmol/L Plasma Sodium 146 H (130-142) mmol/L Carbon Dioxide 33.0 H (24-32.6) mmol/L BUN 90 H (3-23) mg/dL Creatinine 1.55 H (0.4-1.4) mg/dL Est GFR (Non-Af Amer) 34 L (60-130) mL/min BUN/Creatinine Ratio 58.1 H (9.0-21.6) Troponin I (0.00-0.10) ng/mL Albumin 2.9 L (3.4-5.0) gm/dl 10/16/20 Range/Units 06:00 RBC (4.2-5.4) M/mm3 Hgb (12.5-16.0) gm/dL Hct (37.0-47.0) % MCV (78-100) fl MCHC (32-36) g/dl RDW (11.5-14.0) % Plt Count (150-450) K/mm3 Immature Gran % (Auto) (0.001-0.429) % Neutrophils % (42-75.0) % Lymphocytes % (20-51) % Lymphocytes # (1.5-3.5) k/mm3 PT (9.1-10.7) Seconds INR (Anticoag Therapy) (0.92-1.08) INR Sodium (132-142) mmol/L Plasma Sodium (130-142) mmol/L Carbon Dioxide (24-32.6) mmol/L BUN (3-23) mg/dL Creatinine (0.4-1.4) mg/dL Est GFR (Non-Af Amer) (60-130) mL/min BUN/Creatinine Ratio (9.0-21.6) Troponin I 0.219 H* (0.00-0.10) ng/mL Albumin (3.4-5.0) gm/dl - Exam Constitutional: Present: Alert, Oriented x3, No distress ENT Exam: Present: hearing grossly normal Respiratory: Present: crackles Cardiovascular/Chest: Present: no murmur, irregularly irregular Abdomen: Present: Normal bowel sounds, soft, nontender, nondistended Extremity: Present: lower extremity edema - 3+ Assessment/Plan Plan Narrative: Continue lasix IV for significant volume overload. Continue antibiotics. Troponin remains elevated but clinically does not have evidence of OR. Elevation secondary to renal function and CHF. Work on diuresis, improving breathing, and improving strength. - Problems/Diagnosis (1) Bilateral pneumonia Problem: Acute Qualifiers: Pneumonia type: due to unspecified organism Lung location: unspecified part of lung Qualified Code(s): J18.9 - Pneumonia, unspecified organism (2) Acute on chronic diastolic CHF (congestive heart failure) Problem: Acute (3) Elevated troponin Problem: Acute (4) CKD (chronic kidney disease) stage 3, GFR 30-59 ml/min Problem: Chronic Qualifiers: Chronic kidney disease stage 3 subtype: stage 3b (GFR 30-44) Qualified Code(s): N18.32 - Chronic kidney disease, stage 3b (5) Anemia Problem: Chronic Qualifiers: Anemia type: due to chronic kidney disease Qualified Code(s): D64.9 - Anemia, unspecified
[2020-10-17] MEDS: ALBUTEROL SULFATE/IPRATROPIUM 3 ML NEBU IH SCH ×4 (00:32→17:59)
[2020-10-17 06:25] LABS: Hematocrit 30.2 % (37.0-47.0); Hemoglobin 8.3 gm/dL (12.5-16.0); Mean Cell Volume 104.1 fl (78-100); Mean Corpuscular Hemoglobin 28.6 pg (27-31); Mean Corpuscular Hgb Conc 27.5 g/dl (32-36); Neutrophil # 6.1 K/mm3 (1.3-6.0); Neutrophil % 92.8 % (42-75.0); Platelet Count 105 K/mm3 (150-450); Red Cell Distribution Width 23.2 % (11.5-14.0); White Blood Count 6.6 K/mm3 (4.0-10.5)
[2020-10-17] MEDS: INSULIN LISPRO 100 UNITS/ML VIAL SC SCH ×3 (07:11→17:13)
[2020-10-17 07:44] LABS: Prothrombin Time (Patient) 22.2 Seconds (9.1-10.7)
[2020-10-17 07:49] LABS: Anion Gap 8.9 mmol/L (6.8-13.8); BUN/Creatinine Ratio 54.2 (9.0-21.6); Bilirubin, Total 0.6 mg/dL (0.0-1.1); Ca. Corrected For Albumin 9.7 mg/dL (8.4-10.2); Calcium * 9.2 mg/dL (7.9-10.9); Carbon Dioxide 33.3 mmol/L (24-32.6); Potassium 4.2 mmol/L (3.4-4.6); Total Protein 6.9 gm/dL (6.2-8.2)
[2020-10-17 07:51] LABS: INR 2.32 INR (0.92-1.08)
[2020-10-17] MEDS: AZITHROMYCIN 250 MG TABLET PO SCH (09:15)
[2020-10-17] MEDS: LOSARTAN POTASSIUM 50 MG TABLET PO SCH (09:15)
[2020-10-17] MEDS ORDERED: FUROSEMIDE 10 MG/ML VIAL IV ONE (10:05)
--- NOTE | 2020-10-17 11:32 | PN ---
Subjective - Date and Time Seen Date: 10/17/20 Time: 10:15 Subjective Narrative: does not feel her breathing is much better yet. She does report her legs are less tight. Weight appears down 10lbs since admission. She is eating about 25% of meals. She reports getting up out of bed a few times. Objective - Vitals Vitals: Last Vital Signs Temp 36.3 C 10/17/20 09:58 Pulse 85 10/17/20 10:21 Resp 20 10/17/20 09:58 BP 122/44 10/17/20 10:21 Pulse Ox 93 10/17/20 09:58 - Abnormal Lab Findings Abnormal Lab Findings: Abnormal Lab Results 10/17/20 10/17/20 10/17/20 Range/Units 06:15 07:16 07:16 RBC 2.90 L (4.2-5.4) M/mm3 Hgb 8.3 L (12.5-16.0) gm/dL Hct 30.2 L (37.0-47.0) % MCV 104.1 H (78-100) fl MCHC 27.5 L (32-36) g/dl RDW 23.2 H (11.5-14.0) % Plt Count 105 L (150-450) K/mm3 Neutrophils % 92.8 H (42-75.0) % Lymphocytes % 3.9 L (20-51) % Neutrophils # 6.1 H (1.3-6.0) K/mm3 Lymphocytes # 0.26 L (1.5-3.5) k/mm3 PT 22.2 H (9.1-10.7) Seconds INR (Anticoag Therapy) 2.32 H (0.92-1.08) INR Plasma Sodium 143 H (130-142) mmol/L Carbon Dioxide 33.3 H (24-32.6) mmol/L BUN 91 H (3-23) mg/dL Creatinine 1.68 H (0.4-1.4) mg/dL Est GFR (Non-Af Amer) 31 L (60-130) mL/min BUN/Creatinine Ratio 54.2 H (9.0-21.6) Random Glucose 160 H D (70-110) mg/dL Albumin 3.0 L (3.4-5.0) gm/dl - Exam Constitutional: Present: Alert, Oriented x3, Cooperative ENT Exam: Present: hearing grossly normal Respiratory: Present: crackles Cardiovascular/Chest: Present: irregularly irregular Abdomen: Present: Normal bowel sounds, soft, nontender, nondistended Extremity: Present: lower extremity edema - 2+ Skin Exam: Present: normal color, warm/dry, no cyanosis Appearance: Present: appropriate appearance, appropriate insight Eye contact: Present: cooperative, good eye contact, normal speech Assessment/Plan Plan Narrative: Continue antibiotics. Will trial Lasix 60mg IV and she will compare the response to 40mg IV that was given yesterday. Will plan to give an additional dose of lasix IV this afternoon but will see if she notices improvement with 60mg before deciding on the next dose. She is diuresing well even if she does not believe she is making significant improvements. She may need SNF placement. - Problems/Diagnosis (1) Bilateral pneumonia Problem: Acute Qualifiers: Pneumonia type: due to unspecified organism Lung location: unspecified part of lung Qualified Code(s): J18.9 - Pneumonia, unspecified organism (2) Acute on chronic diastolic CHF (congestive heart failure) Problem: Acute (3) Elevated troponin Problem: Acute (4) CKD (chronic kidney disease) stage 3, GFR 30-59 ml/min Problem: Chronic Qualifiers: Chronic kidney disease stage 3 subtype: stage 3b (GFR 30-44) Qualified Code(s): N18.32 - Chronic kidney disease, stage 3b (5) Anemia Problem: Chronic Qualifiers: Anemia type: due to chronic kidney disease Qualified Code(s): D64.9 - Anemia, unspecified
[2020-10-17] MEDS: WARFARIN SODIUM 2.5 MG TABLET PO SCH (17:05)
[2020-10-18] MEDS: ALBUTEROL SULFATE/IPRATROPIUM 3 ML NEBU IH SCH ×4 (06:00→18:07)
[2020-10-18 06:23] LABS: Hematocrit 32.8 % (37.0-47.0); Hemoglobin 9.1 gm/dL (12.5-16.0); Mean Cell Volume 103.8 fl (78-100); Mean Corpuscular Hemoglobin 28.8 pg (27-31); Mean Corpuscular Hgb Conc 27.7 g/dl (32-36); Neutrophil # 5.5 K/mm3 (1.3-6.0); Neutrophil % 90.6 % (42-75.0); Platelet Count 131 K/mm3 (150-450); Red Blood Count 3.16 M/mm3 (4.2-5.4)
[2020-10-18 06:30] LABS: Prothrombin Time (Patient) 17.9 Seconds (9.1-10.7)
[2020-10-18 06:31] LABS: INR 1.85 INR (0.92-1.08)
[2020-10-18 06:36] LABS: Albumin * 2.7 gm/dl (3.4-5.0); Anion Gap 12.9 mmol/L (6.8-13.8); Bilirubin, Total 0.6 mg/dL (0.0-1.1); Ca. Corrected For Albumin 9.6 mg/dL (8.4-10.2); Calcium * 8.9 mg/dL (7.9-10.9); Potassium 3.9 mmol/L (3.4-4.6); Total Protein 6.3 gm/dL (6.2-8.2)
[2020-10-18] MEDS: INSULIN LISPRO 100 UNITS/ML VIAL SC SCH ×3 (07:39→17:00)
[2020-10-18] MEDS ORDERED: FUROSEMIDE 10 MG/ML VIAL IV ONE (08:17)
[2020-10-18] MEDS: LOSARTAN POTASSIUM 50 MG TABLET PO SCH (08:52)
[2020-10-18] MEDS: AZITHROMYCIN 250 MG TABLET PO SCH (08:52)
[2020-10-18] MEDS ORDERED: WARFARIN SODIUM 5 MG TABLET PO SCH (17:00)
--- NOTE | 2020-10-18 19:47 | PN ---
Subjective - Date and Time Seen Date: 10/18/20 Time: 08:30 Subjective Narrative: reports feeling a little better. Weight is down another kg. She does not notice a lot of improvement in breathing. No fever, chills, nausea, or vomiting. She believes she is getting stronger. Objective - Vitals Vitals: Last Vital Signs Temp 36.4 C 10/18/20 14:47 Pulse 84 10/18/20 18:17 Resp 18 10/18/20 18:17 BP 98/45 10/18/20 14:47 Pulse Ox 94 10/18/20 18:07 - Abnormal Lab Findings Abnormal Lab Findings: Abnormal Lab Results 10/18/20 10/18/20 10/18/20 Range/Units 06:17 06:17 06:17 RBC 3.16 L (4.2-5.4) M/mm3 Hgb 9.1 L (12.5-16.0) gm/dL Hct 32.8 L (37.0-47.0) % MCV 103.8 H (78-100) fl MCHC 27.7 L (32-36) g/dl RDW 23.0 H (11.5-14.0) % Plt Count 131 L (150-450) K/mm3 Immature Gran % (Auto) 0.50 H (0.001-0.429) % Neutrophils % 90.6 H (42-75.0) % Lymphocytes % 4.2 L (20-51) % Lymphocytes # 0.25 L (1.5-3.5) k/mm3 PT 17.9 H (9.1-10.7) Seconds INR (Anticoag Therapy) 1.85 H (0.92-1.08) INR Sodium 145 H (132-142) mmol/L Plasma Sodium 145 H (130-142) mmol/L BUN 88 H (3-23) mg/dL Creatinine 1.60 H (0.4-1.4) mg/dL Est GFR (Non-Af Amer) 33 L (60-130) mL/min BUN/Creatinine Ratio 55.0 H (9.0-21.6) Random Glucose 121 H (70-110) mg/dL Albumin 2.7 L (3.4-5.0) gm/dl - Exam Constitutional: Present: Alert, Oriented x3, Cooperative ENT Exam: Present: hearing grossly normal Respiratory: Present: crackles Cardiovascular/Chest: Present: no murmur, irregularly irregular Abdomen: Present: Normal bowel sounds, soft, nontender, nondistended, no rebound tenderness Extremity: Present: lower extremity edema - 2+ Skin Exam: Present: normal color, warm/dry, no cyanosis Assessment/Plan Plan Narrative: Slowly improving. Weight is going down, edema is improving. She feels stronger. No fever and respiratory status is stable. Looking to discharge to home with home health vs SNF in the next 1-2 days. - Problems/Diagnosis (1) Bilateral pneumonia Problem: Acute Qualifiers: Pneumonia type: due to unspecified organism Lung location: unspecified part of lung Qualified Code(s): J18.9 - Pneumonia, unspecified organism (2) Acute on chronic diastolic CHF (congestive heart failure) Problem: Acute (3) Elevated troponin Problem: Acute (4) CKD (chronic kidney disease) stage 3, GFR 30-59 ml/min Problem: Chronic Qualifiers: Chronic kidney disease stage 3 subtype: stage 3b (GFR 30-44) Qualified Code(s): N18.32 - Chronic kidney disease, stage 3b (5) Anemia Problem: Chronic Qualifiers: Anemia type: due to chronic kidney disease Chronic kidney disease stage 3 subtype: stage 3b (GFR 30-44) Qualified Code(s): D64.9 - Anemia, unspecified
[2020-10-19] MEDS: ALBUTEROL SULFATE/IPRATROPIUM 3 ML NEBU IH SCH ×3 (00:15→09:43)
[2020-10-19 06:15] LABS: Hematocrit 28.8 % (37.0-47.0); Mean Cell Volume 105.1 fl (78-100); Mean Corpuscular Hemoglobin 29.2 pg (27-31); Mean Corpuscular Hgb Conc 27.8 g/dl (32-36); Mean Platelet Volume 13.4 fl (8-12.5); Neutrophil # 4.3 K/mm3 (1.3-6.0); Neutrophil % 90.1 % (42-75.0); Platelet Count 126 K/mm3 (150-450); Red Blood Count 2.74 M/mm3 (4.2-5.4); White Blood Count 4.8 K/mm3 (4.0-10.5)
[2020-10-19 06:16] LABS: Prothrombin Time (Patient) 18.5 Seconds (9.1-10.7)
[2020-10-19 06:22] LABS: Albumin * 2.5 gm/dl (3.4-5.0); Bilirubin, Total 0.5 mg/dL (0.0-1.1); Ca. Corrected For Albumin 9.4 mg/dL (8.4-10.2); Calcium * 8.5 mg/dL (7.9-10.9); Carbon Dioxide 35.9 mmol/L (24-32.6); Potassium 3.9 mmol/L (3.4-4.6); Total Protein 5.8 gm/dL (6.2-8.2)
[2020-10-19 06:27] LABS: INR 1.92 INR (0.92-1.08)
[2020-10-19] MEDS: INSULIN LISPRO 100 UNITS/ML VIAL SC SCH ×2 (07:19→12:45)
[2020-10-19] MEDS ORDERED: FUROSEMIDE 10 MG/ML VIAL IV ONE (08:21)
[2020-10-19] MEDS: LOSARTAN POTASSIUM 50 MG TABLET PO SCH (08:42)
[2020-10-19] MEDS: AZITHROMYCIN 250 MG TABLET PO SCH (08:42)
--- NOTE | 2020-10-19 12:14 | DS ---
(1) Bilateral pneumonia Problem: Acute Qualifiers: Pneumonia type: due to unspecified organism Lung location: unspecified part of lung Qualified Code(s): J18.9 - Pneumonia, unspecified organism (2) Acute on chronic diastolic CHF (congestive heart failure) Problem: Acute (3) Elevated troponin Problem: Acute (4) CKD (chronic kidney disease) stage 3, GFR 30-59 ml/min Problem: Chronic Qualifiers: Chronic kidney disease stage 3 subtype: stage 3b (GFR 30-44) Qualified Code(s): N18.32 - Chronic kidney disease, stage 3b (5) Anemia Problem: Chronic Qualifiers: Anemia type: due to chronic kidney disease Chronic kidney disease stage 3 subtype: stage 3b (GFR 30-44) Qualified Code(s): D64.9 - Anemia, unspecified (6) Caloric malnutrition Problem: Chronic Date of Discharge:: 10/19/20 Hospital Course: was admitted for shortness of breath and weakness due to bilateral pneumonia and acute on chronic diastolic CHF. She was given IV lasix, rocephin, and azithromycin and improved. PT and OT were consulted and her weight decreased with diuresis and her strength improved. She remains weak and will be discharged to [facility] for SNF for strengthening. Her goal is to eventually return home. Procedures Performed: none Results and Findings: Pending Mircobiology Results 10/15/20 15:45 Blood Blood Culture - Preliminary NO GROWTH AFTER 48 HOURS 10/15/20 15:17 Blood Blood Culture - Preliminary NO GROWTH AFTER 48 HOURS Lab Pending Results 10/15/20 15:17: WBC 4.7, RBC 2.91 L, Hgb 8.2 L, Hct 30.2 L, MCV 103.8 H, MCH 28.2, MCHC 27.2 L, RDW 21.8 H, Plt Count 136 L, Immature Gran % (Auto) 0.40, Immature Gran # (Auto) 0.02, Neutrophils % 92.4 H, Lymphocytes % 3.2 L, Monocytes % 3.4, Eosinophils % 0.6, Basophils % 0.0, Nucleated RBC % 0.0, Neutrophils # 4.3, Lymphocytes # 0.15 L, Monocytes # 0.2, Eosinophils # 0.0, Absolute Basophils 0.0 10/15/20 15:17: PT 26.8 H, INR (Anticoag Therapy) 2.82 H 10/15/20 15:17: Sodium 141, Plasma Sodium 145 H, Potassium 4.5, Chloride 103, Carbon Dioxide 34.3 H, Anion Gap 8.2, BUN 90 H, Creatinine 1.63 H, Est GFR (Non- Af Amer) 32 L, BUN/Creatinine Ratio 55.2 H, Random Glucose 353 H, Calcium 9.2, Calcium Adj for Albumin 9.7, Total Bilirubin 0.5, AST 29, ALT 23, Alkaline Phosphatase 112, Troponin I 0.189 H*, B-Natriuretic Peptide 8428 H, Total Protein 7.1, Albumin 3.0 L 10/15/20 15:17: Lactic Acid, Venous 2.2 H* 10/15/20 15:50: Urine Color Yellow, Urine Appearance Clear, Urine pH 5.5, Ur Specific [place] 1.010, Urine Protein Negative, Urine Glucose (UA) 100 H, Urine Ketones Negative, Urine Blood 5 H, Urine Nitrate Negative, Urine Bilirubin Negative, Urine Urobilinogen Normal, Ur Leukocyte Esterase Negative, Urine RBC Trace, Urine WBC None seen, Ur Epithelial Cells Trace, Amorphous Sediment Many - 3+ H, Urine Bacteria Trace, Urine Culture Comments Culture to follow 10/15/20 16:45: SARS-CoV-2 (PCR) Not detected 10/15/20 18:00: Lactic Acid, Venous 1.3 10/16/20 05:55: WBC 6.3 D, RBC 2.76 L, Hgb 7.9 L*, Hct 28.8 L, MCV 104.3 H, MCH 28.6, MCHC 27.4 L, RDW 22.0 H, Plt Count 104 L, MPV 12.3, Immature Gran % (Auto) 0.50 H, Immature Gran # (Auto) 0.03, Neutrophils % 92.7 H, Lymphocytes % 3.0 L, Monocytes % 2.5, Eosinophils % 1.1, Basophils % 0.2, Nucleated RBC % 0.0, Neutrophils # 5.8, Lymphocytes # 0.19 L, Monocytes # 0.2, Eosinophils # 0.1, Absolute Basophils 0.0 10/16/20 05:55: PT 19.4 H, INR (Anticoag Therapy) 2.01 H 10/16/20 05:55: Sodium 146 H, Plasma Sodium 146 H, Potassium 4.3, Chloride 106, Carbon Dioxide 33.0 H, Anion Gap 11.3, BUN 90 H, Creatinine 1.55 H, Est GFR (Non-Af Amer) 34 L, BUN/Creatinine Ratio 58.1 H, Random Glucose 107 D, Calcium 9.2, Calcium Adj for Albumin 9.8, Total Bilirubin 0.5, AST 30, ALT 21, Alkaline Phosphatase 104, Total Protein 6.8, Albumin 2.9 L 10/16/20 06:00: Troponin I 0.219 H* 10/17/20 06:15: WBC 6.6, RBC 2.90 L, Hgb 8.3 L, Hct 30.2 L, MCV 104.1 H, MCH 28.6, MCHC 27.5 L, RDW 23.2 H, Plt Count 105 L, MPV TNP, Immature Gran % (Auto) 0.30, Immature Gran # (Auto) 0.02, Neutrophils % 92.8 H, Lymphocytes % 3.9 L, Monocytes % 2.7, Eosinophils % 0.3, Basophils % 0.0, Nucleated RBC % 0.0, Neutrophils # 6.1 H, Lymphocytes # 0.26 L, Monocytes # 0.2, Eosinophils # 0.0, Absolute Basophils 0.0 10/17/20 07:16: PT 22.2 H, INR (Anticoag Therapy) 2.32 H 10/17/20 07:16: Sodium 142, Plasma Sodium 143 H, Potassium 4.2, Chloride 104, Carbon Dioxide 33.3 H, Anion Gap 8.9, BUN 91 H, Creatinine 1.68 H, Est GFR (Non- Af Amer) 31 L, BUN/Creatinine Ratio 54.2 H, Random Glucose 160 H D, Calcium 9.2, Calcium Adj for Albumin 9.7, Total Bilirubin 0.6, AST 33, ALT 21, Alkaline P hosphatase 116, Total Protein 6.9, Albumin 3.0 L 10/18/20 06:17: WBC 6.0, RBC 3.16 L, Hgb 9.1 L, Hct 32.8 L, MCV 103.8 H, MCH 28.8, MCHC 27.7 L, RDW 23.0 H, Plt Count 131 L, Immature Gran % (Auto) 0.50 H, Immature Gran # (Auto) 0.03, Neutrophils % 90.6 H, Lymphocytes % 4.2 L, Monocytes % 3.5, Eosinophils % 1.2, Basophils % 0.0, Nucleated RBC % 0.0, Neutrophils # 5.5, Lymphocytes # 0.25 L, Monocytes # 0.2, Eosinophils # 0.1, Absolute Basophils 0.0 10/18/20 06:17: PT 17.9 H, INR (Anticoag Therapy) 1.85 H 10/18/20 06:17: Sodium 145 H, Plasma Sodium 145 H, Potassium 3.9, Chloride 104, Carbon Dioxide 32.0, Anion Gap 12.9, BUN 88 H, Creatinine 1.60 H, Est GFR (Non- Af Amer) 33 L, BUN/Creatinine Ratio 55.0 H, Random Glucose 121 H, Calcium 8.9, Calcium Adj for Albumin 9.6, Total Bilirubin 0.6, AST 35, ALT 19, Alkaline Phosphatase 104, Total Protein 6.3, Albumin 2.7 L 10/19/20 05:55: WBC 4.8, RBC 2.74 L, Hgb 8.0 L, Hct 28.8 L, MCV 105.1 H, MCH 29.2, MCHC 27.8 L, RDW 23.0 H, Plt Count 126 L, MPV 13.4 H, Immature Gran % (Auto) 0.40, Immature Gran # (Auto) 0.02, Neutrophils % 90.1 H, Lymphocytes % 4.0 L, Monocytes % 4.2, Eosinophils % 1.3, Basophils % 0.0, Nucleated RBC % 0.0, Neutrophils # 4.3, Lymphocytes # 0.19 L, Monocytes # 0.2, Eosinophils # 0.1, Absolute Basophils 0.0 10/19/20 05:55: PT 18.5 H, INR (Anticoag Therapy) 1.92 H 10/19/20 05:55: Sodium 145 H, Plasma Sodium 147 H, Potassium 3.9, Chloride 104, Carbon Dioxide 35.9 H, Anion Gap 9.0, BUN 79 H, Creatinine 1.52 H, Est GFR (Non- Af Amer) 35 L, BUN/Creatinine Ratio 52.0 H, Random Glucose 212 H D, Calcium 8.5, Calcium Adj for Albumin 9.4, Total Bilirubin 0.5, AST 30, ALT 20, Alkaline Phosphatase 93, Total Protein 5.8 L, Albumin 2.5 L Discharge Location: [facility] Disposition: SNF Condition: Stable Level of Care: SNF Discharge Activity: Activity as tolerated Discharge Diet: Consistent carbs, Low salt Half-Way Therapy: Physical Therapy, Occupation Therapy Referrals: Thu Lema MD [Primary Care Provider] - One Week (Video visits) Problem Oriented Discharge Instructions to Patient/Family: Community-Acquired Pneumonia, Adult, [id number], CHF Patient Instructions Additional Patient Instructions (free text): [facility]- PT and OT to evaluate and treat. Fax discharge summary orders, and meds and call report. Telehealth video appointment with Dr. Lema on November 08 at 1:30 PM. Labs to be checked 10/21/20 for Kidney function and INR. Prescriptions (Any new or edited meds): Furosemide [Lasix] 80 mg PO BID #60 tab Transmission Status: Pending to [facility] Cefdinir [Omnicef] 300 mg PO Q12H #10 cap Transmission Status: Pending to [facility] Complete Home Medications List: Complete Home Medication List: Albuterol Sulfate [Albuterol Sulfate 2.5 MG/0.5ML] 1 vial IH Q4H PRN #100 vial 02/03/19 Albuterol Sulfate/Ipratropium [Duoneb 2.5-0.5MG/3ML Soln] 3 ml IH BIDRT #100 nebu 02/03/19 Warfarin Sodium 2.5 mg PO SUTUWETHFRSA 02/08/19 losartan 25 mg tablet 25 mg PO DAILY 03/18/19 Albuterol Sulfate [Ventolin HFA] 1 puff IH QID PRN 07/15/19 Warfarin Sodium 5 mg PO MO 09/29/19 metformin 500 mg tablet 500 mg PO BID #180 tab 08/11/20 4 Wheeled Walker with seat and brakes See Rx Instructions .ROUTE .MEDSUPPLY #1 ea 10/01/20 Albuterol Sulfate 2.5 mg IH BID PRN 10/15/20 Ferrous Sulfate [Iron] 325 mg PO DAILY@1200 10/16/20 Cefdinir [Omnicef] 300 mg PO Q12H #10 cap 10/19/20 Furosemide [Lasix] 80 mg PO BID #60 tab 10/19/20 Amb Orders for Discharge: Basic Metabolic Panel Time Frame: 10/21/20, Facility: [facility], Location: Laboratory Prothrombin Time Time Frame: 10/21/20, Facility: [facility], Location: Laboratory Forms: Patient Portal Registration
[2020-10-19 13:24] VITALS: BP 108/46
== END 2020-10-19 13:41 | DRG 291 ==
LOC: ER 14:33 → MS 18:08
PROVIDERS: ADMIT Family Medicine; ATTEND Family Medicine
DX: Z79.01 Long term (current) use of anticoagulants; D64.9 Anemia, unspecified; L89.152 Pressure ulcer of sacral region, stage 2; R77.8 Other specified abnormalities of plasma proteins; I50.33 Acute on chronic diastolic (congestive) heart failure; I48.20 Chronic atrial fibrillation, unspecified; R53.1 Weakness; I13.0 Hypertensive heart and chronic kidney disease with heart failure and stage 1 through stage 4 chronic kidney disease, or unspecified chronic kidney disease; N18.32 Chronic kidney disease, stage 3b; E46 Unspecified protein-calorie malnutrition; E11.22 Type 2 diabetes mellitus with diabetic chronic kidney disease; J18.9 Pneumonia, unspecified organism; D63.1 Anemia in chronic kidney disease; Z68.1 Body mass index [BMI] 19.9 or less, adult

== ENCOUNTER 2020-11-02 14:11 | Observation (INO) ==
--- NOTE | 2020-11-02 15:13 | ERNOTE ---
Integumentary HPI - Narrative Date of Service: 11/02/20 - General Presenting Symptoms: other - Cellulitis Time Seen by Provider: 11/02/20 15:04 Source: patient, family, RN notes reviewed, old records Exam Limitations: no limitations - Immun/Allergies/Home Medications Immunizations: IMMUNIZATION HX Immunizations Up to Date Yes History of Influenza Vaccine Yes Hx Pneumococcal Vaccination Yes Allergies/Adverse Reactions: Allergies Allergy/AdvReac Type Severity Reaction Status Date / Time Sulfa (Sulfonamide Allergy Unknown Other Verified 11/02/20 14:35 Antibiotics) amlodipine AdvReac Other Verified 11/02/20 14:35 Home Medications: HOME MEDICATIONS losartan 25 mg tablet 25 mg PO DAILY 03/18/19 [Last Taken 10/15/20 08:00] Albuterol Sulfate [Ventolin HFA] 1 puff IH QID PRN 07/15/19 [Last Taken 10/15/20 08:00] metformin 500 mg tablet 500 mg PO BID #180 tab 08/11/20 [Last Taken 10/15/20 08:00] Albuterol Sulfate 2.5 mg IH BID PRN 10/15/20 [Last Taken Unknown] Ferrous Sulfate [Iron] 325 mg PO DAILY@1200 10/16/20 [Last Taken Unknown] albuterol sulfate 2.5 mg/0.5 mL solution for nebulization 2.5 mg IH Q4H PRN #100 vial 10/29/20 [Last Taken Unknown] ipratropium 0.5 mg-albuterol 3 mg (2.5 mg base)/3 mL nebulization soln 3 ml IH BIDRT #100 nebu 10/29/20 [Last Taken Unknown] furosemide 80 mg tablet 80 mg PO BID #60 tab 11/01/20 [Last Taken Unknown] warfarin 5 mg tablet 5 mg PO .COMPLEX #30 tab 11/01/20 [Last Taken Unknown] Gemfibrozil 600 mg PO BID 11/02/20 [Last Taken Unknown] - History of Present Illness Narrative: is a 84 year old female brought to the ED from home for redness in her left leg. Her family first noticed this 5 days ago when she was discharged from the [facility]. She was there for skilled care after being hospitalized here for pneumonia and CHF. She was discharged from here on 10/19 on cefdinir, which she would have still been taking when she developed the redness in her leg. She also reports severe edema in her legs. This had improved while she was hospitalized and is now worse again. She also reports an area of ecchymosis on the dorsum of her right foot. She noticed this earlier today and is unsure how it occurred. Location: Reports: lower extremity - left Quality: Reports: painful Exposure: Reports: no cause identified Prior Treatment: Reports: recently hospitalized Review of Systems - Review of Systems Constitutional: Present: recent illness. Absent: fever, chills EYE: Present: no symptoms reported ENT: Present: no symptoms reported Respiratory: Present: shortness of breath - with exertion, chronic. Absent: cough Cardiology: Present: edema. Absent: chest pain Gastrointestinal/Abdominal: Absent: nausea, vomiting, diarrhea Genitourinary: Absent: decreased urinary output Musculoskeletal: Present: muscle pain. Absent: joint pain Skin: Present: lesions, change in color. Absent: rash Neurological: Absent: headache, dizziness/light-headedness Endocrine: Present: no symptoms reported Hematologic/Lymphatic: Present: easy bruising, easy bleeding Psych: Present: no symptoms reported Medical History (Last Reviewed 11/02/20 @ 17:18 by Jeannie Cain NP) Refused influenza vaccine (Acute) Onset Date: ~06/26/18 Congestive heart failure (CHF) Anemia, aplastic Onset Date: Unknown Diabetes mellitus type 2 in nonobese Onset Date: Unknown Hyperlipidemia Onset Date: Unknown Hypertension Onset Date: Unknown Hypothyroidism Onset Date: Unknown Vitamin D deficiency Onset Date: Unknown Surgical History: Surgical History (Last Reviewed 11/02/20 @ 17:18 by Jeannie Cain NP) History of aortic valve replacement Onset Date: ~1987, History of cholecystectomy Onset Date: Unknown History of hysterectomy Onset Date: ~1964 Family History: Family History (Last Reviewed 11/02/20 @ 17:18 by Jeannie Cain NP) Mother Diabetes Hypertension CAD (coronary artery disease) Father , 78 Broken hip Social History: (Last Reviewed 11/02/20 @ 17:18 by Jeannie Cain NP) Social History: Marital status: / household members: none Tobacco: Smoking Status: Never smoker Alcohol: alcohol intake: never Substance Use: substance use type: does not use Dietary Habits: caffeine: Yes Physical Exam - Physical Exam General Appearance: Present: wd/wn, alert, no apparent distress, cheerful Head Exam: Present: normal inspection Eye Exam: Normal inspection: bilateral Neck: Present: normal inspection, nontender, supple Respiratory: Present: no respiratory distress, no accessory muscle use, crackles - bibasilar Cardiovascular/Chest: Present: regular rate, rhythm, systolic murmur Peripheral Pulses: N=norm/S=strong/W=weak/B=bound/A=absent: Dorsalis-pedis (R): Weak, Dorsalis-pedis (L): Weak Gastrointestinal/Abdominal: Present: nontender, nondistended, soft Extremity Exam: Present: decreased range of motion - lower extremities d/t edema, extremity edema - 4+ pitting bilateral legs from above knees down, other - Left lower leg tender to palpation. Absent: joint redness, joint swelling Neurological Exam: Present: alert, oriented, normal mood/affect. Absent: no motor/sensory deficits - decreased sensation in feet Skin Exam: Present: warm/dry, other - petichiae/purpura present on extremities, large ecchymosis to right dorsal foot, Left lower leg with severe erythema and is warm/tender to touch Progress - Results and Orders Patient's Lab Results:: I have reviewed the patient's lab results. - Vital Signs Patient's Vital Signs:: I have reviewed the patient's vital signs. Vital Signs: Vital Signs 11/02/20 14:30 11/02/20 14:56 11/02/20 15:06 Temperature 36.2 C Pulse Rate 87 78 75 Respiratory Rate 23 H 23 H 20 Blood Pressure 111/40 121/50 116/44 O2 Sat by Pulse Oximetry 100 100 100 - Progress/Reassessment Chief Complaint: Cellulitis Progress:: Unchanged Progress Note-Subjective: 11/02/20 16:30 The patient has developed cellulitis in her left lower leg and foot while on cefdinir. Her CHF is essentially unchanged from her previous hospitalization with a BNP of 8700 and severe edema to her legs, as well as crackles in both lungs. Her renal function has worsened with a GFR of 26. Lactic acid is normal and WBC is only 2.2K but she does have a left shift. Her INR is also supratherapuetic at 4.57. Dr. Ritter was contacted and agreed to admit the patient to observation status. She is being started on Levaquin in the ED. Bed assignment pending COVID test results. 11/02/20 18:04 The patient is negative for COVID-19 and will be taken to Med/Surg Departure Clinical Impression: Anticoagulation excessive, Acute kidney injury superimposed on CKD, Cellulitis of left lower extremity CHF (congestive heart failure) Qualifiers: Heart failure type: unspecified Heart failure chronicity: unspecified Qualified Code(s): I50.9 - Heart failure, unspecified - Departure Disposition: Still a patient Condition: Stable
[2020-11-02 15:32] LABS: Hematocrit 30.1 % (37.0-47.0); Hemoglobin 8.2 gm/dL (12.5-16.0); Mean Cell Volume 108.7 fl (78-100); Mean Corpuscular Hemoglobin 29.6 pg (27-31); Mean Corpuscular Hgb Conc 27.2 g/dl (32-36); Mean Platelet Volume 10.4 fl (8-12.5); Platelet Count 92 K/mm3 (150-450); Red Blood Count 2.77 M/mm3 (4.2-5.4); Red Cell Distribution Width 20.9 % (11.5-14.0); White Blood Count 2.2 K/mm3 (4.0-10.5)
[2020-11-02 15:38] LABS: Total Cells Counted 100
[2020-11-02 15:53] LABS: Albumin * 2.8 gm/dl (3.4-5.0); Anion Gap 7.9 mmol/L (6.8-13.8); BUN/Creatinine Ratio 48.7 (9.0-21.6); Bilirubin, Total 0.4 mg/dL (0.0-1.1); CRP 1.3 mg/dL (0.0-0.9); Ca. Corrected For Albumin 9.2 mg/dL (8.4-10.2); Calcium * 8.6 mg/dL (7.9-10.9); Potassium 4.9 mmol/L (3.4-4.6); Total Protein 6.6 gm/dL (6.2-8.2)
[2020-11-02 16:00] LABS: Prothrombin Time (Patient) 44.2 Seconds (9.1-10.7)
[2020-11-02 16:06] LABS: Eosinophil 4 % (0-3); Lymphocyte 14 % (20-51); Monocyte 4 % (0-9); Neutrophil 78 % (42-75); Neutrophil # 1.7 K/mm3 (1.3-6.0)
[2020-11-02 16:07] LABS: Anisocytosis 2+; Hypochromia 2+; INR 4.57 INR (0.92-1.08); Schistocytes 2+
[2020-11-02 16:09] LABS: Platelet Estimate Decreased (NORMAL)
[2020-11-02] MEDS ORDERED: LEVOFLOXACIN IN DEXTROSE 5 % 750 MG/150 ML BAG IV ONE (16:25)
[2020-11-02] MEDS ORDERED: ALBUTEROL SULFATE/IPRATROPIUM 3 ML NEBU IH SCH (22:45)
[2020-11-03] MEDS ORDERED: ALBUTEROL SULFATE/IPRATROPIUM 3 ML NEBU IH SCH ×2 (07:00→19:00)
[2020-11-03] MEDS ORDERED: ALBUTEROL SULFATE 2.5 MG/3 ML IH PRN (09:38)
[2020-11-03] MEDS ORDERED: ALBUTEROL SULFATE 2.5 MG/0.5 ML VIAL.NEB IH PRN (09:38)
[2020-11-03] MEDS ORDERED: FUROSEMIDE 10 MG/ML VIAL IV ONE (09:39)
[2020-11-03 09:57] LABS: Hematocrit 27.6 % (37.0-47.0); Mean Cell Volume 108.2 fl (78-100); Mean Corpuscular Hemoglobin 29.8 pg (27-31); Mean Corpuscular Hgb Conc 27.5 g/dl (32-36); Mean Platelet Volume 12.9 fl (8-12.5); Neutrophil # 1.9 K/mm3 (1.3-6.0); Neutrophil % 82.8 % (42-75.0); Platelet Count 110 K/mm3 (150-450); Red Blood Count 2.55 M/mm3 (4.2-5.4); Red Cell Distribution Width 20.8 % (11.5-14.0); White Blood Count 2.3 K/mm3 (4.0-10.5)
[2020-11-03 10:11] LABS: Albumin * 2.5 gm/dl (3.4-5.0); Anion Gap 7.4 mmol/L (6.8-13.8); BUN/Creatinine Ratio 49.7 (9.0-21.6); Bilirubin, Total 0.4 mg/dL (0.0-1.1); Ca. Corrected For Albumin 9.6 mg/dL (8.4-10.2); Calcium * 8.7 mg/dL (7.9-10.9); Carbon Dioxide 35.4 mmol/L (24-32.6); Potassium 4.8 mmol/L (3.4-4.6)
[2020-11-03 10:12] LABS: Hemoglobin 7.6 gm/dL (12.5-16.0)
[2020-11-03 11:41] LABS: Prothrombin Time (Patient) 33.8 Seconds (9.1-10.7)
[2020-11-03 11:47] LABS: INR 3.45 INR (0.92-1.08)
--- NOTE | 2020-11-03 11:47 | HP ---
Chief Complaint - Chief Complaint Date of Service: 11/02/20 Time of Service: 17:00 Chief Complaint: Leg redness and swelling History of Present Illness: is an 84 yo female who was back home after being discharged from the skilled nursing. She had been treated with cefdinir for pneumonia and had improved. However while on this she had noticed left lower leg redness. No open wounds or injuries. She did have brusing on the top of her right foot. She does not recall trauma. She denies shortness of breath, fever, chills, nausea, or vomiting. In the ER she was evaluated and INR was elevated at 4.57, WBC 2.2, Hgb 8.2, creatinine 1.95 which is near her baseline. Medical History (Last Reviewed 11/02/20 @ 19:00 by Estela Mckay RN) Refused influenza vaccine (Acute) Onset Date: ~06/26/18 Congestive heart failure (CHF) Anemia, aplastic Onset Date: Unknown Diabetes mellitus type 2 in nonobese Onset Date: Unknown Hyperlipidemia Onset Date: Unknown Hypertension Onset Date: Unknown Hypothyroidism Onset Date: Unknown Vitamin D deficiency Onset Date: Unknown Surgical History: Surgical History (Last Reviewed 11/02/20 @ 19:00 by Estela Mckay RN) History of aortic valve replacement Onset Date: ~1987, History of cholecystectomy Onset Date: Unknown History of hysterectomy Onset Date: ~1964 Family History: Family History (Last Reviewed 11/02/20 @ 19:00 by Estela Mckay RN) Mother Diabetes Hypertension CAD (coronary artery disease) Father , 78 Broken hip Social History: (Last Reviewed 11/02/20 @ 19:00 by Estela Mckay RN) Social History: Marital status: / household members: none Tobacco: Smoking Status: Never smoker Alcohol: alcohol intake: never Substance Use: substance use type: does not use Dietary Habits: caffeine: Yes Review Of Systems (GEN) - Review of Systems Generalized/Overall Review: Present: Weakness. Absent: Chills, Fever EENTM: Present: No Symptoms Reported Respiratory: Present: Cough. Absent: Shortness of Breath Cardiac: Present: Edema. Absent: Chest Pain, Palpitations, Syncope Abdominal: Absent: Nausea, Vomiting, Abdominal Pain Genitourinary: Present: No Symptoms Reported Musculoskeletal: Present: No Symptoms Reported Neurological: Present: No Symptoms Reported Skin: Present: Change in Color, Bruising Endocrine: Present: No Symptoms Reported Immunizations: IMMUNIZATION HX Immunizations Up to Date Yes History of Influenza Vaccine Yes Hx Pneumococcal Vaccination Yes Allergies/Adverse Reactions: Allergies Allergy/AdvReac Type Severity Reaction Status Date / Time Sulfa (Sulfonamide Allergy Unknown Other Verified 11/02/20 14:35 Antibiotics) amlodipine AdvReac Other Verified 11/02/20 14:35 Home Medications: HOME MEDICATIONS losartan 25 mg tablet 25 mg PO DAILY 03/18/19 [Last Taken 10/15/20 08:00] Albuterol Sulfate [Ventolin HFA] 1 puff IH QID PRN 07/15/19 [Last Taken 10/15/20 08:00] metformin 500 mg tablet 500 mg PO BID #180 tab 08/11/20 [Last Taken 10/15/20 08:00] Albuterol Sulfate 2.5 mg IH BID PRN 10/15/20 [Last Taken Unknown] Ferrous Sulfate [Iron] 325 mg PO DAILY@1200 10/16/20 [Last Taken Unknown] albuterol sulfate 2.5 mg/0.5 mL solution for nebulization 2.5 mg IH Q4H PRN #100 vial 10/29/20 [Last Taken Unknown] ipratropium 0.5 mg-albuterol 3 mg (2.5 mg base)/3 mL nebulization soln 3 ml IH BIDRT #100 nebu 10/29/20 [Last Taken Unknown] furosemide 80 mg tablet 80 mg PO BID #60 tab 11/01/20 [Last Taken Unknown] Gemfibrozil 600 mg PO BID 11/02/20 [Last Taken Unknown] Warfarin Sodium 5 mg PO DAILY 11/02/20 [Last Taken Unknown] Exam - Exam Vital Signs: Vital Signs - Last Taken Temp 36.5 C 11/03/20 10:28 Pulse 84 11/03/20 11:22 Resp 18 11/03/20 10:28 BP 114/53 11/03/20 11:22 Pulse Ox 99 11/03/20 10:28 Constitutional: Present: Alert, Oriented x3, Cooperative ENT Exam: Present: hearing grossly normal Eye Exam: bilateral eye: normal inspection Respiratory: Present: lungs clear, normal breath sounds, no respiratory distress Cardiovascular/Chest: Present: no murmur, irregularly irregular Peripheral Pulses: radial (R): 2+, radial (L): 2+ Abdomen: Present: Normal bowel sounds, soft, nontender, nondistended Extremity: Present: lower extremity edema - 3+ Skin Exam: Present: other - erythematous left leg from knee to ankle, no drainage. dorsum of right foot with hematoma Neurologic: Present: alert, normal mood/affect, oriented x 3 Appearance: Present: appropriate appearance, appropriate insight Eye contact: Present: cooperative, good eye contact, normal speech Thoughts: Present: normal thought pattern, no apparent hallucination Diagnostic Studies: Abnormal Lab Results 11/02/20 11/02/20 11/02/20 Range/Units 15:26 15:26 15:26 WBC 2.2 L (4.0-10.5) K/mm3 RBC 2.77 L (4.2-5.4) M/mm3 Hgb 8.2 L (12.5-16.0) gm/dL Hct 30.1 L (37.0-47.0) % MCV 108.7 H (78-100) fl MCHC 27.2 L (32-36) g/dl RDW 20.9 H (11.5-14.0) % Plt Count 92 L (150-450) K/mm3 MPV (8-12.5) fl Immature Gran % (Auto) (0.001-0.429) % Neutrophils % (42-75.0) % Neutrophils % (Manual) 78 H (42-75) % Lymphocytes % (20-51) % Lymphocytes % (Manual) 14 L (20-51) % Eosinophils % (Manual) 4 H (0-3) % Lymphocytes # (1.5-3.5) k/mm3 Lymphocytes # (Manual) 0.3 L (1.5-3.5) k/mm3 Platelet Estimate Decreased L (NORMAL) PT 44.2 H (9.1-10.7) Seconds INR (Anticoag Therapy) 4.57 H* (0.92-1.08) INR Plasma Sodium 143 H (130-142) mmol/L Potassium 4.9 H (3.4-4.6) mmol/L Carbon Dioxide 34.0 H (24-32.6) mmol/L BUN 95 H (3-23) mg/dL Creatinine 1.95 H D (0.4-1.4) mg/dL Est GFR (Non-Af Amer) 26 L D (60-130) mL/min BUN/Creatinine Ratio 48.7 H (9.0-21.6) Random Glucose 276 H (70-110) mg/dL C-Reactive Prot, Quant 1.3 H (0.0-0.9) mg/dL B-Natriuretic Peptide 8760 H (5-550) pg/mL Total Protein (6.2-8.2) gm/dL Albumin 2.8 L (3.4-5.0) gm/dl 11/03/20 11/03/20 Range/Units 09:50 09:50 WBC 2.3 L (4.0-10.5) K/mm3 RBC 2.55 L (4.2-5.4) M/mm3 Hgb 7.6 L* (12.5-16.0) gm/dL Hct 27.6 L (37.0-47.0) % MCV 108.2 H (78-100) fl MCHC 27.5 L (32-36) g/dl RDW 20.8 H (11.5-14.0) % Plt Count 110 L (150-450) K/mm3 MPV 12.9 H (8-12.5) fl Immature Gran % (Auto) 0.00 L (0.001-0.429) % Neutrophils % 82.8 H (42-75.0) % Neutrophils % (Manual) (42-75) % Lymphocytes % 11.5 L (20-51) % Lymphocytes % (Manual) (20-51) % Eosinophils % (Manual) (0-3) % Lymphocytes # 0.26 L (1.5-3.5) k/mm3 Lymphocytes # (Manual) (1.5-3.5) k/mm3 Platelet Estimate (NORMAL) PT (9.1-10.7) Seconds INR (Anticoag Therapy) (0.92-1.08) INR Plasma Sodium 144 H (130-142) mmol/L Potassium 4.8 H (3.4-4.6) mmol/L Carbon Dioxide 35.4 H (24-32.6) mmol/L BUN 86 H (3-23) mg/dL Creatinine 1.73 H (0.4-1.4) mg/dL Est GFR (Non-Af Amer) 30 L (60-130) mL/min BUN/Creatinine Ratio 49.7 H (9.0-21.6) Random Glucose 197 H (70-110) mg/dL C-Reactive Prot, Quant (0.0-0.9) mg/dL B-Natriuretic Peptide (5-550) pg/mL Total Protein 6.0 L (6.2-8.2) gm/dL Albumin 2.5 L (3.4-5.0) gm/dl Laboratory Results WBC 2.3 K/mm3 (4.0-10.5) L 11/03/20 09:50 RBC 2.55 M/mm3 (4.2-5.4) L 11/03/20 09:50 Hgb 7.6 gm/dL (12.5-16.0) L* 11/03/20 09:50 Hct 27.6 % (37.0-47.0) L 11/03/20 09:50 MCV 108.2 fl (78-100) H 11/03/20 09:50 MCH 29.8 pg (27-31) 11/03/20 09:50 MCHC 27.5 g/dl (32-36) L 11/03/20 09:50 RDW 20.8 % (11.5-14.0) H 11/03/20 09:50 Plt Count 110 K/mm3 (150-450) L 11/03/20 09:50 MPV 12.9 fl (8-12.5) H 11/03/20 09:50 Immature Gran % (Auto) 0.00 % (0.001-0.429) L 11/03/20 09:50 Immature Gran # (Auto) 0.00 K/mm3 (0.000-0.0310) 11/03/20 09:50 Neutrophils % 82.8 % (42-75.0) H 11/03/20 09:50 Neutrophils % (Manual) 78 % (42-75) H 11/02/20 15:26 Lymphocytes % 11.5 % (20-51) L 11/03/20 09:50 Lymphocytes % (Manual) 14 % (20-51) L 11/02/20 15:26 Monocytes % 4.4 % (0.0-9) 11/03/20 09:50 Monocytes % (Manual) 4 % (0-9) 11/02/20 15:26 Eosinophils % 0.9 % (0.0-3.0) 11/03/20 09:50 Eosinophils % (Manual) 4 % (0-3) H 11/02/20 15:26 Basophils % 0.4 % (0.0-1.0) 11/03/20 09:50 Nucleated RBC % 0.0 k/mm3 (0-1) 11/03/20 09:50 Neutrophils # 1.9 K/mm3 (1.3-6.0) 11/03/20 09:50 Neutrophils # (Manual) 1.7 K/mm3 (1.3-6.0) 11/02/20 15:26 Lymphocytes # 0.26 k/mm3 (1.5-3.5) L 11/03/20 09:50 Lymphocytes # (Manual) 0.3 k/mm3 (1.5-3.5) L 11/02/20 15:26 Monocytes # 0.1 k/mm3 (0.0-1.0) 11/03/20 09:50 Monocytes # (Manual) 0.1 k/mm3 (0.0-1.0) 11/02/20 15:26 Eosinophils # 0.0 k/mm3 (0.0-0.7) 11/03/20 09:50 Eosinophils # (Manual) 0.1 k/mm3 (0.0-0.7) 11/02/20 15:26 Absolute Basophils 0.0 k/mm3 (0.0-0.1) 11/03/20 09:50 Platelet Estimate Decreased (NORMAL) L 11/02/20 15:26 Hypochromasia 2+ 11/02/20 15:26 Anisocytosis 2+ 11/02/20 15:26 Schistocytes 2+ 11/02/20 15:26 PT 44.2 Seconds (9.1-10.7) H 11/02/20 15:26 INR (Anticoag Therapy) 4.57 INR (0.92-1.08) H* 11/02/20 15:26 Sodium 142 mmol/L (132-142) 11/03/20 09:50 Plasma Sodium 144 mmol/L (130-142) H 11/03/20 09:50 Potassium 4.8 mmol/L (3.4-4.6) H 11/03/20 09:50 Chloride 104 mmol/L (97-106) 11/03/20 09:50 Carbon Dioxide 35.4 mmol/L (24-32.6) H 11/03/20 09:50 Anion Gap 7.4 mmol/L (6.8-13.8) 11/03/20 09:50 BUN 86 mg/dL (3-23) H 11/03/20 09:50 Creatinine 1.73 mg/dL (0.4-1.4) H 11/03/20 09:50 Est GFR (Non-Af Amer) 30 mL/min (60-130) L 11/03/20 09:50 BUN/Creatinine Ratio 49.7 (9.0-21.6) H 11/03/20 09:50 Random Glucose 197 mg/dL (70-110) H 11/03/20 09:50 Lactic Acid, Venous 1.9 mmol/L (0.4-2.0) 11/02/20 15:26 Calcium 8.7 mg/dL (7.9-10.9) 11/03/20 09:50 Calcium Adj for Albumin 9.6 mg/dL (8.4-10.2) 11/03/20 09:50 Total Bilirubin 0.4 mg/dL (0.0-1.1) 11/03/20 09:50 AST 27 U/L (0-48) 11/03/20 09:50 ALT 22 U/L (19-67) 11/03/20 09:50 Alkaline Phosphatase 100 U/L (50-170) 11/03/20 09:50 C-Reactive Prot, Quant 1.3 mg/dL (0.0-0.9) H 11/02/20 15:26 B-Natriuretic Peptide 8760 pg/mL (5-550) H 11/02/20 15:26 Total Protein 6.0 gm/dL (6.2-8.2) L 11/03/20 09:50 Albumin 2.5 gm/dl (3.4-5.0) L 11/03/20 09:50 SARS-CoV-2 (PCR) Not detected (NotDetected) 11/02/20 16:40 Assessment/Plan - Narrative Narrative: is an 84 yo female with acute cellulitis of left lower extremity. Will admit to observation and start on levaquin q48hr due to creatin ine clearance. Will monitor for response. Will continue diuretics due to lower extremity edema that is likely contributing to cellulitis but is secondary to chronic diastolic CHF. She also has chronic conditions of anemia secondary to CKD stage III. Plan to discharge to home tomorrow with outpatient follow up. Will hold coumadin due to supratherapeutic INR. - Assessment/Plan (1) Cellulitis of left lower extremity Problem: Acute (2) Supratherapeutic INR Problem: Acute (3) Anemia Problem: Chronic Qualifiers: Anemia type: due to chronic kidney disease Chronic kidney disease stage 3 subtype: stage 3b (GFR 30-44) Qualified Code(s): D64.9 - Anemia, unspecified (4) CKD (chronic kidney disease) stage 3, GFR 30-59 ml/min Problem: Chronic Qualifiers: Chronic kidney disease stage 3 subtype: stage 3b (GFR 30-44) Qualified Code(s): N18.32 - Chronic kidney disease, stage 3b (5) Caloric malnutrition Problem: Chronic (6) Chronic diastolic CHF (congestive heart failure) Problem: Chronic
[2020-11-03] MEDS ORDERED: FERROUS SULFATE 325 MG TABLET PO SCH (12:00)
--- NOTE | 2020-11-03 13:05 | DS ---
(1) Cellulitis of left lower extremity Problem: Acute (2) Supratherapeutic INR Problem: Acute (3) Anemia Problem: Chronic Qualifiers: Anemia type: due to chronic kidney disease Chronic kidney disease stage 3 subtype: stage 3b (GFR 30-44) Qualified Code(s): D64.9 - Anemia, unspecified (4) CKD (chronic kidney disease) stage 3, GFR 30-59 ml/min Problem: Chronic Qualifiers: Chronic kidney disease stage 3 subtype: stage 3b (GFR 30-44) Qualified Code(s): N18.32 - Chronic kidney disease, stage 3b (5) Caloric malnutrition Problem: Chronic (6) Chronic diastolic CHF (congestive heart failure) Problem: Chronic Date of Discharge:: 11/03/20 Hospital Course: is an 84 yo female admitted for left lower extremity cellulitis. She was finishing up cefdinir for pneumonia while this occurred and was thus changed to levaquin on admission. Her cellulitis appears improved today and will be discharged to home with continued Levaquin. Her coumadin was held due to elevated INR. Discussed with Coumadin clinic regarding restarting her Coumadin. Will start 5mg on sunday and 2.5mg all other days starting today. She will have her INR rechecked next week by home health. A face to face was completed today at discharge to set up home health. It is physically taxing to leave the home and she needs nursing for INR monitoring, medication management, and monitoring of her fluid status for CHF. She may have a video visit with her PCP Dr. Lema. Procedures Performed: none Results and Findings: Lab Pending Results 11/02/20 15:26: WBC 2.2 L, RBC 2.77 L, Hgb 8.2 L, Hct 30.1 L, MCV 108.7 H, MCH 29.6, MCHC 27.2 L, RDW 20.9 H, Plt Count 92 L, MPV 10.4, Neutrophils % (Manual) 78 H, Lymphocytes % (Manual) 14 L, Monocytes % (Manual) 4, Eosinophils % (Manual) 4 H, Neutrophils # (Manual) 1.7, Lymphocytes # (Manual) 0.3 L, Monocytes # (Manual) 0.1, Eosinophils # (Manual) 0.1, Platelet Estimate Decreased L, Hypochromasia 2+, Anisocytosis 2+, Schistocytes 2+ 11/02/20 15:26: PT 44.2 H, INR (Anticoag Therapy) 4.57 H* 11/02/20 15:26: Sodium 140, Plasma Sodium 143 H, Potassium 4.9 H, Chloride 103, Carbon Dioxide 34.0 H, Anion Gap 7.9, BUN 95 H, Creatinine 1.95 H D, Est GFR (Non-Af Amer) 26 L D, BUN/Creatinine Ratio 48.7 H, Random Glucose 276 H, Calcium 8.6, Calcium Adj for Albumin 9.2, Total Bilirubin 0.4, AST 28, ALT 28, Alkaline Phosphatase 114, C-Reactive Prot, Quant 1.3 H, B-Natriuretic Peptide 8760 H, Total Protein 6.6, Albumin 2.8 L 11/02/20 15:26: Lactic Acid, Venous 1.9 11/02/20 16:40: SARS-CoV-2 (PCR) Not detected 11/03/20 09:50: WBC 2.3 L, RBC 2.55 L, Hgb 7.6 L*, Hct 27.6 L, MCV 108.2 H, MCH 29.8, MCHC 27.5 L, RDW 20.8 H, Plt Count 110 L, MPV 12.9 H, Immature Gran % (Auto) 0.00 L, Immature Gran # (Auto) 0.00, Neutrophils % 82.8 H, Lymphocytes % 11.5 L, Monocytes % 4.4, Eosinophils % 0.9, Basophils % 0.4, Nucleated RBC % 0.0, Neutrophils # 1.9, Lymphocytes # 0.26 L, Monocytes # 0.1, Eosinophils # 0.0, Absolute Basophils 0.0 11/03/20 09:50: Sodium 142, Plasma Sodium 144 H, Potassium 4.8 H, Chloride 104, Carbon Dioxide 35.4 H, Anion Gap 7.4, BUN 86 H, Creatinine 1.73 H, Est GFR (Non- Af Amer) 30 L, BUN/Creatinine Ratio 49.7 H, Random Glucose 197 H, Calcium 8.7, Calcium Adj for Albumin 9.6, Total Bilirubin 0.4, AST 27, ALT 22, Alkaline Phosphatase 100, Total Protein 6.0 L, Albumin 2.5 L 11/03/20 09:50: PT 33.8 H, INR (Anticoag Therapy) 3.45 H Discharge Location: Home Disposition: Home Health Service [facility] Agency[facility] Condition: Stable Face to Face Encounter completed per CMS Guidelines: Yes Discharge Activity: Activity as tolerated Discharge Diet: Low salt Referrals: Thu Lema MD [Primary Care Provider] - One Week Problem Oriented Discharge Instructions to Patient/Family: Cellulitis, Adult, [id number] Additional Patient Instructions (free text): [facility] ongoing, please call and fax discharge orders to them. Home Health nurse to draw PT/INR on and call results to [facility]. Prescriptions (Any new or edited meds): Warfarin Sodium 5 mg PO DAILY #30 Complete Home Medications List: Complete Home Medication List: losartan 25 mg tablet 25 mg PO DAILY 03/18/19 Albuterol Sulfate [Ventolin HFA] 1 puff IH QID PRN 07/15/19 metformin 500 mg tablet 500 mg PO BID #180 tab 08/11/20 Albuterol Sulfate 2.5 mg IH BID PRN 10/15/20 Ferrous Sulfate [Iron] 325 mg PO DAILY@1200 10/16/20 albuterol sulfate 2.5 mg/0.5 mL solution for nebulization 2.5 mg IH Q4H PRN #100 vial 10/29/20 ipratropium 0.5 mg-albuterol 3 mg (2.5 mg base)/3 mL nebulization soln 3 ml IH BIDRT #100 nebu 10/29/20 furosemide 80 mg tablet 80 mg PO BID #60 tab 11/01/20 Gemfibrozil 600 mg PO BID 11/02/20 Warfarin Sodium 5 mg PO DAILY #30 11/03/20 Forms: Patient Portal Registration
[2020-11-03 14:42] VITALS: BP 126/57
[2020-11-04] MEDS ORDERED: LOSARTAN POTASSIUM 50 MG TABLET PO SCH (09:00)
== END 2020-11-03 15:30 | disposition home health service (06) ==
LOC: MS 14:11 → ER 14:11 → MS 18:45
PROVIDERS: ADMIT Family Medicine; ATTEND Family Medicine
DX: I50.32 Chronic diastolic (congestive) heart failure; L03.116 Cellulitis of left lower limb; Z79.01 Long term (current) use of anticoagulants; D63.1 Anemia in chronic kidney disease; E46 Unspecified protein-calorie malnutrition; N18.32 Chronic kidney disease, stage 3b

== ENCOUNTER 2020-11-19 20:47 | Inpatient (IN) ==
--- NOTE | 2020-11-19 21:32 | ERNOTE ---
Medical Problem HPI - Narrative Date of Service: 11/19/20 - General Chief Complaint: General Assessment Time Seen by Provider: 11/19/20 21:11 Source: patient, family Exam Limitations: no limitations - Immun/Allergies/Home Medications Immunizations: IMMUNIZATION HX Immunizations Up to Date Yes History of Influenza Vaccine Yes Hx Pneumococcal Vaccination Yes Allergies/Adverse Reactions: Allergies Sulfa (Sulfonamide Antibiotics) Allergy (Unknown, Verified 11/10/20 10:57) Other Not sure of what the reaction was, patient state it caused her get anemia. amlodipine Adverse Reaction (Verified 11/10/20 10:57) Other cough Home Medications: HOME MEDICATIONS losartan 25 mg tablet 25 mg PO DAILY 03/18/19 [Last Taken 10/15/20 08:00] Albuterol Sulfate [Ventolin HFA] 1 puff IH QID PRN 07/15/19 [Last Taken 10/15/20 08:00] metformin 500 mg tablet 500 mg PO BID #180 tab 08/11/20 [Last Taken 10/15/20 08:00] Albuterol Sulfate 2.5 mg IH BID PRN 10/15/20 [Last Taken Unknown] Ferrous Sulfate [Iron] 325 mg PO DAILY@1200 10/16/20 [Last Taken Unknown] albuterol sulfate 2.5 mg/0.5 mL solution for nebulization 2.5 mg IH Q4H PRN #100 vial 10/29/20 [Last Taken Unknown] ipratropium 0.5 mg-albuterol 3 mg (2.5 mg base)/3 mL nebulization soln 3 ml IH BIDRT #100 nebu 10/29/20 [Last Taken Unknown] Gemfibrozil 600 mg PO BID 11/02/20 [Last Taken Unknown] Levofloxacin [Levaquin] 750 mg PO Q48H #10 tab 11/03/20 [Last Taken Unknown] Warfarin Sodium 5 mg PO DAILY #30 11/03/20 [Last Taken Unknown] Furosemide [Lasix] 40 mg PO BID 11/19/20 [Last Taken Unknown] - History of Present History Narrative: Patient is an 84-year-old female that presents to the emergency department with known history of congestive heart failure, recurrent renal disease, and aplastic anemia. Daughter and other family members have been staying with her for the past 2 months but she prior to this had lived alone. Patient is currently being treated for an ulcer on her right foot. Patient denies pain other than the right foot if someone bumps up against it. Daughter noted tonight that she had emesis x2. Patient admits to dark stools but states she is on iron. Patient is pending a blood transfusion in a.m. Timing: constant Severity: mild Review of Systems - Review of Systems Constitutional: Present: no symptoms reported EYE: Present: no symptoms reported ENT: Present: no symptoms reported Respiratory: Present: no symptoms reported Cardiology: Present: no symptoms reported Gastrointestinal/Abdominal: Present: no symptoms reported Genitourinary: Present: frequency Musculoskeletal: Present: no symptoms reported Skin: Present: no symptoms reported Neurological: Present: no symptoms reported Endocrine: Present: other - elevated blood sugar Hematologic/Lymphatic: Present: easy bruising, easy bleeding Psych: Present: no symptoms reported Medical History (Last Reviewed 11/19/20 @ 23:48 by Aaliyah Villa MD) Refused influenza vaccine (Acute) Onset Date: ~06/26/18 Congestive heart failure (CHF) Anemia, aplastic Onset Date: Unknown Diabetes mellitus type 2 in nonobese Onset Date: Unknown Hyperlipidemia Onset Date: Unknown Hypertension Onset Date: Unknown Hypothyroidism Onset Date: Unknown Vitamin D deficiency Onset Date: Unknown Surgical History: Surgical History (Last Reviewed 11/19/20 @ 23:48 by Aaliyah Villa MD) History of aortic valve replacement Onset Date: ~1987, History of cholecystectomy Onset Date: Unknown History of hysterectomy Onset Date: ~1964 Family History: Family History (Last Reviewed 11/19/20 @ 23:48 by Aaliyah Villa MD) Mother Diabetes Hypertension CAD (coronary artery disease) Father , 78 Broken hip Social History: (Last Reviewed 11/19/20 @ 23:48 by Aaliyah Villa MD) Social History: Marital status: / household members: none Tobacco: Smoking Status: Never smoker Alcohol: alcohol intake: never Substance Use: substance use type: does not use Dietary Habits: caffeine: Yes Physical Exam - Physical Exam General Appearance: Present: wd/wn, alert, mild distress Head Exam: Present: normal inspection, other - dried blood both nostrils Eye Exam: Normal inspection: bilateral, PERRL: bilateral, EOMI: bilateral Ears, Nose, Throat: Present: normal ENT inspection, dry mucous membranes Neck: Present: normal inspection, other - JVD Respiratory: Present: rales - bilateral bases Cardiovascular/Chest: Present: regular rate, rhythm, no murmur Peripheral Pulses: N=norm/S=strong/W=weak/B=bound/A=absent: Radial (R): Normal, Radial (L): Normal Gastrointestinal/Abdominal: Present: normal bowel sounds, nontender, nondistended, soft Rectal Exam: Present: nontender, normal rectal tone, other - light brown smear of stool Back Exam: Present: normal inspection, normal range of motion Extremity Exam: Present: pedal edema - marked Neurological Exam: Present: alert, oriented, normal mood/affect, no motor/sensory deficits, cash poster II-XII nml as tested Skin Exam: Present: skin rash, other - multiple areas of superficial hemorrhages Progress - Results and Orders Patient's Lab Results:: I have reviewed the patient's lab results. Results and Orders: Laboratory Tests 11/19/20 11/19/20 11/19/20 21:30 21:30 21:30 Hgb 7.2 L* Plt Count 54 L INR (Anticoag Therapy) 6.69 H* Plasma Sodium 143 H Potassium 5.3 H Anion Gap 15.5 H BUN 135 H Creatinine 2.77 H B-Natriuretic Peptide 5639 H Albumin 2.9 L Stool Occult Blood 11/19/20 23:02 Hgb Plt Count INR (Anticoag Therapy) Plasma Sodium Potassium Anion Gap BUN Creatinine B-Natriuretic Peptide Albumin Stool Occult Blood Negative - Vital Signs Patient's Vital Signs:: I have reviewed the patient's vital signs. Vital Signs: Vital Signs 11/19/20 20:47 Temperature 35.9 C L Pulse Rate 86 Respiratory Rate 22 H Blood Pressure 116/35 O2 Sat by Pulse Oximetry 100 - Progress/Reassessment Chief Complaint: General Assessment Progress:: Unchanged Progress Note-Subjective: Discussed lab results with patient and family. Patient will gradually be hydrated at 80 cc of normal saline per hour. Transfusion is ordered 1 unit packed red blood cells. Vitamin K is given 5 mg IV. 11/19/20 23:55 Plan - Plan Plan: Case is discussed with Dr. Green on-call physician. Patient will be admitted for observation. Orders were placed for 1 unit of packed red blood cells, vitamin K 5 mg IV, and stool for occult blood. Departure Clinical Impression: Anemia, Supratherapeutic INR, Acute kidney injury superimposed on CKD, Caloric malnutrition, Hyperkalemia - Departure Disposition: Short Term Hospital Inpatient Condition: Fair Referrals: Thu Lema MD [Primary Care Provider] -
[2020-11-19 21:46] LABS: Hematocrit 24.7 % (37.0-47.0); Mean Cell Volume 105.1 fl (78-100); Mean Corpuscular Hemoglobin 30.2 pg (27-31); Mean Corpuscular Hgb Conc 28.7 g/dl (32-36); Neutrophil # 4.7 K/mm3 (1.3-6.0); Neutrophil % 90.5 % (42-75.0); Platelet Count 54 K/mm3 (150-450); Red Blood Count 2.35 M/mm3 (4.2-5.4); Red Cell Distribution Width 20.1 % (11.5-14.0); White Blood Count 5.2 K/mm3 (4.0-10.5)
[2020-11-19 21:48] LABS: Hemoglobin 7.2 gm/dL (12.5-16.0)
[2020-11-19 21:59] LABS: Prothrombin Time (Patient) 63.6 Seconds (9.1-10.7)
[2020-11-19 22:08] LABS: Albumin * 2.9 gm/dl (3.4-5.0); Anion Gap 15.5 mmol/L (6.8-13.8); BUN/Creatinine Ratio 48.7 (9.0-21.6); Bilirubin, Total 0.5 mg/dL (0.0-1.1); Calcium * 9.4 mg/dL (7.9-10.9); Carbon Dioxide 27.8 mmol/L (24-32.6); Magnesium 2.3 mg/dL (1.2-2.8); Potassium 5.3 mmol/L (3.4-4.6); Total Protein 6.5 gm/dL (6.2-8.2)
[2020-11-19 22:13] LABS: INR 6.69 INR (0.92-1.08)
[2020-11-19] MEDS ORDERED: PHYTONADIONE (VIT K1) 10 MG/ML AMPUL IV ONE ×2 (22:20→22:41)
[2020-11-19 22:24] LABS: Urine Bilirubin Negative (NEGATIVE); Urine Ketone Negative (NEGATIVE); Urine Nitrite Negative (NEGATIVE); Urine Protein Negative (NEGATIVE); Urine Specific Gravity 1.015 SP.GR. (1.005-1.010); Urine Urobilinogen Normal (NORMAL)
[2020-11-19 22:34] LABS: Urine Appearance Slightly Cloudy (CLEAR); Urine Bacteria TRACE; Urine Blood 5 /ul (NEGATIVE); Urine Color Yellow; Urine RBC 0-5 /hpf (0-5); Urine Renal Epithelial Cell TRACE /hpf; Urine Transitional Epi Cells Few - 1+ /hpf; Urine WBC 0-5 /hpf (0-5)
[2020-11-19] MEDS ORDERED: NORMAL SALINE 1,000 ML IV PRN (22:41)
[2020-11-19] MEDS ORDERED: FUROSEMIDE 10 MG/ML VIAL IV ONE (22:43)
[2020-11-20] MEDS ORDERED: ALBUTEROL SULFATE/IPRATROPIUM 3 ML NEBU IH ONE ×2 (02:31→07:40)
[2020-11-20] MEDS ORDERED: FUROSEMIDE 10 MG/ML VIAL ONE (03:59)
--- NOTE | 2020-11-20 10:05 | HP ---
Chief Complaint - Chief Complaint Date of Service: 11/20/20 Time of Service: 09:46 Chief Complaint: weakness History of Present Illness: Patient with past medical history of pulmonary fibrosis on 4 L oxygen at baseline, status post aortic valve replacement on warfarin, right foot ulcer, chronic bilateral lower extremity edema, stage IIIb CKD presents with weakness at home. She has had multiple similar hospitalizations recently. Denies recent illness. She has had a mild nosebleed for several days. She takes iron, and always has black stools. Has not had a colonoscopy, and reports she will not have one. She has had significant edema, and reports attempts have been made to improve this, but have not been successful. She has had a decreased appetite at baseline. Work-up in the ED found a supratherapeutic INR of 6, hemoglobin of 7.2, creatinine of 2.77, GFR 17. ERP reports she was scheduled for a blood transfusion 2 days from now. She was given Vit K, 80 cc/hr saline, 20 mg IV lasix in the ED. She is admitted for blood transfusion, acute kidney injury, supratherapeutic INR with bleeding. Medical History (Last Updated 11/20/20 @ 01:03 by Rosie Clarke RN) Hypothyroidism (Chronic) Onset Date: Unknown Refused influenza vaccine (Acute) Onset Date: ~06/26/18 Congestive heart failure (CHF) Anemia, aplastic Onset Date: Unknown Diabetes mellitus type 2 in nonobese Onset Date: Unknown Hyperlipidemia Onset Date: Unknown Hypertension Onset Date: Unknown Vitamin D deficiency Onset Date: Unknown Surgical History: Surgical History (Last Reviewed 11/19/20 @ 23:48 by Aaliyah Villa MD) History of aortic valve replacement Onset Date: ~1987, History of cholecystectomy Onset Date: Unknown History of hysterectomy Onset Date: ~1964 Family History: Family History (Last Reviewed 11/19/20 @ 23:48 by Aaliyah Villa MD) Mother Diabetes Hypertension CAD (coronary artery disease) Father , 78 Broken hip Social History: (Last Reviewed 11/19/20 @ 23:48 by Aaliyah Villa MD) Social History: Marital status: / household members: none Tobacco: Smoking Status: Never smoker Alcohol: alcohol intake: never Substance Use: substance use type: does not use Dietary Habits: caffeine: Yes Review Of Systems (GEN) - Review of Systems Generalized/Overall Review: Present: Weakness, Weight loss - "a while ago". Absent: Fever Respiratory: Present: Shortness of Breath. Absent: Cough Cardiac: Present: Edema. Absent: Chest Pain Abdominal: Absent: Bright blood from rectum Genitourinary: Present: No Symptoms Reported Skin: Present: Other - right foot wound ventral surface Immunizations: IMMUNIZATION HX Immunizations Up to Date Yes History of Influenza Vaccine Yes Hx Pneumococcal Vaccination Yes Allergies/Adverse Reactions: Allergies Allergy/AdvReac Type Severity Reaction Status Date / Time Sulfa (Sulfonamide Allergy Unknown Other Verified 11/10/20 10:57 Antibiotics) amlodipine AdvReac Other Verified 11/10/20 10:57 Home Medications: HOME MEDICATIONS losartan 25 mg tablet 25 mg PO DAILY 03/18/19 [Last Taken 10/15/20 08:00] Albuterol Sulfate [Ventolin HFA] 1 puff IH QID PRN 07/15/19 [Last Taken 10/15/20 08:00] metformin 500 mg tablet 500 mg PO BID #180 tab 08/11/20 [Last Taken 10/15/20 08:00] Albuterol Sulfate 2.5 mg IH BID PRN 10/15/20 [Last Taken Unknown] Ferrous Sulfate [Iron] 325 mg PO DAILY@1200 10/16/20 [Last Taken Unknown] albuterol sulfate 2.5 mg/0.5 mL solution for nebulization 2.5 mg IH Q4H PRN #100 vial 10/29/20 [Last Taken Unknown] ipratropium 0.5 mg-albuterol 3 mg (2.5 mg base)/3 mL nebulization soln 3 ml IH BIDRT #100 nebu 10/29/20 [Last Taken Unknown] Gemfibrozil 600 mg PO BID 11/02/20 [Last Taken Unknown] Levofloxacin [Levaquin] 750 mg PO Q48H #10 tab 11/03/20 [Last Taken Unknown] Warfarin Sodium 5 mg PO DAILY #30 11/03/20 [Last Taken Unknown] Furosemide [Lasix] 40 mg PO BID 11/19/20 [Last Taken Unknown] Exam - Exam Vital Signs: Vital Signs - Last Taken Temp 37.2 C 11/20/20 06:00 Pulse 79 11/20/20 08:12 Resp 18 11/20/20 08:12 BP 117/63 11/20/20 06:00 Pulse Ox 90 L 11/20/20 06:00 Constitutional: Present: Alert, Cooperative, No distress, Elderly, Thin and frail Respiratory: Present: lungs clear, normal breath sounds, other - using 4 L via NC Cardiovascular/Chest: Present: regular rate, rhythm Abdomen: Present: soft, nontender Extremity: Present: lower extremity edema - 4+ bilaterally Diagnostic Studies: Abnormal Lab Results 11/19/20 11/19/20 11/19/20 Range/Units 21:30 21:30 21:30 RBC 2.35 L (4.2-5.4) M/mm3 Hgb 7.2 L* (12.5-16.0) gm/dL Hct 24.7 L (37.0-47.0) % MCV 105.1 H (78-100) fl MCHC 28.7 L (32-36) g/dl RDW 20.1 H (11.5-14.0) % Plt Count 54 L (150-450) K/mm3 Immature Gran % (Auto) 0.60 H (0.001-0.429) % Neutrophils % 90.5 H (42-75.0) % Lymphocytes % 5.6 L (20-51) % Lymphocytes # 0.29 L (1.5-3.5) k/mm3 PT 63.6 H (9.1-10.7) Seconds INR (Anticoag Therapy) 6.69 H* (0.92-1.08) INR Plasma Sodium 143 H (130-142) mmol/L Potassium 5.3 H (3.4-4.6) mmol/L Anion Gap 15.5 H (6.8-13.8) mmol/L BUN 135 H (3-23) mg/dL Creatinine 2.77 H (0.4-1.4) mg/dL Est GFR (Non-Af Amer) 17 L (60-130) mL/min BUN/Creatinine Ratio 48.7 H (9.0-21.6) Random Glucose 170 H (70-110) mg/dL B-Natriuretic Peptide 5639 H (5-550) pg/mL Albumin 2.9 L (3.4-5.0) gm/dl Urine Blood (NEGATIVE) /ul Ur Epithelial Cells (0-5) /hpf Ur Transition Epith Cell (NONE) /hpf Hyaline Casts (NONE) /LPF Crossmatch 11/19/20 11/19/20 Range/Units 21:30 22:20 RBC (4.2-5.4) M/mm3 Hgb (12.5-16.0) gm/dL Hct (37.0-47.0) % MCV (78-100) fl MCHC (32-36) g/dl RDW (11.5-14.0) % Plt Count (150-450) K/mm3 Immature Gran % (Auto) (0.001-0.429) % Neutrophils % (42-75.0) % Lymphocytes % (20-51) % Lymphocytes # (1.5-3.5) k/mm3 PT (9.1-10.7) Seconds INR (Anticoag Therapy) (0.92-1.08) INR Plasma Sodium (130-142) mmol/L Potassium (3.4-4.6) mmol/L Anion Gap (6.8-13.8) mmol/L BUN (3-23) mg/dL Creatinine (0.4-1.4) mg/dL Est GFR (Non-Af Amer) (60-130) mL/min BUN/Creatinine Ratio (9.0-21.6) Random Glucose (70-110) mg/dL B-Natriuretic Peptide (5-550) pg/mL Albumin (3.4-5.0) gm/dl Urine Blood 5 H (NEGATIVE) /ul Ur Epithelial Cells >25 H (0-5) /hpf Ur Transition Epith Cell Few - 1+ H (NONE) /hpf Hyaline Casts 5-10 H (NONE) /LPF Crossmatch See Detail Laboratory Results WBC 5.2 K/mm3 (4.0-10.5) D 11/19/20 21:30 RBC 2.35 M/mm3 (4.2-5.4) L 11/19/20 21:30 Hgb 7.2 gm/dL (12.5-16.0) L* 11/19/20 21:30 Hct 24.7 % (37.0-47.0) L 11/19/20 21:30 MCV 105.1 fl (78-100) H 11/19/20 21:30 MCH 30.2 pg (27-31) 11/19/20 21:30 MCHC 28.7 g/dl (32-36) L 11/19/20 21:30 RDW 20.1 % (11.5-14.0) H 11/19/20 21:30 Plt Count 54 K/mm3 (150-450) L 11/19/20 21:30 Immature Gran % (Auto) 0.60 % (0.001-0.429) H 11/19/20 21:30 Immature Gran # (Auto) 0.03 K/mm3 (0.000-0.0310) 11/19/20 21:30 Neutrophils % 90.5 % (42-75.0) H 11/19/20 21:30 Lymphocytes % 5.6 % (20-51) L 11/19/20 21:30 Monocytes % 2.7 % (0.0-9) 11/19/20 21:30 Eosinophils % 0.6 % (0.0-3.0) 11/19/20 21: Basophils % 0.0 % (0.0-1.0) 11/19/20 21: Nucleated RBC % 0.0 k/mm3 (0-1) 11/19/20 21:30 Neutrophils # 4.7 K/mm3 (1.3-6.0) 11/19/20 21:30 Lymphocytes # 0.29 k/mm3 (1.5-3.5) L 11/19/20 21:30 Monocytes # 0.1 k/mm3 (0.0-1.0) 11/19/20 21:30 Eosinophils # 0.0 k/mm3 (0.0-0.7) 11/19/20 21:30 Absolute Basophils 0.0 k/mm3 (0.0-0.1) 11/19/20 21:30 PT 63.6 Seconds (9.1-10.7) H 11/19/20 21:30 INR (Anticoag Therapy) 6.69 INR (0.92-1.08) H* 11/19/20 21:30 Sodium 142 mmol/L (132-142) 11/19/20 21:30 Plasma Sodium 143 mmol/L (130-142) H 11/19/20 21:30 Potassium 5.3 mmol/L (3.4-4.6) H 11/19/20 21:30 Chloride 104 mmol/L (97-106) 11/19/20 21: Carbon Dioxide 27.8 mmol/L (24-32.6) 11/19/20 21:30 Anion Gap 15.5 mmol/L (6.8-13.8) H 11/19/20 21:30 BUN 135 mg/dL (3-23) H 11/19/20 21: Creatinine 2.77 mg/dL (0.4-1.4) H 11/19/20 21:30 Est GFR (Non-Af Amer) 17 mL/min (60-130) L 11/19/20 21: BUN/Creatinine Ratio 48.7 (9.0-21.6) H 11/19/20 21: Random Glucose 170 mg/dL (70-110) H 11/19/20: Calcium 9.4 mg/dL (7.9-10.9) 11/19/20: Calcium Adj for Albumin 10.0 mg/dL (8.4-10.2) 11/19/20: Magnesium 2.3 mg/dL (1.2-2.8) 11/19/20 21: Total Bilirubin 0.5 mg/dL (0.0-1.1) 11/19/20 21: AST 21 U/L (0-48) 11/19/20: ALT 23 U/L (19-67) 11/19/20 21: Alkaline Phosphatase 93 U/L (50-170) 11/19/20 21: B-Natriuretic Peptide 5639 pg/mL (5-550) H 11/19/20 21:30 Total Protein 6.5 gm/dL (6.2-8.2) 11/19/20 21: Albumin 2.9 gm/dl (3.4-5.0) L 11/19/20 21:30 Urine Color Yellow 11/19/20 22:20 Urine Appearance Slightly cloudy (CLEAR) 11/19/20 22: Urine pH 5.0 pH (5.0-7.0) 11/19/20 22:20 Ur Specific [place] 1.015 SP.GR. (1.005-1.010) 11/19/20 22:20 Urine Protein Negative mg/dL (NEGATIVE) 11/19/20 22:20 Urine Glucose (UA) Negative mg/dL (NEGATIVE) 11/19/20 22:20 Urine Ketones Negative mg/dL (NEGATIVE) 11/19/20 22:20 Urine Blood 5 /ul (NEGATIVE) H 11/19/20 22:20 Urine Nitrate Negative (NEGATIVE) 11/19/20 22:20 Urine Bilirubin Negative mg/dl (NEGATIVE) 11/19/20 22:20 Urine Urobilinogen Normal EU/dl (NORMAL) 11/19/20 22:20 Ur Leukocyte Esterase Negative /ul (NEGATIVE) 11/19/20 22:20 Urine RBC 0-5 /hpf (0-5) 11/19/20 22:20 Urine WBC 0-5 /hpf (0-5) 11/19/20 22:20 Ur Epithelial Cells >25 /hpf (0-5) H 11/19/20 22:20 Ur Transition Epith Cell Few - 1+ /hpf (NONE) H 11/19/20 22:20 Ur Renal Epithelial Cell Trace /hpf (NONE) 11/19/20 22:20 Urine Bacteria Trace (NONE) 11/19/20 22:20 Hyaline Casts 5-10 /LPF (NONE) H 11/19/20 22:20 Urine Culture Comments No culture indicated 11/19/20 22:20 Stool Occult Blood Negative 11/19/20 23:02 SARS-CoV-2 (PCR) Not detected (NotDetected) 11/19/20 22:59 Blood Type A Positive 11/19/20 21:30 Antibody Screen Negative 11/19/20 21:30 Crossmatch See Detail 11/19/20 21:30 Assessment/Plan - Narrative Narrative: She has several significant comorbidities, resulting in multiple recent hospital admissions. Her renal failure is worsened from her baseline, so she would require hydration, however she has stage II diastolic heart failure and 4+ bilateral lower extremity edema. She may not tolerate hydration. This morning's labs are pending. If no improvement, will need to discuss possible hospice referral. Her oxygen requirement is at her baseline. She reports having daughters available to stay with her at all times. - Assessment/Plan (1) Lower extremity edema Problem: Acute (2) Symptomatic anemia Problem: Acute (3) Chronic kidney disease, stage IV (severe) Problem: Acute (4) Supratherapeutic INR Problem: Acute (5) HTN (hypertension) Problem: Chronic Qualifiers: (6) SOB (shortness of breath) Problem: Chronic (7) Pulmonary fibrosis Problem: Chronic (8) CKD (chronic kidney disease) stage 3, GFR 30-59 ml/min Problem: Chronic Qualifiers: (9) Chronic diastolic CHF (congestive heart failure) Problem: Chronic
[2020-11-20 10:11] LABS: Hemoglobin 8.3 gm/dL (12.5-16.0); Mean Cell Volume 101.1 fl (78-100); Mean Corpuscular Hgb Conc 29.6 g/dl (32-36); Neutrophil # 3.5 K/mm3 (1.3-6.0); Neutrophil % 90.7 % (42-75.0); Red Blood Count 2.77 M/mm3 (4.2-5.4); Red Cell Distribution Width 21.2 % (11.5-14.0); White Blood Count 3.9 K/mm3 (4.0-10.5)
[2020-11-20 10:21] LABS: Prothrombin Time (Patient) 19.4 Seconds (9.1-10.7)
[2020-11-20 10:24] LABS: Platelet Count 30 K/mm3 (150-450)
[2020-11-20 10:26] LABS: INR 1.92 INR (0.92-1.08)
[2020-11-20 10:27] LABS: Albumin * 2.8 gm/dl (3.4-5.0); Anion Gap 15.3 mmol/L (6.8-13.8); BUN/Creatinine Ratio 49.3 (9.0-21.6); Bilirubin, Total 0.9 mg/dL (0.0-1.1); Ca. Corrected For Albumin 9.7 mg/dL (8.4-10.2); Calcium * 9.1 mg/dL (7.9-10.9); Carbon Dioxide 27.8 mmol/L (24-32.6); Potassium 5.1 mmol/L (3.4-4.6); Total Protein 6.1 gm/dL (6.2-8.2)
[2020-11-20] MEDS ORDERED: WARFARIN SODIUM 5 MG TABLET PO SCH (12:45)
[2020-11-20] MEDS: LOSARTAN POTASSIUM 50 MG TABLET PO SCH (14:21)
[2020-11-20] MEDS: ALBUTEROL SULFATE 2.5 MG/0.5 ML VIAL.NEB IH PRN (14:23)
[2020-11-20] MEDS: WARFARIN SODIUM 2.5 MG TABLET PO SCH (17:26)
[2020-11-20] MEDS: ALBUTEROL SULFATE/IPRATROPIUM 3 ML NEBU IH SCH (19:50)
[2020-11-20] MEDS: GEMFIBROZIL 600 MG TABLET PO SCH (21:03)
[2020-11-21] MEDS: ALBUTEROL SULFATE 2.5 MG/0.5 ML VIAL.NEB IH PRN (01:08)
[2020-11-21] MEDS: ALBUTEROL SULFATE/IPRATROPIUM 3 ML NEBU IH SCH (06:11)
[2020-11-21 06:42] LABS: Hematocrit 29.5 % (37.0-47.0); Hemoglobin 8.6 gm/dL (12.5-16.0); Mean Cell Volume 102.4 fl (78-100); Mean Corpuscular Hemoglobin 29.9 pg (27-31); Mean Corpuscular Hgb Conc 29.2 g/dl (32-36); NRBC# 0.1 k/mm3 (0-1); Neutrophil # 4.8 K/mm3 (1.3-6.0); Neutrophil % 93.8 % (42-75.0); Platelet Count 38 K/mm3 (150-450); Red Blood Count 2.88 M/mm3 (4.2-5.4); White Blood Count 5.1 K/mm3 (4.0-10.5)
[2020-11-21 06:45] LABS: Albumin * 2.9 gm/dl (3.4-5.0); Anion Gap 15.4 mmol/L (6.8-13.8); BUN/Creatinine Ratio 51.2 (9.0-21.6); Bilirubin, Total 0.8 mg/dL (0.0-1.1); Ca. Corrected For Albumin 9.9 mg/dL (8.4-10.2); Calcium * 9.3 mg/dL (7.9-10.9); Carbon Dioxide 27.5 mmol/L (24-32.6); Potassium 4.9 mmol/L (3.4-4.6); Total Protein 6.4 gm/dL (6.2-8.2)
[2020-11-21 07:43] LABS: INR 1.34 INR (0.92-1.08); Prothrombin Time (Patient) 13.7 Seconds (9.1-10.7)
[2020-11-21] MEDS: GEMFIBROZIL 600 MG TABLET PO SCH (08:21)
[2020-11-21] MEDS: LOSARTAN POTASSIUM 50 MG TABLET PO SCH (08:21)
[2020-11-21] MEDS ORDERED: FUROSEMIDE 80 MG TABLET PO SCH (09:00)
[2020-11-21] MEDS ORDERED: WARFARIN SODIUM 2.5 MG TABLET PO ONE (12:13)
--- NOTE | 2020-11-21 12:34 | DS ---
(1) Lower extremity edema Problem: Chronic (2) Symptomatic anemia Problem: Chronic (3) Chronic kidney disease, stage IV (severe) Problem: Chronic (4) Supratherapeutic INR Problem: Resolved (5) HTN (hypertension) Problem: Chronic Qualifiers: (6) SOB (shortness of breath) Problem: Chronic (7) Pulmonary fibrosis Problem: Chronic (8) CKD (chronic kidney disease) stage 3, GFR 30-59 ml/min Problem: Chronic Qualifiers: (9) Chronic diastolic CHF (congestive heart failure) Problem: Chronic Date of Discharge:: 11/21/20 Hospital Course: Patient with past medical history of pulmonary fibrosis on 4 L oxygen at baseline, status post aortic valve replacement on warfarin, right foot ulcer, chronic bilateral lower extremity edema, stage IIIb CKD presents with weakness at home. She has had multiple similar hospitalizations recently. Denies recent illness. She has had a mild nosebleed for several days. She takes iron, and always has black stools. Has not had a colonoscopy, and reports she will not have one. She has had significant edema, and reports attempts have been made to improve this, but have not been successful. She has had a decreased appetite at baseline. Work-up in the ED found a supratherapeutic INR of 6, hemoglobin of 7.2, creatinine of 2.77, GFR 17. ERP reports she was scheduled for a blood transfusion 2 days from now. She was given Vit K, 80 cc/hr saline, 20 mg IV lasix in the ED. She is admitted for blood transfusion, acute kidney injury, supratherapeutic INR with bleeding. Her INR reduced to 1.92 and home 2.5 mg warfarin restarted. Her INR on the day of DC was 1.34, so she was given a dose of 5 mg warfarin prior to DC. Recommend rechecking in 2-3 days. Her hemoglobin improved to 8.3 after 1 U PRBC, and 8.6 the next day. She does not need the scheduled blood transfusion previously scheduled for tomorrow. Her platelets decreased to 30, and improved slightly to 38 on DC. 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 She was given gentle fluids in the ED, but her renal function did not improve. She also has significant bilateral lower extremity edema that did not improve after the ED's administration of IV lasix. Unable to give aggressive diuresis due to her poor renal function. Her GFR of 17 only improved to 19. Her highest recent GFR was 39 last month. With her pulmonary fibrosis, diastolic heart failure, refractory edema, worsened renal function and multiple hospitalizations, an extensive discussion was held with her and her daughter, Anyi. There is a strong possibility that interventions will not improve her medical problems. Her daughter, Ana, is her POA, but was not available during this visit. Discussed having goals of care discussions with family, and they may want to discuss this at her hospital follow up visit with her PCP. Since her hemoglobin improved after the 1 U PRBC, she felt comfortable going home on the day of DC. She has home health already arranged with [facility]. Procedures Performed: none Results and Findings: Lab Pending Results 11/19/20 21:30: WBC 5.2 D, RBC 2.35 L, Hgb 7.2 L*, Hct 24.7 L, MCV 105.1 H, MCH 30.2, MCHC 28.7 L, RDW 20.1 H, Plt Count 54 L, Immature Gran % (Auto) 0.60 H, Immature Gran # (Auto) 0.03, Neutrophils % 90.5 H, Lymphocytes % 5.6 L, Monocytes % 2.7, Eosinophils % 0.6, Basophils % 0.0, Nucleated RBC % 0.0, Neutrophils # 4.7, Lymphocytes # 0.29 L, Monocytes # 0.1, Eosinophils # 0.0, Absolute Basophils 0.0 11/19/20 21:30: PT 63.6 H, INR (Anticoag Therapy) 6.69 H* 11/19/20 21:30: Sodium 142, Plasma Sodium 143 H, Potassium 5.3 H, Chloride 104, Carbon Dioxide 27.8, Anion Gap 15.5 H, BUN 135 H, Creatinine 2.77 H, Est GFR (Non-Af Amer) 17 L, BUN/Creatinine Ratio 48.7 H, Random Glucose 170 H, Calcium 9.4, Calcium Adj for Albumin 10.0, Magnesium 2.3, Total Bilirubin 0.5, AST 21, ALT 23, Alkaline Phosphatase 93, B-Natriuretic Peptide 5639 H, Total Protein 6.5, Albumin 2.9 L 11/19/20 21:30: Blood Type A Positive, Antibody Screen Negative, Crossmatch See Detail 11/19/20 22:20: Urine Color Yellow, Urine Appearance Slightly cloudy, Urine pH 5.0, Ur Specific [place] 1.015, Urine Protein Negative, Urine Glucose (UA) Negative, Urine Ketones Negative, Urine Blood 5 H, Urine Nitrate Negative, Urine Bilirubin Negative, Urine Urobilinogen Normal, Ur Leukocyte Esterase Negative, Urine RBC 0-5, Urine WBC 0-5, Ur Epithelial Cells >25 H, Ur Transition Epith Cell Few - 1+ H, Ur Renal Epithelial Cell Trace, Urine Bacteria Trace, Hyaline Casts 5-10 H, Urine Culture Comments No culture indicated 11/19/20 22:59: SARS-CoV-2 (PCR) Not detected 11/19/20 23:02: Stool Occult Blood Negative 11/20/20 10:06: WBC 3.9 L D, RBC 2.77 L, Hgb 8.3 L, Hct 28.0 L, MCV 101.1 H, MCH 30.0, MCHC 29.6 L, RDW 21.2 H, Plt Count 30 L, Immature Gran % (Auto) 0.80 H, Immature Gran # (Auto) 0.03, Neutrophils % 90.7 H, Lymphocytes % 3.6 L, Monocytes % 4.4, Eosinophils % 0.5, Basophils % 0.0, Nucleated RBC % 0.0, Neutrophils # 3.5, Lymphocytes # 0.14 L, Monocytes # 0.2, Eosinophils # 0.0, Absolute Basophils 0.0 11/20/20 10:06: PT 19.4 H, INR (Anticoag Therapy) 1.92 H 11/20/20 10:06: Sodium 144 H, Plasma Sodium 146 H, Potassium 5.1 H, Chloride 106, Carbon Dioxide 27.8, Anion Gap 15.3 H, BUN 134 H, Creatinine 2.72 H, Est GFR (Non-Af Amer) 18 L, BUN/Creatinine Ratio 49.3 H, Random Glucose 256 H D, Calcium 9.1, Calcium Adj for Albumin 9.7, Total Bilirubin 0.9, AST 26, ALT 22, Alkaline Phosphatase 91, Total Protein 6.1 L, Albumin 2.8 L 11/21/20 06:16: WBC 5.1 D, RBC 2.88 L, Hgb 8.6 L, Hct 29.5 L, MCV 102.4 H, MCH 29.9, MCHC 29.2 L, RDW 21.0 H, Plt Count 38 L, Immature Gran % (Auto) 1.20 H, Immature Gran # (Auto) 0.06 H, Neutrophils % 93.8 H, Lymphocytes % 2.5 L, Monocytes % 2.3, Eosinophils % 0.2, Basophils % 0.0, Nucleated RBC % 0.1, Neutrophils # 4.8, Lymphocytes # 0.13 L, Monocytes # 0.1, Eosinophils # 0.0, Absolute Basophils 0.0 11/21/20 06:16: Sodium 146 H, Plasma Sodium 148 H, Potassium 4.9 H, Chloride 108 H, Carbon Dioxide 27.5, Anion Gap 15.4 H, BUN 131 H, Creatinine 2.56 H, Est GFR (Non-Af Amer) 19 L, BUN/Creatinine Ratio 51.2 H, Random Glucose 206 H, Calcium 9.3, Calcium Adj for Albumin 9.9, Total Bilirubin 0.8, AST 23, ALT 23, Alkaline Phosphatase 94, Total Protein 6.4, Albumin 2.9 L 11/21/20 06:16: PT 13.7 H, INR (Anticoag Therapy) 1.34 H Discharge Location: Home Disposition: Home self-intermediate Health Agency: [facility] Condition: Fair Discharge Activity: Activity as tolerated Discharge Diet: Resume usual diet Referrals: Thu Lema MD [Primary Care Provider] - One Week Complete Home Medications List: Complete Home Medication List: losartan 25 mg tablet 25 mg PO DAILY 03/18/19 Albuterol Sulfate [Ventolin HFA] 1 puff IH QID PRN 07/15/19 metformin 500 mg tablet 500 mg PO BID #180 tab 08/11/20 Albuterol Sulfate 2.5 mg IH BID PRN 10/15/20 Ferrous Sulfate [Iron] 325 mg PO DAILY@1200 10/16/20 albuterol sulfate 2.5 mg/0.5 mL solution for nebulization 2.5 mg IH Q4H PRN #100 vial 10/29/20 ipratropium 0.5 mg-albuterol 3 mg (2.5 mg base)/3 mL nebulization soln 3 ml IH BIDRT #100 nebu 10/29/20 Gemfibrozil 600 mg PO BID 11/02/20 Levofloxacin [Levaquin] 750 mg PO Q48H #10 tab 11/03/20 Warfarin Sodium 5 mg PO DAILY #30 11/03/20 Furosemide [Lasix] 40 mg PO BID 11/19/20
[2020-11-21] MEDS: WARFARIN SODIUM 2.5 MG TABLET PO SCH (13:37)
[2020-11-21 13:42] VITALS: BP 108/52
[2020-11-21] MEDS ORDERED: FUROSEMIDE 40 MG TABLET PO SCH (21:00)
== END 2020-11-21 14:08 | disposition home health service (06) | DRG 683 ==
LOC: ER 20:47 → MS 20:47
PROVIDERS: ADMIT Family Medicine; ATTEND Family Medicine